=== PATIENT | female | born 1945 | race Caucasian/White ===

== ENCOUNTER 2016-10-02 17:06 | Emergency (ER) | payer MEDICARE, OTHER ==
[~2016-10-02] VITALS: Ht 154.9 cm; Wt 58.5 kg
[~2016-10-02 17:06] MED LIST: CLIN1CAP6 PO; CYCL1TAB29 PO; IBUP800T23 PO; MAGICADU2 SWISH-SPIT; PERI0.126 SWISH-SPIT; PRED-503 PO
[2016-10-02 17:16] VITALS: BP 114/54; PULSE 85; RESP 16; TEMP 97.5; O2SAT 100
[2016-10-02] MEDS ORDERED: PRED20 PO (19:06)
[2016-10-02] MEDS ORDERED: CIPR-9 PO (19:06)
--- NOTE | 2016-10-02 19:24 | PD ---
HPI Chief Complaint: Lump, Cyst, Hernia Time Seen by Provider: 19:22 Travel History International Travel<30 days: No Contact w/Intl Traveler<30days: No Traveled to known affect area: No History of Present Illness HPI This 70-year-old female was sent from her emergency room clerk here for evaluation of a mass on the right posterior scalp. She says the mass has developed over the last few days. She was told she should come here to have it drained and had a scan to make sure it does not extend into the brain. She has not had fever or chills. There is no history of trauma. She emergency room clerk is treating her for a rash in her scalp. PFSH Past Medical History Diminished Hearing: No Musculoskeletal: Yes (sciatica) ?: Not Menopausal: Yes Past Surgical History Appendectomy: Yes Cholecystectomy: Yes Hysterectomy: Yes Tonsillectomy: Yes Social History Alcohol Use: No Tobacco Use: Yes (08/25 PPD) Substance Use: No Allergies-Medications (Allergen,Severity, Reaction): Coded Allergies: Codeine (Verified Allergy, Severe, Anaphylaxis-PT UNSURE OF ALLERGY, ) Penicillin (Verified Allergy, Intermediate, Anaphylaxis, 10/02/16) Reported Meds & Prescriptions Reported Meds & Active Scripts Active Reported Prednisone 20 Mg Tab 20 Mg PO DIRECTED Take 60 MG daily x 4 days, then 40 MG x 4 days, then 20 MG daily x 4 days. Cipro (Ciprofloxacin HCl) 500 Mg Tab 500 Mg PO BID Review of Systems General / Constitutional: No: Fever, Chills Eyes: No: Diploplia HENT: No: Headaches Cardiovascular: No: Chest Pain or Discomfort, Palpitations Respiratory: No: Cough Skin: Positive Rash Physical Exam Narrative GENERAL: [-] Well-developed female SKIN: Warm and dry. There is severe since every dermatitis of the scalp HEAD: Atraumatic. Normocephalic. There is a golf ball sized mass in the right occipital scalp scalp. It is soft EYES: Pupils equal and round. No scleral icterus. No injection or drainage. ENT: No nasal bleeding or discharge. Mucous membranes pink and moist. NECK: Trachea midline. No JVD. CARDIOVASCULAR: Regular rate and rhythm. No murmur appreciated. RESPIRATORY: No accessory muscle use. Clear to auscultation. Breath sounds equal bilaterally. GASTROINTESTINAL: Abdomen soft, non-tender, nondistended. Hepatic and splenic margins not palpable. MUSCULOSKELETAL: No obvious deformities. No clubbing. No cyanosis. No edema. NEUROLOGICAL: Awake and alert. No obvious cranial nerve deficits. Motor grossly within normal limits. Normal speech. PSYCHIATRIC: Appropriate mood and affect; insight and judgment normal. Data Data Last Documented VS Vital Signs Date Time Temp Pulse Resp B/P Pulse Ox O2 Delivery O2 Flow Rate FiO2 10/02/16 20:18 75 16 137/64 100 Room Air 10/02/16 17:[address] Brain W/O Iv Contrast(Rout) (10/02/16 19:22) Wound Culture And Gram Stain (10/02/16 20:28) Lidocaine 1% Inj (50 Ml) (Xylocaine 1% I (10/02/16 20:30) MDM Medical Decision Making Medical Screen Exam Complete: Yes Emergency Medical Condition: Yes Medical Record Reviewed: Yes Differential Diagnosis Differential includes abscess, sebaceous cyst Narrative Course CT is negative. I&D has been performed. Patient is stable for discharge Diagnosis Primary Impression: Abscess of scalp Disposition: DISCHARGE HOME Condition: Stable Agustin Colon MD Oct 02, 2016 19:24
[2016-10-02 20:18] VITALS: BP 137/64; PULSE 75; RESP 16; O2SAT 100
[2016-10-02] MEDS ORDERED: LIDOCAINE HCL 1% 50 ML VIAL INFIL ONE (20:30)
--- NOTE | 2016-10-02 20:46 | PD ---
Physical Exam Date Seen by Provider: Oct 02, 2016 Time Seen by Provider: 20:43 Narrative Patient is a 70-year-old female with a mass on the right posterior scalp around the occiput/superior neck for one month. It has gotten progressively larger. It is painful. It did drain spontaneously once several weeks ago. She is unsure of the type drainage. He is seeing a home school coordinator daily for severe seborrheic dermatitis of the scalp and today they recommended she come to the ED , had a CT scan and have this drained. She is being seen and managed by Dr. Colon who performed a CT scan and asked me to perform incision and drainage. Please refer to his note for full history, physical and disposition. HEAD: 6 cm area of erythema in the right occiput/superior neck that is highly fluctuant. There is a small eschar in the center and some pointing, does appear to be an abscess. It is tender to palpation. There is no surrounding lymphadenopathy or facial or cervical lymphadenopathy bilaterally. No surrounding edema or erythema. It is nonpulsatile. Patient has severe seborrheic dermatitis of the scalp. Data Data Last Documented VS Vital Signs Date Time Temp Pulse Resp B/P Pulse Ox O2 Delivery O2 Flow Rate FiO2 10/02/16 20:18 75 16 137/64 100 Room Air 10/02/16 17:[address] Brain W/O Iv Contrast(Rout) (10/02/16 19:22) Wound Culture And Gram Stain (10/02/16 20:28) Lidocaine 1% Inj (50 Ml) (Xylocaine 1% I (10/02/16 20:30) MDM Medical Record Reviewed: Yes Supervised Visit with GINO: Yes Narrative Course Patient is a 62-year-old female with an apparent abscess on the right occiput being larger for one month. She was sent her by her home school coordinator for drainage. Dr. Colon ordered a CT scan which showed a 5 cm fatty and fluid- filled soft tissue mass. Reexamined with the physician who agrees this is likely a abscess and not a lipoma. Used ultrasound and indeed there is fluid with mixed debris. Doppler shows no flow or pulsations. Performed incision and drainage per attached procedure narrative. Please refer to physician's note for full history, physical and disposition including medications for pain and antibiotics. Procedures Procedure Narrative I&D LOCATION: Right occiput SIZE: 6 cm ANESTHESIA: 1% lidocaine PROCEDURE: The abscess was prepped with Betadine and sterilely draped. The abscess was infiltrated with 4 cc of above anesthetic. Incision was made with a #11 blade with length of 2 cm and depth of 8 mm. Expressed purulent and bloody material, approximately 20 mL. The wound was copiously irrigated and loculations were broken up. The wound was left open and covered with a sterile dressing. Packing was performed with half-inch iodoform. A nonstick dressing and had compression wrap was applied. The patient was advised to keep the dressing clean and dry. Patient tolerated the procedure well. Diagnosis Primary Impression: Abscess of scalp Patient Instructions: Abscess Incision and Drainage (ED), General Instructions Additional Instruction: Keep area clean, dry, and covered with dressing/bandage Apply warm compresses daily to help with drainage Wound will continue to drain which is normal Take Tylenol or ibuprofen for pain Take medications as directed Follow-up with PCP in 2 days for packing removal, call laboratory for wound culture results Return to the ED for any acute worsening of symptoms including worsening swelling, spreading redness, fever, chills, nausea and vomiting Condition: Stable Nithin Ramirez III Oct 02, 2016 20:46
--- NOTE | 2016-10-02 20:50 | RADHPO ---
EXAM DATE/TIME: 10/02/2016 19:52 [facility] COMPARISON: No previous studies available for comparison. INDICATIONS : Right posterior cranial mass. RADIATION DOSE: 56.93 CTDIvol (mGy) MEDICAL HISTORY : Hypertension. SURGICAL HISTORY : Tonsillectomy. ENCOUNTER: Initial ACUITY: 3 days PAIN SCALE: 5/10 LOCATION: Right occipital TECHNIQUE: Multiple contiguous axial images were obtained of the head. Using automated exposure control and adj ustment of the mA and/or kV according to patient size, radiation dose was kept as low as reasonably a chievable to obtain optimal diagnostic quality images. FINDINGS: CEREBRUM: The ventricles are normal for age. No evidence of midline shift, mass lesion, hemorrhage or acute in farction. No extra-axial fluid collections are seen. POSTERIOR FOSSA: The cerebellum and brainstem are intact. The 4th ventricle is midline. The cerebellopontine angle i s unremarkable. EXTRACRANIAL: The visualized portion of the orbits is intact. There is a 5 cm soft tissue in the right occipital re gion. There some interspersed fat the findings are nonspecific. SKULL: The calvaria is intact. No evidence of skull fracture. CONCLUSION: 1. No acute intracranial abnormalities. A 5 cm soft tissue mass with interspersed fat is present in t he subcutaneous tissues of the right occipital region. Jeramy Garcia MD on October 02, 2016 at 20:47 Board Certified Radiologist. This report was verified electronically.
[2016-10-02 22:10] VITALS: BP 115/60; PULSE 85; RESP 18; O2SAT 100
== END 2016-10-02 22:13 | disposition home or self-care (01) ==
LOC: PHED 17:06
DX: R22.0 Localized swelling, mass and lump, head (principal); L02.811 Cutaneous abscess of head [any part, except face]; F17.210 Nicotine dependence, cigarettes, uncomplicated; L21.9 Seborrheic dermatitis, unspecified
CPT/HCPCS: 10061; 70450

== ENCOUNTER 2016-10-05 15:45 | Emergency (ER) | payer MEDICARE, OTHER ==
[~2016-10-05] VITALS: Ht 154.9 cm; Wt 60.0 kg
[~2016-10-05 15:45] MED LIST changes: +CIPR-9 PO; -CLIN1CAP6 PO; -CYCL1TAB29 PO; -IBUP800T23 PO; -MAGICADU2 SWISH-SPIT; -PERI0.126 SWISH-SPIT; -PRED-503 PO; +PRED20 PO
[2016-10-05 16:25] VITALS: BP 139/81; PULSE 86; RESP 16; TEMP 97.3; O2SAT 98
== END 2016-10-05 18:13 | disposition left against medical advice (07) ==
LOC: PHED 15:45 → PHEFT 18:13
DX: L02.811 Cutaneous abscess of head [any part, except face] (principal); Z53.21 Procedure and treatment not carried out due to patient leaving prior to being seen by health care provider
CPT/HCPCS: 99281

== ENCOUNTER 2016-11-23 22:13 | Inpatient (IN) | payer MEDICARE, OTHER ==
[~2016-11-23] VITALS: Ht 157.5 cm; Wt 53.0 kg
[2016-11-23 22:32] VITALS: BP 77/53; PULSE 78; RESP 18; TEMP 97.9; O2SAT 99
[2016-11-23 22:50] VITALS: BP 76/41; PULSE 64; RESP 18; O2SAT 98
[2016-11-23] MEDS ORDERED: SODIUM CHLOR 0.9% 1000 ML INJ 1,000 ML IV ONE ×2 (23:00)
[2016-11-23] MEDS ORDERED: SODIUM CHLORIDE 0.9% FLUSH 10 ML FLUSH IVF PRN (23:00)
--- NOTE | 2016-11-23 23:13 | PD ---
HPI . Fall Chief Complaint: Fall Time Seen by Provider: 23:00 Travel History International Travel<30 days: No Contact w/Intl Traveler<30days: No Traveled to known affect area: No History of Present Illness HPI Presents status post a fall. The history is obtained mainly from her son, with whom she lives. Patient has been dizzy for a while now. Tonight, she became dizzy and fell and struck her head on a piece of furniture. Following this, she was so dizzy that she could not walk. The son was able to convince her to come in to be checked out. The son reports that she has not seen a physician in 20 years. He was finally able to get her to see a primary care doctor 11/19. She was found to have a swollen right lower extremity at that time and was instructed to come to the emergency department to be evaluated for possible DVT. She refused to come. Family reports that they have noticed that she is short winded for the last several days. Patient admits depression since her 5 years ago. She has lost a significant amount of weight. She has lost the will to live. Family reports that she doesn't eat or drink very well. She does not take care of personal ADLs such as washing her hair. The patient has no known medical problems but has not seen a doctor in 20 years. The son states that they were not told anything about her blood pressure being low and she was seen primary care provider this past week. [facility] Past Medical History Diminished Hearing: No Musculoskeletal: Yes (sciatica) Menopausal: Yes Past Surgical History Appendectomy: Yes Cholecystectomy: Yes Hysterectomy: Yes Tonsillectomy: Yes Social History Alcohol Use: No Tobacco Use: Yes (08/25 PPD) Substance Use: No Allergies-Medications (Allergen,Severity, Reaction): Coded Allergies: Codeine (Verified Allergy, Severe, Anaphylaxis-PT UNSURE OF ALLERGY, ) Penicillin (Verified Allergy, Intermediate, Anaphylaxis, 11/23/16) Reported Meds & Prescriptions Reported Meds & Active Scripts Active Reported Prednisone 20 Mg Tab 20 Mg PO DIRECTED Take 60 MG daily x 4 days, then 40 MG x 4 days, then 20 MG daily x 4 days. Cipro (Ciprofloxacin HCl) 500 Mg Tab 500 Mg PO BID Review of Systems Except as stated in HPI: all other systems reviewed are Neg General / Constitutional: No: Fever, Chills Eyes: No: Blurred Vision HENT: Positive: Lightheadedness, No: Headaches Cardiovascular: No: Chest Pain or Discomfort Respiratory: Positive: Shortness of Breath Gastrointestinal: Positive: Loss of Appetite, No: Nausea, Vomiting, Diarrhea, Abdominal Pain Genitourinary: No: Urgency, Frequency, Dysuria Neurologic: Positive: Dizziness, Syncope, No: Change in Mentation, Slurred Speech, Incontinence Psychiatric: Positive: Depression, Other (she states that she does not want to live but she is not contemplating suicide) Physical Exam Narrative GENERAL: Thin, elderly woman who is lying on the stretcher with a washcloth in her mouth. SKIN: Warm and dry. HEAD:. Normocephalic. Contusion to the occiput of her scalp. EYES: Pupils equal and round. Extraocular movements are intact. ENT: No nasal bleeding or discharge. Mucous membranes pink and moist. NECK: Trachea midline. Neck is nontender with full range of motion. CARDIOVASCULAR: Regular rate and rhythm. Heart sounds are normal. RESPIRATORY: No accessory muscle use. Lungs sounded clear with full air movement throughout. GASTROINTESTINAL: Abdomen soft, non-tender, nondistended. No palpable pulsatile abdominal mass. MUSCULOSKELETAL: No obvious deformities. Right lower extremity is swollen. NEUROLOGICAL: Awake and alert. No obvious cranial nerve deficits. Motor grossly within normal limits. Normal speech. PSYCHIATRIC: Depressed, insight and judgment normal. She states "I am not stupid." (referring to suicidal ideation/intent) Data Data Last Documented VS Vital Signs Date Time Temp Pulse Resp B/P Pulse Ox O2 Delivery O2 Flow Rate FiO2 11/23/16 23:32 69 18 92/48 100 Room Air 11/23/16 22:32 97.9 Orders Electrocardiogram (11/23/16 23:00) Complete Blood Count With Diff (11/23/16 23:00) Comprehensive Metabolic Panel (11/23/16 23:00) Magnesium (Mg) (11/23/16 23:00) Ckmb (Isoenzyme) Profile (11/23/16 23:00) Troponin I (11/23/16 23:00) Urinalysis - C+S If Indicated (11/23/16 23:00) Ct Brain W/O Iv Contrast(Rout) (11/23/16 23:00) Ecg Monitoring (11/23/16 23:00) Iv Access Insert/Monitor (11/23/16 23:00) Oximetry (11/23/16 23:00) Sodium Chloride 0.9% Flush (Ns Flush) (11/23/16 23:00) Sodium Chlor 0.9% 1000 Ml Inj (Ns 1000 M (11/23/16 23:00) Ct Pulmonary Angiogram (11/23/16 23:00) Us Leg Venous Doppler (11/23/16 23:00) Sodium Chlor 0.9% 1000 Ml Inj (Ns 1000 M (11/23/16 23:00) Labs Laboratory Tests Test 11/23/16 23:15 White Blood Count 10.6 TH/MM3 Red Blood Count 4.03 MIL/MM3 Hemoglobin 11.1 GM/DL Hematocrit 34.4 % Mean Corpuscular Volume 85.3 FL Mean Corpuscular Hemoglobin 27.4 PG Mean Corpuscular Hemoglobin 32.1 % Concent Red Cell Distribution Width 14.9 % Platelet Count 439 TH/MM3 Mean Platelet Volume 6.6 FL Neutrophils (%) (Auto) 82.2 % Lymphocytes (%) (Auto) 10.5 % Monocytes (%) (Auto) 4.0 % Eosinophils (%) (Auto) 2.7 % Basophils (%) (Auto) 0.6 % Neutrophils # (Auto) 8.8 TH/MM3 Lymphocytes # (Auto) 1.1 TH/MM3 Monocytes # (Auto) 0.4 TH/MM3 Eosinophils # (Auto) 0.3 TH/MM3 Basophils # (Auto) 0.1 TH/MM3 CBC Comment DIFF FINAL Differential Comment Sodium Level 136 MEQ/L Potassium Level 3.2 MEQ/L Chloride Level 101 MEQ/L Carbon Dioxide Level 23.3 MEQ/L Anion Gap 12 MEQ/L Blood Urea Nitrogen 14 MG/DL Creatinine 1.10 MG/DL Estimat Glomerular Filtration 49 ML/MIN Rate Random Glucose 122 MG/DL Calcium Level 8.3 MG/DL Magnesium Level 2.3 MG/DL Total Bilirubin 0.4 MG/DL Aspartate Amino Transf 14 U/L (AST/SGOT) Alanine Aminotransferase 17 U/L (ALT/SGPT) Total Protein 6.3 GM/DL Albumin 2.5 GM/DL MDM Medical Decision Making Medical Screen Exam Complete: Yes Emergency Medical Condition: Yes Medical Record Reviewed: Yes (I have reviewed her records and she has actually been seen here on several previous occasions in the recent past. She is usually normotensive. Her medical problems listed in the medical record include tobacco abuse, sciatica and asthma. I have also reviewed her previous weights. She weight 79 kg in 2015 and weight 77 kg tonight.) Interpretation(s) EKG shows a sinus rhythm. Left axis deviation. No ST segment elevation or depression. No old EKGs for comparison. Differential Diagnosis Differential diagnosis of dizziness includes but is not limited to vertigo, dehydration, acute blood loss, sepsis, ACS Narrative Course Patient presents for the evaluation of dizziness which caused syncope and a fall tonight. The patient is hypotensive. She will be fluid resuscitated. I will ultrasound her leg to rule out DVT. I will CT her chest to look for PE. I will CT her head to r/o intracerebral hemorrhage. She will probably need to be admitted for further evaluation of failure to thrive. CBC & BMP Diagram 11/23/16 23:15 Patient's care is being signed out to Dr. Clarke pending her radiographic studies. The patient's blood pressure is improving with IV fluids. Diagnosis Primary Impression: Hypotension Qualified Code: I95.9 - Hypotension, unspecified hypotension type Additional Impression: Syncope Qualified Code: R55 - Syncope, unspecified syncope type Condition: Esme Moreno MD Nov 23, 2016 23:13
[2016-11-23 23:29] LABS: AUTOMATED NEUTROPHIL # 8.8 TH/MM3 (1.8-7.7); BASOPHIL # 0.1 TH/MM3 (0-0.2); BASOPHIL % 0.6 % (0.0-2.0); EOSINOPHIL # 0.3 TH/MM3 (0-0.4); EOSINOPHIL % 2.7 % (0.0-4.0); HEMATOCRIT 34.4 % (35.0-46.0); LYMPH % 10.5 % (9.0-44.0); LYMPHOCYTE # 1.1 TH/MM3 (1.0-4.8); MEAN CELL VOLUME 85.3 FL (80.0-100.0); MEAN CORPUSCULAR HEMOGLOBIN 27.4 PG (27.0-34.0); MEAN CORPUSCULAR HGB CONC 32.1 % (32.0-36.0); NEUT % 82.2 % (16.0-70.0); PLATELET COUNT 439 TH/MM3 (150-450); RED BLOOD COUNT 4.03 MIL/MM3 (4.00-5.30); RED CELL DISTRIBUTION WIDTH 14.9 % (11.6-17.2); WHITE BLOOD COUNT 10.6 TH/MM3 (4.0-11.0)
[2016-11-23 23:32] VITALS: BP 92/48; PULSE 69; RESP 18; O2SAT 100
[2016-11-23 23:35] LABS: HEMO FLAGS DIFF FINAL
[2016-11-23 23:42] LABS: CHLORIDE 101 MEQ/L (98-107); POTASSIUM 3.2 MEQ/L (3.5-5.1); SODIUM (NA) 136 MEQ/L (136-145)
[2016-11-23 23:47] LABS: ANION GAP 12 MEQ/L (5-15); BICARBONATE 23.3 MEQ/L (21.0-32.0); BLOOD UREA NITROGEN 14 MG/DL (7-18); MAGNESIUM 2.3 MG/DL (1.5-2.5)
[2016-11-23 23:50] LABS: ALT (GPT) 17 U/L (10-53); AST (GOT) 14 U/L (15-37); GLOMERULAR FILTRATION RATE 49 ML/MIN (>89)
[2016-11-23 23:52] LABS: TOTAL BILIRUBIN ADULT 0.4 MG/DL (0.2-1.0)
[2016-11-23 23:53] LABS: ALKALINE PHOSPHATASE 107 U/L (45-117)
[2016-11-24] VITALS (8 sets, daily range): BP systolic 100–127; BP diastolic 46–69; PULSE 64–78; RESP 16–19; TEMP 97.5–98.2; O2SAT 95–100
[2016-11-24 00:02] LABS: CREATINE KINASE 36 U/L (26-192)
--- NOTE | 2016-11-24 00:11 | RADHPO ---
EXAM DATE/TIME: 11/24/2016 04:39 [facility] COMPARISON: No previous studies available for comparison. INDICATIONS : Right leg pain. MEDICAL HISTORY : Right leg pain. Weight loss. Dizziness. Shortness of breath. SURGICAL HISTORY : Hysterectomy. Arthroscopy. Cholecystectomy. ENCOUNTER: Initial ACUITY: 1 week PAIN SCORE: 6/10 LOCATION: Right leg. TECHNIQUE: Venous ultrasound of the leg was performed from the inguinal ligament to the proximal calf. Real-geraldo e, color Doppler and spectral tracing, compression and augmentation techniques were used. FINDINGS: Echogenic noncompressible material is seen throughout the deep venous structures of the right lower e xtremity. This is occlusive involving the external iliac vein, common femoral vein, and superficial f emoral vein. This is nonocclusive involving the popliteal vein and trifurcation veins. CONCLUSION: Extensive DVT. Ck Cardoza Jr., MD on November 24, 2016 at 0:07 Board Certified Radiologist. This report was verified electronically.
[2016-11-24] MEDS ORDERED: EXCETAB2 PO (00:17)
[2016-11-24] MEDS ORDERED: IOHEXOL 350 MG/ML 10 ML VIAL (for RAD DIAG) IV ONE (00:59)
--- NOTE | 2016-11-24 01:05 | RADHPO ---
EXAM DATE/TIME: 11/24/2016 00:31 [facility] COMPARISON: No previous studies available for comparison. INDICATIONS : Syncope. Difficulty breathing. IV CONTRAST: 75 cc Omnipaque 350 (iohexol) IV RADIATION DOSE: 7.57 CTDIvol (mGy) MEDICAL HISTORY : None SURGICAL HISTORY : Cholecystectomy. Appendectomy.Hysterectomy. ENCOUNTER: Initial ACUITY: 3 days PAIN SCALE: 2/10 LOCATION: Bilateral chest TECHNIQUE: Volumetric scanning of the chest was performed using a pulmonary embolism protocol MIP images were re constructed. Using automated exposure control and adjustment of the mA and/or kV according to patien t size, radiation dose was kept as low as reasonably achievable to obtain optimal diagnostic quality images. FINDINGS: PULMONARY ARTERIES: No filling defects are seen in the pulmonary arteries through the segmental level. LUNGS: There is no consolidation or pneumothorax . No concerning pulmonary nodule is visualized. PLEURAE: There is no pleural thickening or pleural effusion. MEDIASTINUM: There is good visualization of the great vessels of the middle mediastinum. No evidence of mediastin al or hilar adenopathy/mass. MUSCULOSKELETAL: Within normal limits for patient age. MISCELLANEOUS: The visualized upper abdominal organs demonstrate no acute abnormality. CONCLUSION: Normal examination. Ck Cardoza Jr., MD on November 24, 2016 at 1:00 Board Certified Radiologist. This report was verified electronically.
--- NOTE | 2016-11-24 01:06 | RADHPO ---
EXAM DATE/TIME: 11/24/2016 00:26 [facility] COMPARISON: CT BRAIN W/O CONTRAST, October 02, 2016, 19:52. INDICATIONS : Dizzines. Fall. Syncope. RADIATION DOSE: 57.80 CTDIvol (mGy) MEDICAL HISTORY : None SURGICAL HISTORY : Hysterectomy. Appendectomy.Cholecystectomy. ENCOUNTER: Initial ACUITY: 3 days PAIN SCALE: 2/10 LOCATION: cranial TECHNIQUE: Multiple contiguous axial images were obtained of the head. Using automated exposure control and adj ustment of the mA and/or kV according to patient size, radiation dose was kept as low as reasonably a chievable to obtain optimal diagnostic quality images. FINDINGS: CEREBRUM: The ventricles are normal for age. No evidence of midline shift, mass lesion, hemorrhage or acute in farction. No extra-axial fluid collections are seen. POSTERIOR FOSSA: The cerebellum and brainstem are intact. The 4th ventricle is midline. The cerebellopontine angle i s unremarkable. EXTRACRANIAL: The visualized portion of the orbits is intact. SKULL: The calvaria is intact. No evidence of skull fracture. CONCLUSION: Normal examination. Ck Cardoza Jr., MD on November 24, 2016 at 1:04 Board Certified Radiologist. This report was verified electronically.
[2016-11-24] MEDS ORDERED: ENOXAPARIN SODIUM 80 MG/0.8 ML SYRINGE SQ ONE (01:15)
--- NOTE | 2016-11-24 01:32 | PD ---
Physical Exam Narrative Patient is a 70-year-old female signed out to me by Dr. Alvarado to follow-up imaging and disposition. Please see her note for complete details. Briefly, patient comes in after several days of dizziness and a syncopal episode today. She was found to be hypotensive in triage. Patient has large swelling of her right leg on exam. Data Data Last Documented VS Vital Signs Date Time Temp Pulse Resp B/P Pulse Ox O2 Delivery O2 Flow Rate FiO2 11/23/16 23:32 69 18 92/48 100 Room Air 11/23/16 22:32 97.9 Orders Electrocardiogram (11/23/16 23:00) Complete Blood Count With Diff (11/23/16 23:00) Comprehensive Metabolic Panel (11/23/16 23:00) Magnesium (Mg) (11/23/16 23:00) Ckmb (Isoenzyme) Profile (11/23/16 23:00) Troponin I (11/23/16 23:00) Urinalysis - C+S If Indicated (11/23/16 23:00) Ecg Monitoring (11/23/16 23:00) Iv Access Insert/Monitor (11/23/16 23:00) Oximetry (11/23/16 23:00) Sodium Chloride 0.9% Flush (Ns Flush) (11/23/16 23:00) Sodium Chlor 0.9% 1000 Ml Inj (Ns 1000 M (11/23/16 23:00) Us Leg Venous Doppler (11/23/16 23:00) Sodium Chlor 0.9% 1000 Ml Inj (Ns 1000 M (11/23/16 23:00) Ct Pulmonary Angiogram (11/24/16 00:15) Ct Brain W/O Iv Contrast(Rout) (11/24/16 00:15) Iohexol 350 Inj (Omnipaque 350 Inj) (11/24/16 00:59) Enoxaparin Inj (Lovenox Inj) (11/24/16 01:15) Admit Order (Ed Use Only) (11/24/16 ) Labs Laboratory Tests Test 11/23/16 23:15 White Blood Count 10.6 TH/MM3 Red Blood Count 4.03 MIL/MM3 Hemoglobin 11.1 GM/DL Hematocrit 34.4 % Mean Corpuscular Volume 85.3 FL Mean Corpuscular Hemoglobin 27.4 PG Mean Corpuscular Hemoglobin 32.1 % Concent Red Cell Distribution Width 14.9 % Platelet Count 439 TH/MM3 Mean Platelet Volume 6.6 FL Neutrophils (%) (Auto) 82.2 % Lymphocytes (%) (Auto) 10.5 % Monocytes (%) (Auto) 4.0 % Eosinophils (%) (Auto) 2.7 % Basophils (%) (Auto) 0.6 % Neutrophils # (Auto) 8.8 TH/MM3 Lymphocytes # (Auto) 1.1 TH/MM3 Monocytes # (Auto) 0.4 TH/MM3 Eosinophils # (Auto) 0.3 TH/MM3 Basophils # (Auto) 0.1 TH/MM3 CBC Comment DIFF FINAL Differential Comment Sodium Level 136 MEQ/L Potassium Level 3.2 MEQ/L Chloride Level 101 MEQ/L Carbon Dioxide Level 23.3 MEQ/L Anion Gap 12 MEQ/L Blood Urea Nitrogen 14 MG/DL Creatinine 1.10 MG/DL Estimat Glomerular Filtration 49 ML/MIN Rate Random Glucose 122 MG/DL Calcium Level 8.3 MG/DL Magnesium Level 2.3 MG/DL Total Bilirubin 0.4 MG/DL Aspartate Amino Transf 14 U/L (AST/SGOT) Alanine Aminotransferase 17 U/L (ALT/SGPT) Alkaline Phosphatase 107 U/L Total Creatine Kinase 36 U/L Troponin I LESS THAN 0.02 NG/ML Total Protein 6.3 GM/DL Albumin 2.5 GM/DL [facility] Supervised Visit with GINO: No Narrative Course Doppler ultrasound of the right leg is positive for extensive DVTs. CTA of the chest is negative for PE. CT of the head is negative for any acute findings. Labs are within normal limits. Patient given a dose of Lovenox. Her blood pressure has improved after 2 L of fluids. She will be admitted for further management. Diagnosis Primary Impression: DVT (deep venous thrombosis) Qualified Code: I82.491 - Acute deep vein thrombosis (DVT) of other specified vein of right lower extremity Additional Impressions: Syncope Qualified Code: R55 - Syncope, unspecified syncope type Hypotension Qualified Code: I95.9 - Hypotension, unspecified hypotension type Admitting Information Admitting Physician Requests: Admit Condition: Belia Moreno MD Nov 24, 2016 01:32
[2016-11-24 01:46] LABS: BLOOD, URINE NEG (NEG); GLUCOSE,URINE NEG (NEG); KETONE, URINE NEG (NEG); NITRITE,URINE NEG (NEG)
[2016-11-24 01:57] LABS: METHOD OF COLLECTION VOIDED; URINE COLOR YELLOW (YELLW/STRAW)
[2016-11-24 01:58] LABS: MUCUS URINE MOD /lpf (OCC)
[2016-11-24 02:01] LABS: BACTERIA, URINE OCC /hpf; COMMENT (UR) CULT NOT INDICATED; CULTURE IF INDICATED CULT NOT INDICATED; WBC, URINE 0-2 /hpf (0-5)
[2016-11-24] MEDS ORDERED: SODIUM CHLORIDE 0.9% FLUSH 10 ML FLUSH IV FLUSH PRN (02:30)
[2016-11-24] MEDS ORDERED: ONDANSETRON HCL 4 MG/2 ML VIAL IVP PRN (02:30)
[2016-11-24] MEDS ORDERED: SENNOSIDES 8.6 MG TAB PO PRN (02:30)
[2016-11-24] MEDS ORDERED: ACETAMINOPHEN 325 MG TAB PO PRN ×2 (02:30)
[2016-11-24] MEDS ORDERED: SODIUM CHLOR 0.9% 1000 ML INJ 1,000 ML IV SCH (02:30)
[2016-11-24] MEDS: ENOXAPARIN SODIUM 80 MG/0.8 ML SYRINGE SQ SCH ×2 (02:30→12:51)
[2016-11-24] MEDS ORDERED: MAGNESIUM HYDROXIDE SUSP 30 ML CUP PO PRN (02:30)
[2016-11-24] MEDS ORDERED: BISACODYL 10 MG SUPP RECTAL PRN (02:30)
[2016-11-24] MEDS: SODIUM CHLORIDE 0.9% FLUSH 10 ML FLUSH IV FLUSH SCH ×2 (09:00→21:00)
--- NOTE | 2016-11-24 10:40 | MH ---
cc: REN ENAMORADO MD DATE OF ADMISSION 11/24/2016 CHIEF COMPLAINT Status post fall. HISTORY OF PRESENT ILLNESS This is a 70-year-old female with a past medical-surgical history significant for sciatica, appendectomy, cholecystectomy, hysterectomy, tonsillectomy, smoker. She has been dizzy for a while and last night she became dizzy and she fell and struck her head on the piece of furniture. Following this, she was so dizzy that she could not walk. Her son was able to convince her to come to the ER. The patient's son reported in the ER that she has not seen a physician for 20-year and he was finally able to get her to see a primary care doctor on 11/19/2016 and she was found to have a swollen right lower extremity at that time and was instructed to come to the emergency department to evaluate for possible DVT. She refused to come. The family reports that they have noticed that she is short-winded for the last several days. The patient admitted to depression when her five years ago. She has lost a significant amount of weight. She has lost the will to live. She does not eat or drink well. She does not take care of her activities of daily living such as washing her hair. The patient has no known medical problem, but has not seen a doctor in 20 years. Other than that, she denies any complaints other than on examination. PAST MEDICAL AND SURGICAL HISTORY As dictated above. SOCIAL HISTORY She smokes one-third of a pack a day since the age of 13 and she lives with her kids at home. She is retired from [employer]. FAMILY HISTORY Nothing significant. ALLERGIES CODEINE AND PENICILLIN MEDICATIONS Include: 1. Prednisone 20 mg p.o. as directed 2. Cipro 500 grams twice a day REVIEW OF SYSTEMS All review of systems are negative except for generalized weakness. PHYSICAL EXAMINATION This is a 70-year-old female laying on the bed not in acute distress. VITAL SIGNS: Temperature is 97.7, heart rate 65, respirations 17, blood pressure 100/52, O2 saturation and 100% on room air. HEENT: Normocephalic status post mild head trauma. EOMI, PERRL. Oral mucosa moist. NECK: Neck is supple. No visible thyromegaly or neck mass. Trachea central. CARDIOVASCULAR: Regular rate and rhythm. RESPIRATORY: Respirations are clear to auscultation bilaterally. ABDOMEN: Soft, nontender. Bowel sounds audible. EXTREMITIES: No cyanosis or clubbing. Full range of motion of all extremities. NEUROLOGIC: Awake, alert, and oriented x4. No focal deficits. SKIN: Warm and dry. PSYCH: The patient is cooperative. Mood and affect is normal. LABORATORY DATA Include CBC is totally unremarkable except for hemoglobin 11.1, hematocrit 34.4, MPV 6.6 low, neutrophil is 82.2 high. BMP totally unremarkable except for a potassium 3.2 low, creatinine 1.1 high, GFR 49, glucose 122 high, calcium 8.3 low, troponin-I less than 0.02, total protein 6.3, albumin 2.5. Urine examination done shows history of squamous epithelial cells. Urine bacteria , urine mucus moderate. Ultrasound of the lower extremities done shows extensive DVT. CT of the brain was done shows normal examination. CT angio chest was done shows normal examination. ASSESSMENT/PLAN This is a 70-year female who came to the ER diagnosed with dizziness leading to status post fall and mild head injury. CT brain does not show anything acute. We will monitor the patient neurologically. Extensive DVT in the right lower extremity involving the external iliac vein, common femoral vein and superficial femoral vein and a nonocclusive involved the popliteal vein and trifurcation vein. The patient is on Lovenox 75 mg subcutaneous twice a day. Hematology consulted. Further recommendation per hematology. Depression. I will start the patient on Lexapro 10 mg p.o. daily. Smoking, advised to quit. DVT prophylaxis. The patient on Lovenox. GI prophylaxis, Protonix 40 mg p.o. daily. We are going to manage the patient on a daily basis, make recommendations on a daily basis. Ren Enamorado MD EA/MARY /10:09 AM /10:23 AM
--- NOTE | 2016-11-24 10:46 | EKG ---
Date Performed: 11/23/2016 Time Performed: 22:37:30 PTAGE: 70 years EKG: Sinus rhythm Leftward axis Borderline ECG Compared to prior tracing no significant change PREVIOUS TRACING : 06/25/1998 19.13 DOCTOR: Lorrie Hugo Interpretating Date/Time 11/24/2016 10:40:33
[2016-11-24] MEDS ORDERED: POTASSIUM CHLORIDE 20 MEQ CONTROLLED RELEASE TAB PO ONE (11:00)
[2016-11-25] VITALS: BP 138/66; PULSE 66; RESP 20; TEMP 97.8; O2SAT 100
[2016-11-25] MEDS: ENOXAPARIN SODIUM 80 MG/0.8 ML SYRINGE SQ SCH ×2 (02:46→17:33)
[2016-11-25 06:51] LABS: AUTOMATED NEUTROPHIL # 4.9 TH/MM3 (1.8-7.7); BASOPHIL % 0.3 % (0.0-2.0); EOSINOPHIL # 0.3 TH/MM3 (0-0.4); HEMATOCRIT 30.7 % (35.0-46.0); HEMO FLAGS DIFF FINAL; LYMPH % 17.8 % (9.0-44.0); LYMPHOCYTE # 1.2 TH/MM3 (1.0-4.8); MEAN CELL VOLUME 86.8 FL (80.0-100.0); MEAN CORPUSCULAR HEMOGLOBIN 27.8 PG (27.0-34.0); NEUT % 71.9 % (16.0-70.0); PLATELET COUNT 416 TH/MM3 (150-450); RED BLOOD COUNT 3.54 MIL/MM3 (4.00-5.30); RED CELL DISTRIBUTION WIDTH 15.3 % (11.6-17.2); WHITE BLOOD COUNT 6.8 TH/MM3 (4.0-11.0)
[2016-11-25 07:10] LABS: BICARBONATE 21.4 MEQ/L (21.0-32.0); POTASSIUM 3.5 MEQ/L (3.5-5.1)
[2016-11-25 08:00] VITALS: BP 128/73; PULSE 78; RESP 16; TEMP 98.2; O2SAT 98
[2016-11-25] MEDS: SODIUM CHLORIDE 0.9% FLUSH 10 ML FLUSH IV FLUSH SCH ×2 (08:13→21:00)
--- NOTE | 2016-11-25 08:13 | HHI.PR ---
Subjective History of Present Illness Patient deny any complaints, Hematology consulted Review of Systems Constitutional Constitutional: Fatigue, Weakness Vitals/Results Intake & Output 11/24/16 11/24/16 11/25/16 15:00 23:00 07:00 Intake Total 240 ml 480 ml 640 ml Balance 240 ml 480 ml 640 ml Intake Oral 240 ml 480 ml 640 ml # Voids 2 3 # Bowel Movements 0 0 Vital Signs Vital Signs Date Time Temp Pulse Resp B/P Pulse Ox O2 Delivery O2 Flow Rate FiO2 11/25/16 00:00 97.8 66 20 138/66 100 11/24/16 20:00 98.2 78 18 121/69 100 11/24/16 16:00 97.7 74 18 110/63 96 11/24/16 12:00 97.6 66 19 100/66 96 11/24/16 09:00 97.7 65 17 100/52 95 CBC/BMP: 11/25/16 0515 11/25/16 0515 Lab Results Laboratory Tests Test 11/25/16 05:15 White Blood Count 6.8 TH/MM3 Red Blood Count 3.54 MIL/MM3 Hemoglobin 9.8 GM/DL Hematocrit 30.7 % Mean Corpuscular Volume 86.8 FL Mean Corpuscular Hemoglobin 27.8 PG Mean Corpuscular Hemoglobin 32.0 % Concent Red Cell Distribution Width 15.3 % Platelet Count 416 TH/MM3 Mean Platelet Volume 6.4 FL Neutrophils (%) (Auto) 71.9 % Lymphocytes (%) (Auto) 17.8 % Monocytes (%) (Auto) 6.0 % Eosinophils (%) (Auto) 4.0 % Basophils (%) (Auto) 0.3 % Neutrophils # (Auto) 4.9 TH/MM3 Lymphocytes # (Auto) 1.2 TH/MM3 Monocytes # (Auto) 0.4 TH/MM3 Eosinophils # (Auto) 0.3 TH/MM3 Basophils # (Auto) 0.0 TH/MM3 CBC Comment DIFF FINAL Differential Comment Sodium Level 141 MEQ/L Potassium Level 3.5 MEQ/L Chloride Level 110 MEQ/L Carbon Dioxide Level 21.4 MEQ/L Anion Gap 10 MEQ/L Blood Urea Nitrogen 7 MG/DL Creatinine 0.68 MG/DL Estimat Glomerular Filtration 86 ML/MIN Rate Random Glucose 78 MG/DL Calcium Level 7.6 MG/DL Physical Exam General General Appearance: No Acute Distress, Comfortable Eyes Eye Exam: Pupils Equal, Pupils Reactive Throat Throat Exam: Oral Mucosa [place] & Moist, Oral Pharynx Normal Neck Neck Exam: Neck Supple, Trachea Midline Pulmonary Resp Exam: Clear Bilaterally, Breath Sounds Equal, No Distress Cardiology CV Exam: Regular, Normal Sinus Rhythm Musculoskeletal MS Exam: Normal Tone Integumentary Skin Exam: Clear, Warm, Dry, Intact Extremeties Extremities Exam: No Edema Neurologic Neuro Exam: Alert, Awake, Oriented, Moving All Extremities VTE Prophylaxis VTE Prophylaxis Meds: Lovenox PUD Prophylasis PUD Prophylaxis: Protonix Assessment/Plan Assessment/Plan ASSESSMENT/PLAN This is a 70-year female who came to the ER diagnosed with dizziness leading to status post fall and mild head injury. CT brain does not show anything acute. We will monitor the patient neurologically. Extensive DVT in the right lower extremity involving the external iliac vein, common femoral vein and superficial femoral vein and a nonocclusive involved the popliteal vein and trifurcation vein. The patient is on Lovenox 77 mg subcutaneous twice a day. Hematology consulted. Further recommendation per hematology. Depression. the patient on Lexapro 10 mg p.o. daily. Smoking, advised to quit. DVT prophylaxis. The patient on Lovenox. GI prophylaxis, Protonix 40 mg p.o. daily. We are going to manage the patient on a daily basis, make recommendations on a daily basis. Discussed Condition with: Patient Ren Gonzalez MD Nov 25, 2016 08:13
[2016-11-25] MEDS: ESCITALOPRAM OXALATE 10 MG TAB PO SCH (09:08)
[2016-11-25 12:00] VITALS: BP 114/75; PULSE 97; RESP 18; TEMP 97.4; O2SAT 99
[2016-11-25 16:00] VITALS: BP 116/64; PULSE 85; RESP 18; TEMP 97.6; O2SAT 98
[2016-11-25 20:00] VITALS: BP 113/60; PULSE 84; RESP 20; TEMP 98.1; O2SAT 98
[2016-11-26] VITALS: BP 128/61; PULSE 75; RESP 20; TEMP 98.6; O2SAT 98
[2016-11-26] MEDS: ENOXAPARIN SODIUM 80 MG/0.8 ML SYRINGE SQ SCH ×2 (03:33→18:07)
[2016-11-26 08:00] VITALS: BP 112/70; PULSE 70; RESP 19; TEMP 97.6; O2SAT 99
--- NOTE | 2016-11-26 08:14 | HHI.PR ---
Subjective History of Present Illness Patient deny any complaints, Hematology consulted no acute issue. Review of Systems Constitutional Constitutional: Fatigue, Weakness Vitals/Results Intake & Output 11/25/16 11/25/16 11/26/16 15:00 23:00 07:00 Intake Total 675 ml 240 ml 720 ml Balance 675 ml 240 ml 720 ml Intake Oral 675 ml 240 ml 720 ml # Voids 4 2 2 # Bowel Movements 0 0 Vital Signs Vital Signs Date Time Temp Pulse Resp B/P Pulse Ox O2 Delivery O2 Flow Rate FiO2 11/26/16 08:00 97.6 70 19 112/70 99 11/26/16 00:00 98.6 75 20 128/61 98 11/25/16 20:00 98.1 84 20 113/60 98 11/25/16 16:00 97.6 85 18 116/64 98 11/25/16 12:00 97.4 97 18 114/75 99 CBC/BMP: 11/25/16 0515 11/25/16 0515 Physical Exam General General Appearance: No Acute Distress, Comfortable Eyes Eye Exam: Pupils Equal, Pupils Reactive Throat Throat Exam: Oral Mucosa [place] & Moist, Oral Pharynx Normal Neck Neck Exam: Neck Supple, Trachea Midline Pulmonary Resp Exam: Clear Bilaterally, Breath Sounds Equal, No Distress Cardiology CV Exam: Regular, Normal Sinus Rhythm Musculoskeletal MS Exam: Normal Tone Integumentary Skin Exam: Clear, Warm, Dry, Intact Extremeties Extremities Exam: No Edema Neurologic Neuro Exam: Alert, Awake, Oriented, Moving All Extremities VTE Prophylaxis VTE Prophylaxis Meds: Lovenox PUD Prophylasis PUD Prophylaxis: Protonix Assessment/Plan Assessment/Plan ASSESSMENT/PLAN This is a 70-year female who came to the ER diagnosed with dizziness leading to status post fall and mild head injury. CT brain does not show anything acute. We will monitor the patient neurologically. Extensive DVT in the right lower extremity involving the external iliac vein, common femoral vein and superficial femoral vein and a nonocclusive involved the popliteal vein and trifurcation vein. The patient is on Lovenox 77 mg subcutaneous twice a day. Hematology consulted. Further recommendation per hematology. Depression. the patient on Lexapro 10 mg p.o. daily. Smoking, advised to quit. DVT prophylaxis. The patient on Lovenox. GI prophylaxis, Protonix 40 mg p.o. daily. We are going to manage the patient on a daily basis, make recommendations on a daily basis. Discussed Condition with: Patient Ren Gonzalez MD Nov 26, 2016 08:14
[2016-11-26] MEDS: ESCITALOPRAM OXALATE 10 MG TAB PO SCH (09:18)
[2016-11-26] MEDS: SODIUM CHLORIDE 0.9% FLUSH 10 ML FLUSH IV FLUSH SCH ×2 (09:18→21:00)
[2016-11-26 12:00] VITALS: BP 115/75; PULSE 72; RESP 18; TEMP 97.4; O2SAT 98
[2016-11-26 16:00] VITALS: BP 133/81; PULSE 88; RESP 19; TEMP 97.8; O2SAT 98
[2016-11-26] MEDS ORDERED: DIATRIZOATE MEGLUM/DIATRIZOATE SOD 9 ML CUP PO ONE (17:45)
[2016-11-26 20:00] VITALS: BP 125/64; PULSE 78; RESP 18; TEMP 97.8; O2SAT 99
[2016-11-26] MEDS ORDERED: IOHEXOL 350 MG/ML 10 ML VIAL (for RAD DIAG) IV ONE (20:04)
[2016-11-26 20:11] LABS: FERRITIN 310 NG/ML (8-252); LDH SERUM 272 U/L (84-246); TRANSFERRIN IRON PROFILE 137 MG/DL (200-360)
--- NOTE | 2016-11-26 20:58 | RADHPO ---
EXAM DATE/TIME: 11/26/2016 19:46 [facility] COMPARISON: No previous studies available for comparison. INDICATIONS : Weight loss. IV CONTRAST: 75 cc Omnipaque 350 (iohexol) IV ORAL CONTRAST: Prescribed oral contrast ingested. RADIATION DOSE: 5.06 CTDIvol (mGy) MEDICAL HISTORY : Deep venous thrombosis. Hypotension. SURGICAL HISTORY : Appendectomy. Cholecystectomy.Hysterectomy. ENCOUNTER: Initial ACUITY: 2 days PAIN SCALE: 0/10 LOCATION: Bilateral Abdomen and pelvis. TECHNIQUE: Volumetric scanning of the abdomen and pelvis was performed. Using automated exposure control and adjustment of the mA and/or kV according to patient size, radiation dose was kept as low as reasonably achievable to obtain optimal diagnostic quality images. FINDINGS: CT Abdomen: The liver, spleen, pancreas, right adrenal are unremarkable. There is slight prominence o f the left adrenal limbs without a clear dominant mass. There are tiny cysts in both kidneys. There i s no evidence for any appreciable pathological adenopathy, free fluid, or bowel obstruction. Chronic vascular calcifications are present involving the aorta, iliac arteries without any significant sten osis or aneurysmal dilatations for technique. CT pelvis: There is no evidence for mass, abscess formation, or any significant adenopathy within the pelvis. There is extensive DVT which extends from the common femoral vein all the way up into the IV C to the level of the intrahepatic portion. CONCLUSION: Extensive DVT on the right which extends all the way up to the IVC. Marjorie Hyman MD on November 26, 2016 at 20:53 Board Certified Radiologist. This report was verified electronically.
[2016-11-27] VITALS: BP 143/62; PULSE 73; RESP 16; TEMP 97.4; O2SAT 98
[2016-11-27] MEDS: ENOXAPARIN SODIUM 80 MG/0.8 ML SYRINGE SQ SCH ×2 (05:31→17:13)
[2016-11-27 08:00] VITALS: BP 118/68; PULSE 73; RESP 18; TEMP 96.9; O2SAT 98
--- NOTE | 2016-11-27 08:05 | HHI.PR ---
Subjective History of Present Illness Patient deny any complaints, Hematology input noted wants Paradexa to start. Review of Systems Constitutional Constitutional: Fatigue, Weakness Vitals/Results Intake & Output 11/26/16 11/26/16 11/27/16 15:00 23:00 07:00 Intake Total 600 ml 0 ml Balance 600 ml 0 ml Intake Oral 600 ml 0 ml # Voids 5 2 # Bowel Movements 0 0 Vital Signs Vital Signs Date Time Temp Pulse Resp B/P Pulse Ox O2 Delivery O2 Flow Rate FiO2 11/27/16 00:00 97.4 73 16 143/62 98 11/26/16 20:00 97.8 78 18 125/64 99 11/26/16 16:00 97.8 88 19 133/81 98 11/26/16 12:00 97.4 72 18 115/75 98 CBC/BMP: 11/25/16 0515 11/25/16 0515 Lab Results Laboratory Tests Test 11/26/16 18:10 Iron Level 28 MCG/DL Total Iron Binding Capacity 192 MCG/DL Percent Iron Saturation 14.6 % Ferritin 310 NG/ML Lactate Dehydrogenase 272 U/L Vitamin B12 Level 278 PG/ML Folate 2.9 NG/ML Physical Exam General General Appearance: No Acute Distress, Comfortable Eyes Eye Exam: Pupils Equal, Pupils Reactive Throat Throat Exam: Oral Mucosa [place] & Moist, Oral Pharynx Normal Neck Neck Exam: Neck Supple, Trachea Midline Pulmonary Resp Exam: Clear Bilaterally, Breath Sounds Equal, No Distress Cardiology CV Exam: Regular, Normal Sinus Rhythm Musculoskeletal MS Exam: Normal Tone Integumentary Skin Exam: Clear, Warm, Dry, Intact Extremeties Extremities Exam: No Edema Neurologic Neuro Exam: Alert, Awake, Oriented, Moving All Extremities VTE Prophylaxis VTE Prophylaxis Meds: Lovenox PUD Prophylasis PUD Prophylaxis: Protonix Assessment/Plan Assessment/Plan ASSESSMENT/PLAN This is a 70-year female who came to the ER diagnosed with dizziness leading to status post fall and mild head injury. CT brain does not show anything acute. We will monitor the patient neurologically. Extensive DVT in the right lower extremity involving the external iliac vein, common femoral vein and superficial femoral vein and a nonocclusive involved the popliteal vein and trifurcation vein. The patient is on Lovenox 77 mg subcutaneous twice a day. Hematology input noted. Further recommendation per hematology. Depression. the patient on Lexapro 10 mg p.o. daily. Smoking, advised to quit. DVT prophylaxis. The patient on Lovenox. GI prophylaxis, Protonix 40 mg p.o. daily. We are going to manage the patient on a daily basis, make recommendations on a daily basis. Discussed Condition with: Patient Ren Gonzalez MD Nov 27, 2016 08:05
--- NOTE | 2016-11-27 09:13 | MB ---
cc: MING SPRAGUE M.D. DATE OF CONSULTATION 11/26/[address] Ren Gonzalez REASON FOR CONSULTATION Hematology consulted to render opinion regarding patient admitted with right lower extremity deep venous thrombosis. HISTORY OF PRESENT ILLNESS The patient is a 70-year-old female who presented to the hospital with a complaint of increased weakness and difficulty walking. She is a poor historian. She has not seen a primary physician for many years. Reportedly since her five years ago, she has increased depression and has not been eating well. She has significant weight loss, but according to the patient, she lost a lot of weight over the last two months. She also has been laying around in her chair and not very active. She finally went to see her doctor about two weeks ago. At that time, she was noted to have right lower extremity edema. She was told to go to the emergency room, but she refused. Her edema progressively worsened and family brought her to the emergency room. She was found to have a right lower extremity deep venous thrombosis. The patient denies any fever, chills, or night sweats. She had pain in the right lower extremity, but now has resolved. She denies any chest pain. She denies any shortness of breath or cough. She has no nausea, vomiting, diarrhea or abdominal pain. She denies change in bowel habit. She denies any dysuria or hematuria. Denies any bone pain. PAST MEDICAL HISTORY 1. Sciatic 2. Anorexia 3. Depression PAST SURGICAL HISTORY 1. Appendectomy 2. Cholecystectomy 3. Hysterectomy 3. Tonsillectomy FAMILY HISTORY No thromboembolic event. SOCIAL HISTORY Smoked a quarter pack a day for about 58 years. Denies any alcohol use. ALLERGIES CODEINE AND PENICILLIN CURRENT MEDICATIONS 1. Lexapro 2. Lovenox REVIEW OF SYSTEMS CONSTITUTIONAL: She lost more than 50 pounds. EYES: Denies any blurry vision or double vision. ENT: No mouth sores or voice changes. CARDIOVASCULAR: Denies chest pressure or palpitation. RESPIRATORY: Denied shortness of breath or cough. GI: As above. : No dysuria or hematuria. MUSCULOSKELETAL: Has sciatica. HEMATOLOGY: As above. ENDOCRINE: Negative. DERMATOLOGY: Negative. PSYCHIATRIC: Depression. NEUROLOGIC: Negative. PHYSICAL EXAMINATION VITAL SIGNS: Temperature 97.8, blood pressure is 133/81, O2 saturation 98% on room air. GENERAL: She is alert and x3 in no acute distress. HEENT: Atraumatic, normocephalic. Pupils equal, round and light. Extraocular muscles intact. No sclerae icterus. Oropharynx dry mucosa. No lesion or thrush. NECK: No thyromegaly. No palpable masses. LYMPHATICS: No palpable cervical, clavicular, axillary or inguinal lymph nodes. CARDIOVASCULAR: Regular S1, S2. No murmurs. LUNGS: Clear to auscultation without wheezing or rhonchi. ABDOMEN: Soft, nontender. Could not palpate the liver or spleen. EXTREMITIES: No cyanosis, no clubbing, has edema of the right lower extremities. No significant calf tenderness. SKIN: No rash or petechia. NEUROLOGIC: Nonfocal. BREASTS: Exam done with payroll and benefits assistant present showed bilateral breasts very nodular. I could not palpate any discrete mass. No palpable axillary adenopathy. LABORATORY DATA Reviewed ASSESSMENT 1. Right lower extremity deep venous thrombosis. It is difficult to get a clear history from the patient, but it sounded like she has not been feeling well lately and has not been very active. She has been laying around in her chair. I think the right lower extremity deep venous thrombosis may be provoked by immobility, however I am also concerned about her significant weight loss and anemia. She denies any GI bleed, but she has not had a colonoscopy. We will need to rule out occult malignancy. Her CT angiogram of the chest did not show any mass or adenopathy. I am going to get a CT of the abdomen and pelvis for further evaluation. I also told her she needs to follow up with her primary physician to get a mammogram and screening colonoscopy as an outpatient. She was started on Lovenox and has had a good response. Her right lower extremity pain has resolved. She has no pulmonary symptoms. She can be switched over to Pradaxa and follow up with her primary physician. If her insurance does not cover Pradaxa, then the other option is to bridge her to Coumadin. 2. Anemia. She presented with a hemoglobin of 11.1 and had trended down to 9.8. Her hemoglobin was normal a year ago. Proceed with anemia workup. 3. Anorexia and more than 50-pound weight loss. She was depressed after her five years ago. She has not been eating well and has lost some weight but she stated that she has lost more weight over the last two months. She denies any change in bowel habits, however given her symptom, I told her to follow up with gastroenterology for screening colonoscopy. 4. Depression. She was started on Lexapro. RECOMMENDATIONS 1. Get a CT of the abdomen and pelvis. 2. Anemia workup 3. Recommend switching her over to Pradaxa 150 mg twice a day. If her insurance does not cover Pradaxa, then she will need to be bridged to Coumadin and follow up with her primary Physician. 4. I also told to her to follow up with gastroenterology for screening colonoscopy. 5. She also will need a screening mammogram. Thank you Dr. Gonzalez for asking me to see this patient. MD KYLEE Lozano/MARY /5:31 PM /8:53 AM [facility]
[2016-11-27] MEDS: ESCITALOPRAM OXALATE 10 MG TAB PO SCH (10:31)
[2016-11-27] MEDS: SODIUM CHLORIDE 0.9% FLUSH 10 ML FLUSH IV FLUSH SCH ×2 (10:31→21:00)
[2016-11-27 12:00] VITALS: BP 119/63; PULSE 71; RESP 18; TEMP 97.3; O2SAT 98
[2016-11-27 16:00] VITALS: BP 122/67; PULSE 72; RESP 20; TEMP 97.2; O2SAT 99
--- NOTE | 2016-11-27 18:27 | PD.ONC.PN ---
Subjective Subjective Remarks Proud to be [employer] in [place]. She lives in trailer with son. Reports swelling in R leg for months prior to coming in. Denies any bleeding, improve with Lovenox. Discussed finding on CT, denies prior DVT or significant FH. Does not remember name of PCP but was giving me directions how to get to his office. Objective Data Date Time Temp Pulse Resp B/P Pulse Ox O2 Delivery O2 Flow Rate FiO2 11/27/16 16:00 97.2 72 20 122/67 99 11/27/16 12:00 97.3 71 18 119/63 98 11/27/16 08:00 96.9 73 18 118/68 98 11/27/16 00:00 97.4 73 16 143/62 98 11/26/16 20:00 97.8 78 18 125/64 99 11/27/16 11/27/16 11/27/16 07:00 15:00 23:00 Intake Total 0 ml 725 ml Balance 0 ml 725 ml Result Diagram: 11/25/16 0515 11/25/16 0515 Administered Medications Medications (Trade) Dose Ordered Sig/Cal Route PRN Reason Start Time Stop Time Status Last Admin Dose Admin Sodium Chloride (NS Flush) 2 ml BID IV FLUSH 11/24/16 09:00 11/27/16 10:31 Enoxaparin Sodium (Lovenox Inj) 77 mg Q12H SQ 11/24/16 02:30 11/27/16 17:13 Escitalopram Oxalate (Lexapro) 10 mg DAILY PO 11/25/16 09:00 11/27/16 10:31 Objective Remarks GENERAL: Elderly woman, looks older than stated age, thin, well-developed patient. SKIN: Warm and dry. Dry skin, senile purpura, bruise at injection site. HEAD: Normocephalic. EYES: No scleral icterus. No injection or drainage. NECK: Supple, trachea midline. No JVD or lymphadenopathy. LYMPHATIC: No adenopathy. CARDIOVASCULAR: Regular rate and rhythm without murmurs. RESPIRATORY: Breath sounds equal bilaterally. No accessory muscle use. GASTROINTESTINAL: Abdomen soft, non-tender, nondistended. EXTREMITIES: R leg swelling R leg extensive compare to L. L leg thin. MUSCULOSKELETAL: Adequate muscle tone. NEUROLOGICAL: No obvious focal deficit. Awake, alert. PSYCHIATRIC: Appropriate mood and affect; insight and judgment normal. Assessment/Plan Problem List: (1) DVT (deep venous thrombosis) Status: Acute Plan: Extensive R LE DVT, not clear how chronic. Concern for FVL in light of extensive clot without PE. No evidence of cancer on imaging study. Agree to need screening evaluation. Continue Lovenox for now 1mg/kg round to nearest vial size. Plan to convert to Pradaxa as recommended by Dr. Fierro, since renal function GFR> 30%, use standard dose. Consult case management for prior authorization, pt believe she has good insurance coverage. (2) B12 nutritional deficiency Status: Acute Plan: Low normal B12 with low folic acid. Concern for nutritional deficiency which may contribute to anemia. Unable to exclude iron deficiency. Plan to follow up with Dr. Fierro when DC. Assessment 70 y/o woman with newly diagnosed RLE extensive DVT of unknown chronicity. No evidence of PE. Continue anticoagulant therapy with Lovenox, switch to NOAC, Pradaxa when DC. Plan Cont Lovenox 60mg Q12H Monitor for bleeding. Monitor renal function. Case management to help with NOAC approval. DC planning, SHAKIRA w/ Dr. Fierro. Empirically replace B12 and folate. Check antiparietal cell and anti-intrinsic factor antibody. Problem Qualifiers (1) DVT (deep venous thrombosis): Qualified Code: I82.491 - Acute deep vein thrombosis (DVT) of other specified vein of right lower extremity Triny Cifuentes MD Nov 27, 2016 18:27
[2016-11-27 20:00] VITALS: BP 138/76; PULSE 73; RESP 16; TEMP 98.6; O2SAT 97
[2016-11-27] MEDS ORDERED: CYANOCOBALAMIN 1000 MCG/ML VIAL SQ ONE (20:00)
[2016-11-27] MEDS: FOLIC ACID 1 MG TAB PO SCH (21:51)
[2016-11-28] VITALS: BP 130/71; PULSE 79; RESP 18; TEMP 98.9; O2SAT 98
[2016-11-28] MEDS: ENOXAPARIN SODIUM 80 MG/0.8 ML SYRINGE SQ SCH ×2 (03:25→14:36)
[2016-11-28 08:00] VITALS: BP 127/78; PULSE 78; RESP 18; TEMP 96.7; O2SAT 98
[2016-11-28] MEDS: SODIUM CHLORIDE 0.9% FLUSH 10 ML FLUSH IV FLUSH SCH (09:51)
[2016-11-28] MEDS: FOLIC ACID 1 MG TAB PO SCH (09:52)
[2016-11-28] MEDS: ESCITALOPRAM OXALATE 10 MG TAB PO SCH (09:52)
--- NOTE | 2016-11-28 11:40 | HHI.PR ---
Subjective History of Present Illness Patient deny any complaints, Hematology input noted wants Paradexa to start. ok to dc home today. Review of Systems Constitutional Constitutional: Fatigue, Weakness Vitals/Results Intake & Output 11/27/16 11/27/16 11/28/16 15:00 23:00 07:00 Intake Total 725 ml Balance 725 ml Intake Oral 725 ml # Voids 3 2 2 # Bowel Movements 0 Vital Signs Vital Signs Date Time Temp Pulse Resp B/P Pulse Ox O2 Delivery O2 Flow Rate FiO2 11/28/16 08:00 96.7 78 18 127/78 98 11/28/16 04:00 11/28/16 00:00 98.9 79 18 130/71 98 11/27/16 20:00 98.6 73 16 138/76 97 11/27/16 16:00 97.2 72 20 122/67 99 11/27/16 12:00 97.3 71 18 119/63 98 CBC/BMP: 11/25/16 0515 11/25/16 0515 Physical Exam General General Appearance: No Acute Distress, Comfortable Eyes Eye Exam: Pupils Equal, Pupils Reactive Throat Throat Exam: Oral Mucosa [place] & Moist, Oral Pharynx Normal Neck Neck Exam: Neck Supple, Trachea Midline Pulmonary Resp Exam: Clear Bilaterally, Breath Sounds Equal, No Distress Cardiology CV Exam: Regular, Normal Sinus Rhythm Musculoskeletal MS Exam: Normal Tone Integumentary Skin Exam: Clear, Warm, Dry, Intact Extremeties Extremities Exam: No Edema Neurologic Neuro Exam: Alert, Awake, Oriented, Moving All Extremities VTE Prophylaxis VTE Prophylaxis Meds: Lovenox PUD Prophylasis PUD Prophylaxis: Protonix Assessment/Plan Assessment/Plan ASSESSMENT/PLAN This is a 70-year female who came to the ER diagnosed with dizziness leading to status post fall and mild head injury. CT brain does not show anything acute. We will monitor the patient neurologically. Extensive DVT in the right lower extremity involving the external iliac vein, common femoral vein and superficial femoral vein and a nonocclusive involved the popliteal vein and trifurcation vein. The patient is on Lovenox 77 mg subcutaneous twice a day. Hematology input noted. Further recommendation per hematology. Depression. the patient on Lexapro 10 mg p.o. daily. Smoking, advised to quit. DVT prophylaxis. The patient on Lovenox. GI prophylaxis, Protonix 40 mg p.o. daily. ok to dc home today. f/u with pcp/ hematology 1 week. Discussed Condition with: Patient Ren Gonzalez MD Nov 28, 2016 11:40
[2016-11-28] MEDS ORDERED: PRAD150C PO (11:42)
[2016-11-28 12:00] VITALS: BP 98/58; PULSE 69; RESP 18; TEMP 95.6; O2SAT 99
[2016-11-28] MEDS ORDERED: FOLI1TAB4 PO (13:37)
[2016-11-28] MEDS ORDERED: ESCI10TA PO (13:37)
--- NOTE | 2016-12-01 08:28 | PQ ---
Physician Query Response Document PATIENT: WENDI FLANAGAN : 1945 ADMIT DATE: 11/26/2016 8:33 AM DISCH DATE: 11/28/2016 5:21 PM RESPONDING PROVIDER #: EAhmed QUERY TEXT: Symptom Underlying Cause Please document the underlying diagnosis causing the patient?s documented symptom(s) or whether those are insignificant or unable to be further specified. dizziness w fall c/o Fatigue, Weakness ? Cardiac arrhythmia? Structural/valvular heart disease ? Cardiovascular medication? Cerebrovascular occlusion (partial or complete) ? Anemia / GI bleeding? Seizure Disorder ? AV Block ? Autonomic neuropathy ? Dehydration ? Vaso-vagal/vaso-depressor ? Hypoglycemia? Other specific cause ? Other Specify The patient's Clinical Indicators include: indicators hypotension on arrival 77/53 76/41 98/48 anorexia more 50lb weight loss t protein 6.3 alb 2.5 EKG Sinus rhythm Anemia 11.1 and tended down 9.8 IRON 28, TIBC 192 % SATURATION 14.6 Query created by: Sophie Rivera on 11/27/2016 9:55 AM RESPONSE TEXT: Dizziness secondary to stroke Electronically signed by: Ren Gonzalez MD 12/01/2016 8:24 AM
--- NOTE | 2016-12-02 08:38 | MD ---
cc: REN ENAMORADO MD ADMISSION DATE: 11/26/2016 DISCHARGE DATE: 11/28/2016 DISPOSITION Okay to discharge the patient home. CONDITION AT TIME OF DISCHARGE Satisfactory. ACTIVITY As tolerated. DIET Cardiac diet. ALLERGIES PENICILLIN. CODEINE. DISCHARGE MEDICATIONS Pradaxa 150 mg p.o. b.i.d. FOLLOWUP Patient advised to follow up with PCP and Oncology in one week. ADMITTING DIAGNOSIS 1. Dizziness leading to fall with mild head injury. CT brain did not show anything acute. 2. DVT in the right lower extremity. HOSPITAL COURSE The patient was given Lovenox during the hospital stay and at discharge the patient was started on Pradaxa 150 mg twice per day. The patient remained stable. No acute event happened. The patient was discharged in satisfactory condition. FOLLOWUP Patient advised to follow up PCP and Oncology. Further recommendation per Oncology. Ren Enamorado MD EA/CASSANDRA /1:37 PM /8:33 AM
[2016-12-03 23:55] LABS: INTRINSIC FACTOR BLOCKING AUTO POSITIVE (())
--- NOTE | 2016-12-10 08:22 | PQ ---
Physician Query Response Document PATIENT: WENDI FLANAGAN : 1945 ADMIT DATE: 11/26/2016 8:33 AM DISCH DATE: 11/28/2016 5:21 PM RESPONDING PROVIDER #: EAhmed QUERY TEXT: Clarification of Clinical Diagnostic Findings Please clarify documentation or clinical relevance for the clinical / diagnostic findings or whether those are insignificant or unable to be further specified. . IN YOUR CLINICAL OPINION, WERE YOU TREATING: CVA ? YES ? NO ? UNABLE TO DETERMINE The patient's Clinical Indicators include: Response to clarification of cause of dizziness your response was secondary to stroke Discharge assessment states dizziness leading to fall with mild head injury. CT brain does not show anything acute H Query created by: Sophie Rivera on 12/08/2016 9:20 AM RESPONSE TEXT: No CVA. Electronically signed by: Ren Gonzalez MD 12/10/2016 8:18 AM
== END 2016-11-28 17:21 | disposition home or self-care (01) | DRG 149 ==
LOC: PHED 22:13 → INTOOBSV 11-24 01:29 → PHEDA 11-24 01:29 → PHEDH 11-24 05:29 → PH3A 11-24 08:40 → OBSVTOIN 11-26 08:33
PROVIDERS: ADMIT Family Medicine; ATTEND Family Medicine
DX: R42 Dizziness and giddiness (principal); I82.411 Acute embolism and thrombosis of right femoral vein; E53.8 Deficiency of other specified B group vitamins; R63.0 Anorexia; F32.9 Major depressive disorder, single episode, unspecified; D64.9 Anemia, unspecified; S00.03XA Contusion of scalp, initial encounter; F17.210 Nicotine dependence, cigarettes, uncomplicated; I82.421 Acute embolism and thrombosis of right iliac vein; W19.XXXA Unspecified fall, initial encounter; R63.4 Abnormal weight loss; Z68.20 Body mass index [BMI] 20.0-20.9, adult; Z79.52 Long term (current) use of systemic steroids
CPT/HCPCS: 70450; 71275; 74177; 80048; 80053; 81001; 82550; 82607; 82728; 82746; 83516; 83540; 83550; 83615; 83735; 84484; 85025; 86340; 93005; 93971; 96360; 96372; G0378; G8987-GP; G8988-GP; J1650; J3420; J7030; Q9963; Q9967

== ENCOUNTER 2016-12-07 18:32 | Inpatient (IN) | payer MEDICARE, OTHER ==
[~2016-12-07] VITALS: Ht 154.9 cm; Wt 56.3 kg
[~2016-12-07 18:32] MED LIST changes: -CIPR-9 PO; +ESCI10TA PO; +EXCETAB2 PO; +FOLI1TAB4 PO; +PRAD150C PO; -PRED20 PO
[2016-12-07] MEDS ORDERED: SODIUM CHLORIDE 0.9% FLUSH 10 ML FLUSH IVF PRN (18:45)
[2016-12-07] MEDS ORDERED: ASPIRIN 81 MG CHEW TAB PO ONE (18:45)
[2016-12-07 18:47] VITALS: BP 127/54; PULSE 120; RESP 18; TEMP 97.7; O2SAT 98
--- NOTE | 2016-12-07 18:47 | PD ---
HPI Chief Complaint: left-sided chest pain Time Seen by Provider: 18:35 Travel History International Travel<30 days: No Contact w/Intl Traveler<30days: No History of Present Illness HPI This 70-year-old female with recently diagnosed DVT of the right lower extremity presents with left-sided chest pain and positional reproducible with some mild shortness of breath and tachycardia. Patient was evaluated by her primary care physician and had instructions to come right to the emergency department however the patient stated she wanted to come in the evening time. She went home when her son discovered this information brought her to the emergency department. Patient is very reluctant to give history otherwise heavily on her son to give history. Patient states she's been taking her Xarelto. She denies any extremity pain extremity swelling, pain nausea vomiting or diarrhea. She denies any falls denies any injury to chest wall. PFSH Past Medical History Cancer: No Cardiovascular Problems: No Diminished Hearing: Yes Endocrine: No Genitourinary: No Immune Disorder: No Musculoskeletal: Yes (sciatica) Neurologic: No Psychiatric: No Reproductive: Yes (HYSTERECTOMY) Respiratory: No Menopausal: Yes Past Surgical History Appendectomy: Yes Cholecystectomy: Yes Ear Surgery: No Endocrine Surgery: No Eye Surgery: No Gynecologic Surgery: Yes (HYSTERECTOMY) Hysterectomy: Yes Oral Surgery: No Tonsillectomy: Yes Social History Alcohol Use: No Tobacco Use: Yes (quit smoking yesterday) Substance Use: No Allergies-Medications (Allergen,Severity, Reaction): Coded Allergies: Codeine (Verified Allergy, Severe, Anaphylaxis-PT UNSURE OF ALLERGY, ) Penicillin (Verified Allergy, Intermediate, Anaphylaxis, 11/23/16) Reported Meds & Prescriptions Reported Meds & Active Scripts Active Folate (Folic Acid) 1 Mg Tab 1 Mg PO DAILY Escitalopram (Escitalopram Oxalate) 10 Mg Tab 10 Mg PO DAILY Reported Xarelto (Rivaroxaban) 15 Mg Tab 15 Mg PO Q12HR Megace Liq (Megestrol Acetate) 40 Mg/Ml Susp 400 Mg PO DAILY Excedrin Extra Strength (Yilhbzz-Limjtqkadsggi-Wvsbhelv) 250-250-65 Mg Tab Unknown Dose PO DAILY PRN Review of Systems Except as stated in HPI: all other systems reviewed are Neg Physical Exam Narrative GENERAL: Well-developed, thin but in no apparent distress. SKIN: Focused skin assessment warm/dry. HEAD: Atraumatic. Normocephalic. EYES: Pupils equal and round. No scleral icterus. No injection or drainage. ENT: No nasal bleeding or discharge. Mucous membranes pink and moist. NECK: Trachea midline. No JVD. CARDIOVASCULAR: Regular rhythm with tachycardia. No murmur appreciated. No chest wall tenderness. 2+ bilateral equal pulses in all 4 extremity's. RESPIRATORY: No accessory muscle use. Clear to auscultation. Breath sounds equal bilaterally. GASTROINTESTINAL: Abdomen soft, non-tender, nondistended. Hepatic and splenic margins not palpable. MUSCULOSKELETAL: No obvious deformities. No clubbing. No cyanosis. No edema. NEUROLOGICAL: Awake and alert. No obvious cranial nerve deficits. Motor grossly within normal limits. Normal speech. PSYCHIATRIC: Appropriate mood and affect; insight and judgment normal. Data Data Last Documented VS Vital Signs Date Time Temp Pulse Resp B/P Pulse Ox O2 Delivery O2 Flow Rate FiO2 12/07/16 19:17 99 Room Air 12/07/16 19:17 103 18 127/54 12/07/16 18:47 97.7 Orders Electrocardiogram (12/07/16 18:44) Ckmb (Isoenzyme) Profile (12/07/16 18:44) Complete Blood Count With Diff (12/07/16 18:44) Comprehensive Metabolic Panel (12/07/16 18:44) Magnesium (Mg) (12/07/16 18:44) Prothrombin Time / Inr (Pt) (12/07/16 18:44) Act Partial Throm Time (Ptt) (12/07/16 18:44) Troponin I (12/07/16 18:44) Chest, Single Ap (12/07/16 18:44) Ecg Monitoring (12/07/16 18:44) Iv Access Insert/Monitor (12/07/16 18:44) Oximetry (12/07/16 18:44) Oxygen Administration (12/07/16 18:44) Aspirin Chew (Aspirin Chew) (12/07/16 18:45) Sodium Chloride 0.9% Flush (Ns Flush) (12/07/16 18:45) Ct Pulmonary Angiogram (12/07/16 18:44) Acetaminophen (Tylenol) (12/07/16 19:00) Sodium Chlorid 0.9% 500 Ml Inj (Ns 500 M (12/07/16 20:00) Iohexol 350 Inj (Omnipaque 350 Inj) (12/07/16 20:01) Admit Order (Ed Use Only) (12/07/16 ) Labs Laboratory Tests Test 12/07/16 18:45 White Blood Count 17.6 TH/MM3 Red Blood Count 4.64 MIL/MM3 Hemoglobin 12.7 GM/DL Hematocrit 38.8 % Mean Corpuscular Volume 83.6 FL Mean Corpuscular Hemoglobin 27.5 PG Mean Corpuscular Hemoglobin 32.8 % Concent Red Cell Distribution Width 16.8 % Platelet Count 728 TH/MM3 Mean Platelet Volume 6.4 FL Neutrophils (%) (Auto) 92.0 % Lymphocytes (%) (Auto) 3.7 % Monocytes (%) (Auto) 1.3 % Eosinophils (%) (Auto) 0.1 % Basophils (%) (Auto) 2.9 % Neutrophils # (Auto) 16.2 TH/MM3 Lymphocytes # (Auto) 0.7 TH/MM3 Monocytes # (Auto) 0.2 TH/MM3 Eosinophils # (Auto) 0.0 TH/MM3 Basophils # (Auto) 0.5 TH/MM3 CBC Comment AUTO DIFF Differential Comment AUTO DIFF CONFIRMED Platelet Estimate HIGH Platelet Morphology Comment CLUMPED Red Cell Morphology Comment NORMAL Prothrombin Time 29.0 SEC Prothromb Time International 2.5 RATIO Ratio Activated Partial 54.8 SEC Thromboplast Time Sodium Level 136 MEQ/L Potassium Level 3.1 MEQ/L Chloride Level 101 MEQ/L Carbon Dioxide Level 20.9 MEQ/L Anion Gap 14 MEQ/L Blood Urea Nitrogen 22 MG/DL Creatinine 0.89 MG/DL Estimat Glomerular Filtration 63 ML/MIN Rate Random Glucose 143 MG/DL Calcium Level 8.3 MG/DL Magnesium Level 2.5 MG/DL Total Bilirubin 0.8 MG/DL Aspartate Amino Transf 35 U/L (AST/SGOT) Alanine Aminotransferase 34 U/L (ALT/SGPT) Alkaline Phosphatase 154 U/L Total Creatine Kinase 10 U/L Troponin I LESS THAN 0.02 NG/ML Total Protein 7.1 GM/DL Albumin 2.2 GM/DL [facility] Medical Decision Making Medical Screen Exam Complete: Yes Emergency Medical Condition: Yes Interpretation(s) EKG sinus tachycardia rate of 101, intervals otherwise within normal limits, borderline left axis deviation, T-wave flattening nearly global. This nonspecific change. Comparison to 11/23/2016, global T-wave flattening is new. Differential Diagnosis PE, failure to thrive, malnourishment, CHF, AMI, Narrative Course Patient was roomed in the emergency department, she appears well but is tachycardic. I agree that she does need exclusion of PE given her recent diagnosis of DVT. Last 24 hours Impressions Chest X-Ray [id number]/07/[id number] Signed Impressions: Service Date/Time: Wednesday, December 07, 2016 18:56 - CONCLUSION: No evidence of acute cardiopulmonary disease. iNthin Hurley MD CT Angiography [id number] Signed Impressions: Service Date/Time: Wednesday, December 07, 2016 19:40 - CONCLUSION: 1. No pulmonary embolus. 2. Limited evaluation otherwise but a fracture has clearly developed near the costochondral junction of the left fifth rib and surrounded by a large collection of fluid in the chest and upper abdominal wall, all new. A traumatic fracture with hematoma/seroma is felt most likely. I don't see a discrete mass or other clear etiology for any pathologic fracture. I also don't clearly see evidence of active bleeding. 3. Small, dependently layering and fairly low attenuation left pleural effusion now demonstrated. Nithin Hurley MD CT results were discussed with Dr. Hurley who states that the fluid that in the pleural cavity is most likely did not blood as it attenuates differently. Patient's labs do show an elevated white blood cell count 17.6 with left shift and 92. Chemistry shows some mild hypokalemia mild metabolic acidosis with a normal anion gap. INR of 2.5, PTT of 54.8. Had an extensive conversation with the patient's son who states the patient has been passively suicidal ever since her in 2010. States that she has not been eating well and this is cause for concern. They arrived with a prescription from Dr. Gonzalez states the patient should be worked up for PE and states that she has failure to thrive. The patient states that she feels fine and is not even having any chest pain however her tachycardia would suggest that she is. Her son and I have had a discussion informed the patient that they are very concerned with her at home because she is not eating anything that ultimately she may need to see a psychiatrist as well. They have been attempting to find outpatient support for a Haynes act on her period her suicidality is quite passive at this time and she does not meet Haynes act criteria. After we have discussed at length the patient does agree to be admitted for observation of her chest wall hematoma. The patient was discussed with Nithin Dale and will be admitted to Dr. Ren Gonzalez. Diagnosis Primary Impression: Chest wall hematoma Qualified Code: S20.212A - Chest wall hematoma, left, initial encounter Additional Impressions: Rib fracture Failure to thrive in adult Depression Admitting Information Admitting Physician Requests: Observation Condition: Stable Maverick Galindo MD Dec 07, 2016 18:47
[2016-12-07] MEDS ORDERED: ACETAMINOPHEN 325 MG TAB PO ONE (19:00)
[2016-12-07 19:01] LABS: AUTOMATED NEUTROPHIL # 16.2 TH/MM3 (1.8-7.7); BASOPHIL # 0.5 TH/MM3 (0-0.2); BASOPHIL % 2.9 % (0.0-2.0); EOSINOPHIL % 0.1 % (0.0-4.0); HEMATOCRIT 38.8 % (35.0-46.0); LYMPH % 3.7 % (9.0-44.0); LYMPHOCYTE # 0.7 TH/MM3 (1.0-4.8); MEAN CELL VOLUME 83.6 FL (80.0-100.0); MEAN CORPUSCULAR HEMOGLOBIN 27.5 PG (27.0-34.0); MEAN CORPUSCULAR HGB CONC 32.8 % (32.0-36.0); MONO % 1.3 % (0.0-8.0); PLATELET COUNT 728 TH/MM3 (150-450); RED BLOOD COUNT 4.64 MIL/MM3 (4.00-5.30); RED CELL DISTRIBUTION WIDTH 16.8 % (11.6-17.2); WHITE BLOOD COUNT 17.6 TH/MM3 (4.0-11.0)
[2016-12-07] MEDS ORDERED: MEGE40S PO (19:01)
[2016-12-07] MEDS ORDERED: XARE15TA PO (19:01)
[2016-12-07 19:05] LABS: HEMO FLAGS AUTO DIFF
[2016-12-07 19:14] LABS: CHLORIDE 101 MEQ/L (98-107); POTASSIUM 3.1 MEQ/L (3.5-5.1); SODIUM (NA) 136 MEQ/L (136-145)
[2016-12-07 19:17] VITALS: BP 127/54; PULSE 103; RESP 18; O2SAT 99
[2016-12-07 19:18] LABS: ANION GAP 14 MEQ/L (5-15); BICARBONATE 20.9 MEQ/L (21.0-32.0); BLOOD UREA NITROGEN 22 MG/DL (7-18); MAGNESIUM 2.5 MG/DL (1.5-2.5)
[2016-12-07 19:20] LABS: APTT (PATIENT) 54.8 SEC (24.3-30.1); INTERNATIONAL NORMALIZED RATIO 2.5 RATIO
[2016-12-07 19:21] LABS: ALT (GPT) 34 U/L (10-53); AST (GOT) 35 U/L (15-37); GLOMERULAR FILTRATION RATE 63 ML/MIN (>89)
[2016-12-07 19:22] LABS: TOTAL BILIRUBIN ADULT 0.8 MG/DL (0.2-1.0)
--- NOTE | 2016-12-07 19:22 | RADHPO ---
EXAM DATE/TIME: 12/07/2016 18:56 [facility] COMPARISON: No previous studies available for comparison. INDICATIONS : Shortness of breath. MEDICAL HISTORY : None. SURGICAL HISTORY : None. ENCOUNTER: Initial ACUITY: 1 day PAIN SCORE: 0/10 LOCATION: Bilateral chest FINDINGS: A single view of the chest demonstrates the lungs to be symmetrically aerated without evidence of mas s, infiltrate or effusion. The cardiomediastinal contours are unremarkable. Osseous structures are intact. CONCLUSION: No evidence of acute cardiopulmonary disease. Nithin Hurley MD on December 07, 2016 at 19:21 Board Certified Radiologist. This report was verified electronically.
[2016-12-07 19:24] LABS: ALKALINE PHOSPHATASE 154 U/L (45-117)
[2016-12-07 19:35] LABS: PLATELET ESTIMATE SMEAR HIGH (NORMAL); PLATELET MORPHOLOGY CLUMPED (NORMAL); SCAN/DIFF AUTO DIFF CONFIRMED
[2016-12-07 19:53] LABS: CREATINE KINASE 10 U/L (26-192)
[2016-12-07] MEDS ORDERED: SODIUM CHLORID 0.9% 500 ML INJ 500 ML IV ONE (20:00)
[2016-12-07] MEDS ORDERED: IOHEXOL 350 MG/ML 10 ML VIAL (for RAD DIAG) IV ONE (20:01)
--- NOTE | 2016-12-07 20:23 | RADHPO ---
EXAM DATE/TIME: 12/07/2016 19:40 [facility] COMPARISON: CT PULMONARY ANGIOGRAM, November 24, 2016, 0:31. INDICATIONS : Left chest pain. Shortness of breath. History of left lower extremity deep vein thrombosis. IV CONTRAST: 75 cc Omnipaque 350 (iohexol) IV RADIATION DOSE: 6.55 CTDIvol (mGy) MEDICAL HISTORY : Deep venous thrombosis. SURGICAL HISTORY : Appendectomy. Cholecystectomy.Hysterectomy. ENCOUNTER: Initial ACUITY: 1 day PAIN SCALE: 2/10 LOCATION: Left chest TECHNIQUE: Volumetric scanning of the chest was performed using a pulmonary embolism protocol MIP images were re constructed. Using automated exposure control and adjustment of the mA and/or kV according to patien t size, radiation dose was kept as low as reasonably achievable to obtain optimal diagnostic quality images. FINDINGS: There remains no evidence of pulmonary embolus. A small left dependently layering pleural effusion flores s developed. A fracture is now seen near the costochondral junction anteriorly of the left fifth rib. There is an irregular, large fluid collection around the fracture and extending into the left anterior chest and upper abdominal wall, roughly 4.1 x 12.4 by at least 10 cm in size. All of this is new. No infiltrate. Heart size normal. Coronary artery calcification noted, most conspicuous at the left a nterior descending. CONCLUSION: 1. No pulmonary embolus. 2. Limited evaluation otherwise but a fracture has clearly developed near the costochondral junction of the left fifth rib and surrounded by a large collection of fluid in the chest and upper abdominal wall, all new. A traumatic fracture with hematoma/seroma is felt most likely. I don't see a discrete mass or other clear etiology for any pathologic fracture. I also don't clearly see evidence of active bleeding. 3. Small, dependently layering and fairly low attenuation left pleural effusion now demonstrated. Nithin Hurley MD on December 07, 2016 at 20:11 Board Certified Radiologist. This report was verified electronically.
[2016-12-07 22:00] VITALS: BP 114/57
[2016-12-07] MEDS ORDERED: ONDANSETRON HCL 4 MG/2 ML VIAL IVP PRN (23:15)
[2016-12-07] MEDS ORDERED: SODIUM CHLORIDE 0.9% FLUSH 10 ML FLUSH IV FLUSH PRN (23:15)
[2016-12-07] MEDS ORDERED: NALOXONE HCL 0.4 MG/ML AMP IV PRN (23:15)
[2016-12-07] MEDS ORDERED: SENNOSIDES 8.6 MG TAB PO PRN (23:15)
[2016-12-07] MEDS ORDERED: BISACODYL 10 MG SUPP RECTAL PRN (23:15)
[2016-12-08] VITALS: BP 142/73; PULSE 69; PULSE 75; RESP 18; TEMP 97.4; O2SAT 99
[2016-12-08 04:00] VITALS: BP 146/73; PULSE 73; PULSE 79; RESP 18; TEMP 98.1; O2SAT 98
[2016-12-08 06:00] VITALS: PULSE 78
--- NOTE | 2016-12-08 06:56 | EKG ---
Date Performed: 12/07/2016 Time Performed: 19:02:24 PTAGE: 70 years EKG: Sinus tachycardia with sinus arrhythmia Possible left atrial abnormality Anterior T wave ch anges are nonspecific Borderline ECG COMPARED TO PRIOR ELECTROCARDIOGRAM, Rate has increased and T wa ve changes are slightly more prominent. PREVIOUS TRACING : 11/23/2016 22.37 DOCTOR: Miguel Castillo Interpretating Date/Time 12/08/2016 06:55:24
[2016-12-08 06:58] LABS: AUTOMATED NEUTROPHIL # 11.6 TH/MM3 (1.8-7.7); BASOPHIL % 0.1 % (0.0-2.0); EOSINOPHIL # 0.1 TH/MM3 (0-0.4); EOSINOPHIL % 0.6 % (0.0-4.0); HEMATOCRIT 33.8 % (35.0-46.0); LYMPH % 7.9 % (9.0-44.0); LYMPHOCYTE # 1.1 TH/MM3 (1.0-4.8); MEAN CELL VOLUME 83.3 FL (80.0-100.0); MEAN CORPUSCULAR HEMOGLOBIN 27.3 PG (27.0-34.0); MEAN CORPUSCULAR HGB CONC 32.7 % (32.0-36.0); NEUT % 86.4 % (16.0-70.0); PLATELET COUNT 657 TH/MM3 (150-450); RED BLOOD COUNT 4.06 MIL/MM3 (4.00-5.30); RED CELL DISTRIBUTION WIDTH 16.9 % (11.6-17.2); WHITE BLOOD COUNT 13.5 TH/MM3 (4.0-11.0)
[2016-12-08 07:03] LABS: HEMO FLAGS DIFF FINAL
[2016-12-08 07:04] LABS: PROTHROMBIN TIME - PATIENT 23.2 SEC (9.8-11.6)
[2016-12-08 07:36] LABS: ALKALINE PHOSPHATASE 124 U/L (45-117); ALT (GPT) 27 U/L (10-53); ANION GAP 13 MEQ/L (5-15); AST (GOT) 26 U/L (15-37); BICARBONATE 23.4 MEQ/L (21.0-32.0); BLOOD UREA NITROGEN 21 MG/DL (7-18); CHLORIDE 103 MEQ/L (98-107); GLOMERULAR FILTRATION RATE 85 ML/MIN (>89); SODIUM (NA) 139 MEQ/L (136-145); TOTAL BILIRUBIN ADULT 0.6 MG/DL (0.2-1.0)
[2016-12-08 07:41] LABS: POTASSIUM 2.8 MEQ/L (3.5-5.1)
[2016-12-08 08:00] VITALS: BP 142/79; PULSE 98; RESP 20; TEMP 96.5; O2SAT 99
[2016-12-08 08:31] LABS: MAGNESIUM 2.4 MG/DL (1.5-2.5)
[2016-12-08] MEDS: POTASSIUM CHLOR 20 MEQ PREMIX 100 ML IV SCH ×3 (08:42→19:20)
[2016-12-08] MEDS: SODIUM CHLORIDE 0.9% FLUSH 10 ML FLUSH IV FLUSH SCH ×2 (08:42→21:00)
--- NOTE | 2016-12-08 10:41 | MH ---
cc: REN ENAMORADO MD DATE OF ADMISSION 12/07/2016 CHIEF COMPLAINT Confusion, left-sided chest pain, failure to thrive. HISTORY OF PRESENT ILLNESS This is a 70-year female with past medical-surgical history significant for recently diagnosed DVT of the right lower extremity, history of diminished hearing, history of possible dementia, history of hysterectomy, sciatica, history of appendectomy and cholecystectomy, a chronic smoker. She came to my office yesterday with her son and had an episode of chest pain. She was recently diagnosed with DVT which extends to the inferior vena cava and also complaining of left-sided chest or breast area pain. She also was diagnosed with a breast nodule and we ordered the ultrasound of the breast as well as mammogram of the breast. She is not eating. She was started on Megace and she has still not been eating. She has some palpitation and some shortness of breath yesterday when she was treated in the office and I advised her to go to the ER. The patient refused to go to the ER, but the family member, her son, took the patient to the ER and she was admitted over there. The patient is a poor historian. When I went to examine the patient, I asked her who I was, but she did not recognize me and I asked her where she was and she said she was at home and she is confused too. She was recently started on Xarelto 15 mg twice a day. There is no head injury, fall or any other trauma. Other than that, nothing significant. PAST MEDICAL AND SURGICAL HISTORY As dictated above. SOCIAL HISTORY Denies is a smoker. Denies alcohol abuse. Denies any drug abuse. Lives at home with son. FAMILY HISTORY Heart problems, Alzheimer's disease, cancer. ALLERGIES CODEINE AND PENICILLIN MEDICATIONS 1. Megace 40 mg/10 mL twice a day 2. Xarelto 15 mg twice a day 3. Folate 1 mg p.o. daily REVIEW OF SYSTEMS Unable to obtain because the patient is confused and history is also limited because the patient is confused. PHYSICAL EXAMINATION This is a 70-year female laying on the bed not in acute distress. VITAL SIGNS: Temperature 96.5, heart rate 98, respiration 20, blood pressure 142/79, O2 saturation 99% room air. HEENT: Normocephalic, atraumatic. EOMI. PERRLA. Oral mucosa moist. NECK: Supple. No visible thyromegaly or neck mass. Trachea is central. CARDIOVASCULAR: Regular rate and rhythm. RESPIRATORY: Clear to auscultation bilaterally. ABDOMEN: Soft, nontender. Bowel sounds audible. EXTREMITIES: No cyanosis or clubbing. Full range of motion of all extremities. NEUROLOGIC: Awake and alert, but the patient is confused. Moving all extremities. Speech is normal. SKIN: Warm and dry. PSYCH: The patient is cooperative. LABORATORY DATA Include CBC showed WBC count was 17.6 now it is 13.5, hemoglobin is 11.1 low, hematocrit 33.8 low, platelet count 657 high. BMP shows sodium 139, potassium is 2.8 low, BUN 21 high, GFR is 85 low, calcium 8.2 low, alkaline phosphatase 124 high, creatinine kinase 10 low, troponin-I 0.02, total protein 6.21 low, albumen 2.0 low. PT 23.2, INR 2.0. IMAGING A chest x-ray was done shows no evidence of acute cardiopulmonary disease. CT angiogram done shows no pulmonary embolism. Limited evaluation otherwise, but a fracture has clearly developed near the costochondral junction of the left fifth rib and surrounded by a large collection of fluid in the chest and upper abdominal wall all new. A traumatic fracture with hematoma/seroma is most likely. I do not see any discrete mass or other clear etiology for any pathological fracture. I do not see any clear evidence of active bleeding per radiology small dependently layering and fairly low attenuation of the left pleural effusion now demonstrated. ASSESSMENT/PLAN 1. This is a 70-year female who came to the ER diagnosed with altered mental status, unknown etiology. I will check a CT scan of the brain without contrast and metabolic workup consulted neurology. 2. Possible dementia. Further recommendation per neurology. 3. Failure to thrive. The patient is on Megace. We will Monitor. 4. History of right lower extremity DVT. The patient is on Xarelto 50 mg twice a day. We will continue. 5. Hypokalemia. We will replace potassium and check magnesium level too. 6. Chest pain, left-sided. Troponin less than 0.02 with Low creatinine kinase, atypical chest pain. 7. Left fifth rib costochondral fracture with a large collection of fluid in the chest and upper abdominal wall. We will monitor which is the most likely cause of the left-sided chest pain. I will consult in general surgery. 8. The patient is on a blood thinner, Xarelto. Very sticky situation with DVT and a possible bleed. We will observe closely. 9. Thrombocytosis, we will monitor. 10. Leukocytosis. We will monitor. 11. Hearing problem. 12. History of smoking. Advised to quit. 13. Depression. Continue with Lexapro 10 mg p.o. daily. 14. DVT prophylaxis. The patient is on Xarelto. 15. GI prophylaxis, Protonix 40 mg p.o. daily. We are going to manage the patient on a daily basis and make recommendations on a daily basis. Ren Enamorado MD EA/MARY /9:21 AM /10:10 AM
[2016-12-08 11:10] LABS: GLUCOSE,URINE NEG (NEG); KETONE, URINE TRACE mg/dL (NEG); NITRITE,URINE NEG (NEG); PH, URINE 6.5 (5.0-8.5)
[2016-12-08 11:23] LABS: BLOOD, URINE MOD (NEG)
[2016-12-08 11:24] LABS: METHOD OF COLLECTION CLEAN CATCH; URINE COLOR DARK-YELLOW (YELLW/STRAW)
[2016-12-08 11:25] LABS: COMMENT (UR) CULT NOT INDICATED; CULTURE IF INDICATED CULT NOT INDICATED; RBC, URINE 0-3 /hpf (0-3); SQUAMOUS EPITHELIAL CELL URINE 0-5 /hpf (0-5); WBC, URINE 0-2 /hpf (0-5)
[2016-12-08] MEDS: MEGESTROL ACETATE SUSP 400 MG/10 ML CUP PO SCH (12:25)
[2016-12-08] MEDS: MEMANTINE HCL 5 MG TAB PO SCH (12:26)
[2016-12-08] MEDS: PANTOPRAZOLE SOD 40 MG DELAYED RELEASE TAB PO SCH (12:26)
[2016-12-08] MEDS: FOLIC ACID 1 MG TAB PO SCH (12:26)
[2016-12-08] MEDS: ESCITALOPRAM OXALATE 10 MG TAB PO SCH (12:26)
[2016-12-08] MEDS: RIVAROXABAN 15 MG TAB PO SCH ×2 (12:26→22:13)
--- NOTE | 2016-12-08 13:09 | MB ---
cc: KRISTINE CARIG M.D. DATE OF CONSULTATION 12/08/2016 DATE OF 1945 REASON FOR CONSULTATION Change in mental status. HISTORY This is a 70-year-old woman with a history of recent DVT right lower extremity on Xarelto now. A history of decreased memory for at least six months, sciatic, decreased hearing, surgical history of appendectomy and cholecystectomy who came in with her son yesterday apparently to her primary care's office with some chest pain. Diagnosed with DVT and DVT was extending to the inferior vena cava, some left-sided. She was admitted to the hospital for further evaluation. She has been placed on Megace for failure to thrive. She is not eating. Her son states that she has been more forgetful over the last six months. She used to have a route with the [employer] and actually called them saying she did not know where to go. She gave up that route, started to have more issues with memory and not wanting to eat and not participate in any of her usual activities. She lives with her family for over a year now. Prior to that, she was very active. Her six years ago and she has been saying that she wants to go see her . PAST MEDICAL HISTORY As stated. SOCIAL HISTORY Does not smoke. Does not drink. No drugs. Lives with her son. FAMILY HISTORY Heart disease, Alzheimer's and cancer. ALLERGIES CODEINE AND PENICILLIN. MEDICATIONS 1. Megace 2. Xarelto 3. Folate 4. She is also on antidepressant her son states, but does not know what type. PHYSICAL EXAM On exam vitals temperature is 96.5, pulse 98, respiratory rate 20, blood pressure 142/79, sating at 99%. NECK: Supple. I do not hear any bruits. HEART: Regular. NEUROLOGIC: She is awake and alert. She knows she is at [facility]. She knows her [id number]. She knows her date of , but not her age. She is not able to tell me the month or the year. She knows she lives in [place]. She knows this is [facility]. Her speech otherwise is fluent. Pupils reactive. Face symmetrical. Tongue midline. Motor, she seems to move everything equally. No drift or leg lag. Toes are downgoing. Reflexes are 1+. Cerebellar is normal. Gait is withheld at this time. LABS Reviewed. Yesterday's white count was 17.6, today is 13.5, her platelets are 657,000, elevated. Coag panel PT 23.2, INR is 2, PTT 54.8. Chemistries, potassium yesterday 3.1, today 2.8, GFR 85, alk phos 124, protein and albumin 2.0. Urine, moderate blood, trace ketones, 30 protein, culture is not indicated. IMAGING STUDIES Her last head CT showed a normal exam on November 24. CT angiography showed no PE limited evaluation but a fracture developed at the costochondral junction of the left fifth rib surrounded by a large collection of fluid in the chest and upper abdominal wall which was new possible. Possible hematoma, seroma felt most likely. IMPRESSION A 70-year-old woman with: 1. Mostly likely dementia. 2. Depression 3. Failure thrive 4. History DVT right lower extremity RECOMMENDATIONS From neurologic perspective, get a follow-up CT. If there is any change certainly an MRI would be indicated at that point in time. I will start her on some Namenda. For her dementia, get a B12, TSH, ammonia level as you are doing. We will get an EEG that I already have ordered. As far as her depression, I will defer to psychiatry, but consider Remeron may help her depression, also may increase her appetite. Seems like the Megace is not working. We will continue current recommendations. Further will be made as needed. Please call with any questions. MD MAY Stearns/MARY /11:40 AM /1:00 PM
--- NOTE | 2016-12-08 13:44 | RADHPO ---
EXAM DATE/TIME: 12/08/2016 11:34 [place] COMPARISON: CT BRAIN W/O CONTRAST, November 24, 2016, 0:26. INDICATIONS : Altered mental status. RADIATION DOSE: 48.75 CTDIvol (mGy) MEDICAL HISTORY : Deep venous thrombosis. Anticoagulant therapy. SURGICAL HISTORY : Tonsillectomy. Hysterectomy.Appendectomy.Cholecystectomy. ENCOUNTER: Initial ACUITY: 1 day PAIN SCALE: 0/10 LOCATION: cranial TECHNIQUE: Multiple contiguous axial images were obtained of the head. Using automated exposure control and adj ustment of the mA and/or kV according to patient size, radiation dose was kept as low as reasonably a chievable to obtain optimal diagnostic quality images. FINDINGS: CEREBRUM: The ventricles are normal for age. No evidence of midline shift, mass lesion, hemorrhage or acute in farction. No extra-axial fluid collections are seen. POSTERIOR FOSSA: The cerebellum and brainstem are intact. The 4th ventricle is midline. The cerebellopontine angle i s unremarkable. EXTRACRANIAL: The visualized portion of the orbits is intact. SKULL: There is focal thickening of the scalp high convexity midline frontal region, best seen on axial imag e #25. No radiopaque foreign bodies. The calvaria is intact. No evidence of skull fracture. CONCLUSION: 1. No acute findings in the brain. 2. Focal scalp thickening high midline frontal region. No skull fracture seen. Ck Power MD on December 08, 2016 at 13:40 Board Certified Radiologist. This report was verified electronically.
[2016-12-08 16:00] VITALS: BP 142/77; PULSE 89; RESP 16; TEMP 96.2; O2SAT 100
[2016-12-08 16:40] LABS: POTASSIUM 3.2 MEQ/L (3.5-5.1)
[2016-12-08 16:42] LABS: MAGNESIUM 2.5 MG/DL (1.5-2.5)
[2016-12-08 20:00] VITALS: BP 116/78; PULSE 68; RESP 18; TEMP 97.1; O2SAT 100
[2016-12-08 20:22] LABS: FREE T4 1.03 NG/DL (0.76-1.46)
--- NOTE | 2016-12-08 22:31 | MG ---
cc: KIRSTIE RHODES M.D. Sex: F REFERRING PHYSICIAN: Dr. Sanchez DATE OF STUDY: 12/08/2016 DESCRIPTION: An EEG was obtained on this 70 year-old patient being evaluate for neurologic change. MEDICATIONS Includes: Xarelto. Namenda. The patient is described as awake during the study. Hyperventilation was not performed. There is fairly prominent theta and delta rhythms bilaterally and the lack of alpha activity. There are beta rhythms diffusely. There are no paroxysmal discharge. Photic stimulation disclosed no significant change. INTERPRETATION Abnormal EEG because of bihemisphere slowing, compatible with either bilateral structural abnormalities or moderately severe diffuse disturbance of cerebral function. No epileptiform features present. Kirstie Rhodes MD [facility] /9:33 PM /10:28 PM
[2016-12-09 00:51] VITALS: BP 138/85; PULSE 87; RESP 18; TEMP 97.6; O2SAT 100
[2016-12-09 06:41] LABS: AUTOMATED NEUTROPHIL # 20.2 TH/MM3 (1.8-7.7); BASOPHIL % 0.2 % (0.0-2.0); EOSINOPHIL % 0.1 % (0.0-4.0); LYMPH % 2.9 % (9.0-44.0); LYMPHOCYTE # 0.6 TH/MM3 (1.0-4.8); MEAN CELL VOLUME 82.7 FL (80.0-100.0); MEAN CORPUSCULAR HEMOGLOBIN 27.8 PG (27.0-34.0); MEAN CORPUSCULAR HGB CONC 33.6 % (32.0-36.0); MONO % 3.5 % (0.0-8.0); NEUT % 93.3 % (16.0-70.0); PLATELET COUNT 613 TH/MM3 (150-450); RED BLOOD COUNT 4.47 MIL/MM3 (4.00-5.30); RED CELL DISTRIBUTION WIDTH 17.2 % (11.6-17.2); WHITE BLOOD COUNT 21.6 TH/MM3 (4.0-11.0)
[2016-12-09 06:48] LABS: HEMO FLAGS DIFF FINAL
[2016-12-09 07:02] LABS: ALKALINE PHOSPHATASE 137 U/L (45-117); ALT (GPT) 22 U/L (10-53); ANION GAP 14 MEQ/L (5-15); AST (GOT) 15 U/L (15-37); BICARBONATE 19.5 MEQ/L (21.0-32.0); BLOOD UREA NITROGEN 23 MG/DL (7-18); CHLORIDE 107 MEQ/L (98-107); GLOMERULAR FILTRATION RATE 82 ML/MIN (>89); POTASSIUM 4.1 MEQ/L (3.5-5.1); SODIUM (NA) 140 MEQ/L (136-145); TOTAL BILIRUBIN ADULT 0.8 MG/DL (0.2-1.0)
[2016-12-09 08:00] VITALS: BP 138/85; PULSE 102; RESP 18; TEMP 97.8; O2SAT 100
--- NOTE | 2016-12-09 08:22 | HHI.PR ---
Subjective History of Present Illness Patient confused no acute issue Neurology and Psych input noted have dementia. high WBC count no fever no pneumonia on CT chest and Urine did not have UTI...will monitor and check trend and consult infectious disease if getting worse. Review of Systems Constitutional Constitutional Remarks unreliable ROS. Vitals/Results Intake & Output 12/08/16 12/08/16 12/09/16 15:00 23:00 07:00 Intake Total 812 ml 240 ml Output Total 200 ml Balance 612 ml 240 ml Intake Oral 330 ml 240 ml IV Total 482 ml Output Urine Total 200 ml # Voids 1 1 # Bowel Movements 0 Vital Signs Vital Signs Date Time Temp Pulse Resp B/P Pulse Ox O2 Delivery O2 Flow Rate FiO2 12/09/16 00:51 97.6 87 18 138/85 100 12/08/16 20:00 97.1 68 18 116/78 100 12/08/16 16:00 96.2 89 16 142/77 100 CBC/BMP: 12/09/16 0607 12/09/16 0607 Lab Results Laboratory Tests Test 12/08/16 12/08/16 12/08/16 12/09/16 11:00 12:45 16:17 06:07 Urine Collection Type CLEAN CATCH Urine Color DARK-YELLOW Urine Turbidity CLEAR Urine pH 6.5 Urine Specific [place] GREATER THAN 1.035 Urine Protein 30 mg/dL Urine Glucose (UA) NEG mg/dL Urine Ketones TRACE mg/dL Urine Occult Blood MOD Urine Nitrite NEG Urine Bilirubin NEG Urine Leukocyte Esterase NEG Urine RBC 0-3 /hpf Urine WBC 0-2 /hpf Urine Squamous Epithelial 0-5 /hpf Cells Urine Amorphous Sediment FEW Microscopic Urinalysis Comment CULT NOT INDICATED Ammonia 19 MCMOL/L Potassium Level 3.2 MEQ/L 4.1 MEQ/L Phosphorus Level 2.5 MG/DL Magnesium Level 2.5 MG/DL Vitamin B12 Level 562 PG/ML Folate 18.1 NG/ML Free Thyroxine 1.03 NG/DL Thyroid Stimulating Hormone 3.210 uIU/ML 3rd Gen White Blood Count 21.6 TH/MM3 Red Blood Count 4.47 MIL/MM3 Hemoglobin 12.4 GM/DL Hematocrit 37.0 % Mean Corpuscular Volume 82.7 FL Mean Corpuscular Hemoglobin 27.8 PG Mean Corpuscular Hemoglobin 33.6 % Concent Red Cell Distribution Width 17.2 % Platelet Count 613 TH/MM3 Mean Platelet Volume 6.5 FL Neutrophils (%) (Auto) 93.3 % Lymphocytes (%) (Auto) 2.9 % Monocytes (%) (Auto) 3.5 % Eosinophils (%) (Auto) 0.1 % Basophils (%) (Auto) 0.2 % Neutrophils # (Auto) 20.2 TH/MM3 Lymphocytes # (Auto) 0.6 TH/MM3 Monocytes # (Auto) 0.8 TH/MM3 Eosinophils # (Auto) 0.0 TH/MM3 Basophils # (Auto) 0.0 TH/MM3 CBC Comment DIFF FINAL Differential Comment Sodium Level 140 MEQ/L Chloride Level 107 MEQ/L Carbon Dioxide Level 19.5 MEQ/L Anion Gap 14 MEQ/L Blood Urea Nitrogen 23 MG/DL Creatinine 0.71 MG/DL Estimat Glomerular Filtration 82 ML/MIN Rate Random Glucose 129 MG/DL Calcium Level 8.3 MG/DL Total Bilirubin 0.8 MG/DL Aspartate Amino Transf 15 U/L (AST/SGOT) Alanine Aminotransferase 22 U/L (ALT/SGPT) Alkaline Phosphatase 137 U/L Total Protein 6.7 GM/DL Albumin 2.1 GM/DL Physical Exam General General Appearance: No Acute Distress, Comfortable Eyes Eye Exam: Pupils Equal, Pupils Reactive, Sclera White, Extraocular Movement Intact Throat Throat Exam: Oral Mucosa [place] & Moist, Oral Pharynx Normal Neck Neck Exam: Neck Supple, Trachea Midline Pulmonary Resp Exam: Clear Bilaterally, Breath Sounds Equal, No Distress Cardiology CV Exam: Normal Sinus Rhythm Gastrointestinal/Abdomen GI Exam: Soft, Non-Tender, Bowel Sounds Present Integumentary Skin Exam: Warm, Dry Extremeties Extremities Exam: No Edema Neurologic Neuro Exam: Alert, Awake, Moving All Extremities Neuro Remarks Dementia. VTE Prophylaxis VTE Remarks Xarelto PUD Prophylasis PUD Prophylaxis: Protonix Assessment/Plan Assessment/Plan ASSESSMENT/PLAN 1. This is a 70-year female who came to the ER diagnosed with altered mental status, unknown etiology. checked a CT scan of the brain without contrast shows nothing acute and metabolic workup..noted neurology input noted have dementia. 2. Possible dementia. Further recommendation per neurology...on Nemenda. 3. Failure to thrive. The patient is on Megace. We will Monitor. 4. History of right lower extremity DVT. The patient is on Xarelto 15 mg twice a day. We will continue. 5. Hypokalemia. resolved. 6. Chest pain, left-sided. Troponin less than 0.02 with Low creatinine kinase, atypical chest pain. 7. Left fifth rib costochondral fracture with a large collection of fluid in the chest and upper abdominal wall. We will monitor which is the most likely cause of the left-sided chest pain. 8. The patient is on a blood thinner, Xarelto. Very sticky situation with DVT and a possible bleed. We will observe closely. 9. Thrombocytosis, we will monitor. 10. Leukocytosis. We will monitor. 11. Hearing problem. 12. History of smoking. Advised to quit. 13. Depression. Continue with Lexapro 10 mg p.o. daily. 14. DVT prophylaxis. The patient is on Xarelto. 15. GI prophylaxis, Protonix 40 mg p.o. daily. We are going to manage the patient on a daily basis and make recommendations on a daily basis. Discussed Condition with: Patient Ren Gonzalez MD Dec 09, 2016 08:22
--- NOTE | 2016-12-09 08:48 | PD.CONS ---
Provisional Diagnosis Admission Date Dec 07, 2016 at 21:02 [place] I. Major depressive disorder, recurrent, without psychosis, Major neurocognitive disorder Conifer II. Deferred History of Present Illness Service Psychiatry Consult Requested By Primary Care Physician Ren Gonzalez MD HPI The patient is a 70-year-old woman, single, domiciled with her son in [facility], psychiatric history of depression, dementia, no psychiatric hospitalizations, she is on Lexapro 10 mg started by PCP, Namenda recently started by neurologist, medical history of DVT of the right lower extremity presents with left-sided chest pain and positional reproducible with some mild shortness of breath and tachycardia. Hospitalized due to poor oral intake, chest pain, she has a left side chest nodule on CT left fifth rib fracture with hematoma collection. Consulted to psychiatry due to symptoms of depression. On psychiatric evaluation patient is poorly cooperative, very irritable, poor historian. Patient states that she prefers not to talk, she doesn't know the reason for hospitalization. She doesn't know which is, she thinks that she is at home. She is not aware of her situation and place and time. When asked about specific date she says we are in 1986. She refused to cooperate with Mini -Mental state. However, she denies depressive symptoms, she denies suicidal and homicidal ideation, she denies visual and auditory hallucinations. At the moment of this evaluation patient does not appear to be psychotic, internally preoccupied, paranoid, delusional. No agitation or aggressive behavior have been reported or observed by staff. Collateral information from her daughter Kiki Rogel, who was present during most part of the evaluation, was obtained. She clarifies that the patient has been demented for the last 2 years, but a progressive deterioration of memory in the last 6 months. Patient is completely dependent on family members. Usually doesn't remember familiar faces , most of the time has to be fed and helped in basic functions. There is not complaining of aggressive behavior or agitation at home. She says the patient is usually easy to handle. She reported the patient never had any previous psychiatric history, she never used any drugs of alcohol. She clarifies that her mother and sister developed Alzheimer's dementia at the same age of the patient and in a very similar fashion. Review of Systems Constitutional: DENIES: Diaphoretic episodes, Fatigue, Fever, Weight gain, Weight loss, Chills, Dizziness, Change in appetite, Night Sweats Endocrine: DENIES: Abnorml menstrual pattern, Heat/cold intolerance, Polydipsia , Polyuria, Polyphagia Eyes: DENIES: Blurred vision, Diplopia, Eye inflammation, Eye pain, Vision loss , Photosensitivity, Double Vision Ears, nose, mouth, throat: DENIES: Tinnitus, Hearing loss, Vertigo, Nasal discharge, Oral lesions, Throat pain, Hoarseness, Ear Pain, Running Nose, Epistaxis, Sinus Pain, Toothache, Odynophagia Respiratory: DENIES: Apneas, Cough, Snoring, Wheezing, Hemoptysis, Sputum production, Shortness of breath Cardiovascular: DENIES: Chest pain, Palpitations, Syncope, Dyspnea on Exertion , PND, Lower Extremity Edema, Orthopnea, Claudication Genitourinary: DENIES: Abnormal vaginal bleeding, Dysmenorrhea, Dyspareunia, Sexual dysfunction, Urinary frequency, Urinary incontinence, Urgency, Hematuria , Dysuria, Nocturia, Vaginal discharge Musculoskeletal: DENIES: Joint pain, Muscle aches, Stiffness, Joint Swelling, Back pain, Neck pain Integumentary: DENIES: Abnormal pigmentation, Pruritus, Rash, Nail changes, Breast masses, Breast skin changes, Nipple discharge Hematologic/lymphatic: DENIES: Bruising, Lymphadenopathy Immunologic/allergic: DENIES: Eczema, Urticaria Neurologic: DENIES: Abnormal gait, Headache, Localized weakness, Paresthesias, Seizures, Speech Problems, Tremor, Poor Balance Psychiatric: DENIES: Anxiety, Confusion, Mood changes, Depression, Hallucinations, Agitation, Suicidal Ideation, Homicidal Ideation, Delusions Past Family Social History Coded Allergies: Codeine (Verified Allergy, Severe, Anaphylaxis-PT UNSURE OF ALLERGY, ) Penicillin (Verified Allergy, Intermediate, Anaphylaxis, 11/23/16) Active Scripts Folic Acid (Folate)1 Mg Tab1 Mg PO DAILY #30 TAB Prov:Ren Gonzalez MD 11/28/16 Escitalopram 10 Mg Tab10 Mg PO DAILY #30 TAB Prov:Ren Gonzalez MD 11/28/16 Reported Medications Rivaroxaban (Xarelto)15 Mg Tab15 Mg PO Q12HR Ref 0 12/07/16 Megestrol Liq (Megace Liq)40 Mg/Ml [id number] Mg PO DAILY Ref 0 12/07/16 Oeeuwcq-Xubixtkwjjxnu-Vlrfiwet (Excedrin Extra Strength)250-250-65 Mg TabUnknown Dose PO DAILY PRN (HEADACHE) Ref 0 11/24/16 Discontinued Scripts Dabigatran (Pradaxa)150 Mg [id number] Mg PO BID #60 CAP Ref 0 Prov:Ren Gonzalez MD 11/28/16 Current Medications Medications (Trade) Dose Ordered Sig/Cal Route Start Time Stop Time Status Last Admin (NS Flush) 2 ml UNSCH PRN IV FLUSH 12/07/16 23:15 (NS Flush) 2 ml BID IV FLUSH 12/08/16 09:00 12/08/16 21:00 (Tylenol) 650 mg Q4H PRN PO 12/07/16 23:15 (Zofran Inj) 4 mg Q6H PRN IVP 12/07/16 23:15 (Dulcolax Supp) 10 mg DAILY PRN RECTAL 12/07/16 23:15 (Senokot) 17.2 mg Q12H PRN PO 12/07/16 23:15 (Narcan Inj) 0.4 mg UNSCH PRN IV 12/07/16 23:15 (Protonix) 40 mg DAILY PO 12/08/16 10:00 12/08/16 12:26 (Lexapro) 10 mg DAILY PO 12/08/16 11:00 12/08/16 12:26 (Folate) 1 mg DAILY PO 12/08/16 11:00 12/08/16 12:26 (Megace Liq) 400 mg DAILY PO 12/08/16 11:00 12/08/16 12:25 (Xarelto) 15 mg Q12HR PO 12/08/16 11:00 12/08/16 22:13 (Namenda) 5 mg DAILY PO 12/08/16 12:00 12/08/16 12:26 Family History Psychiatric history of dementia in her sister and mother Social History She was born and raised in [place], she lives with her son in [facility], she is single, she has 3 kids, her highest level of education was 10th grade Patient's Strengths (min. 2) Family support Physical Exam Vital Signs Vital Signs Date Time Temp Pulse Resp B/P Pulse Ox O2 Delivery O2 Flow Rate FiO2 12/09/16 00:51 97.6 87 18 138/85 100 12/07/16 19:17 Room Air I/O 12/08/16 12/08/16 12/09/16 08:00 16:00 00:00 Intake Total 240 ml 812 ml 240 ml Output Total 200 ml Balance 240 ml 612 ml 240 ml Mental Status Examination Appearance She appears older than his stated age, good hygiene, hospital [facility], she is very irritable and grumpy, poorly cooperative Speech: Hesitant, Slow Orientation: Person Memory: Impaired (describe) Thought Process: Flight of Ideas, Loose Association Thought Content: Other (concrete) Hallucination Type: None Suicidal Ideation: No Previous Suicide Attempts: No Homicidal Ideation: No Previous Homicide Attempts: No Judgment: Poor Affect: Irritable Mood: Angry Motor Activity: Normal gait Assessment & Plan Problem List: (1) Dementia without behavioral disturbance Assessment & Plan: On psychiatric evaluation patient is poorly cooperative, irritable, very grumpy, with visible moderate to severe cognitive impairment. She denies suicidal or homicidal ideation, she denies visual and auditory hallucinations. No agitation or aggressive behavior, delusions, paranoia observed. on Psychiatric assessment today there is no evidence of objective depression, and as per daughter patient had moment of sadness, but at baseline she is very grumpy and irritable. I do not have any objection in continuing escitalopram 10 mg. The patient has an strong history of dementia in her family, her cognition has been deteriorating slowly in the last 2 years, progressively in the last 6 months to the point the patient at times cannot recognize familiar faces, she is totally independent of others, most probably she also has developed Alzheimer 's dementia. Further neurocognitive testing is to be going order to make the diagnosed. Both agree with Namenda 5 mg. No signs of delirium observed, but labs abnormalities, WBC is now 21.6, yesterday was 13.5 which may suggest an underlying focus of infection, and there are also other factors that increased the risk for metabolic encephalopathy. Patient does not meet criteria for psychiatric hospitalization at this moment. Extensive support, motivation psycho education provided. Consul appreciated ICD Code: F03.90 Assessment & Plan Estimated LOS: Iron Lombardo MD Dec 09, 2016 08:48
[2016-12-09] MEDS: PANTOPRAZOLE SOD 40 MG DELAYED RELEASE TAB PO SCH (11:43)
[2016-12-09] MEDS: RIVAROXABAN 15 MG TAB PO SCH ×2 (11:43→20:09)
[2016-12-09] MEDS: FOLIC ACID 1 MG TAB PO SCH (11:43)
[2016-12-09] MEDS: MEGESTROL ACETATE SUSP 400 MG/10 ML CUP PO SCH (11:43)
[2016-12-09] MEDS: SODIUM CHLORIDE 0.9% FLUSH 10 ML FLUSH IV FLUSH SCH ×2 (11:43→20:09)
[2016-12-09] MEDS: MEMANTINE HCL 5 MG TAB PO SCH (11:43)
[2016-12-09] MEDS: ESCITALOPRAM OXALATE 10 MG TAB PO SCH (11:43)
[2016-12-09 12:00] VITALS: BP 152/82; PULSE 97; RESP 18; TEMP 97.2; O2SAT 100
[2016-12-09 14:11] LABS: RAPID PLASMA REAGIN SCREEN NON-REACTIVE (NON-REACTVE)
--- NOTE | 2016-12-09 15:57 | HHI.PR ---
Subjective Remarks not interested in talking to me states feels like "crap" headache but will not elaborate. Objective Vital Signs Date Time Temp Pulse Resp B/P Pulse Ox O2 Delivery O2 Flow Rate FiO2 12/09/16 12:00 97.2 97 18 152/82 100 12/09/16 08:00 97.8 102 18 138/85 100 12/09/16 00:51 97.6 87 18 138/85 100 12/08/16 20:00 97.1 68 18 116/78 100 12/08/16 16:00 96.2 89 16 142/77 100 I/O 12/08/16 12/08/16 12/08/16 12/09/16 12/09/16 12/09/16 07:00 15:00 23:00 07:00 15:00 23:00 Intake Total 240 ml 812 ml 240 ml Output Total 200 ml Balance 240 ml 612 ml 240 ml Intake Oral 240 ml 330 ml 240 ml IV Total 482 ml Output Urine Total 200 ml Bladder Scan Volume Amount 368 ml 368 ml # Voids 0 1 1 # Bowel Movements 0 0 awake alert nad no nuchal rigidity perrla motor intact b12 562 tft ok ammonia [address] brain neg acute process wbc 21.6 plts 613 Result Diagram: 12/09/16 0607 12/09/16 0607 Assessment and Plan Assessment and Plan dementia h/a leukocytosis failure to thrive -namenda 5mg qd increase by 5 mg weekly until at 10 mg bid. -if source of leukocytosis not found suggest LP under fluoroscopy but does not look like a meningeal picture. -oob with PT eval of gait -encourage eating megace etc. Teresa Sanchez MD Dec 09, 2016 15:57
[2016-12-09 16:00] VITALS: BP 141/79; PULSE 106; RESP 18; TEMP 97.4; O2SAT 99
[2016-12-09 20:00] VITALS: BP 126/79; PULSE 115; RESP 20; TEMP 97.4; O2SAT 100
[2016-12-10] VITALS: BP 133/79; PULSE 114; RESP 20; TEMP 97.2; O2SAT 100
[2016-12-10 07:23] LABS: AUTOMATED NEUTROPHIL # 25.1 TH/MM3 (1.8-7.7); BASOPHIL # 0.2 TH/MM3 (0-0.2); BASOPHIL % 0.6 % (0.0-2.0); EOSINOPHIL % 0.1 % (0.0-4.0); HEMATOCRIT 41.7 % (35.0-46.0); LYMPHOCYTE # 0.8 TH/MM3 (1.0-4.8); MEAN CELL VOLUME 83.6 FL (80.0-100.0); MEAN CORPUSCULAR HGB CONC 32.3 % (32.0-36.0); MONO % 2.2 % (0.0-8.0); NEUT % 94.1 % (16.0-70.0); PLATELET COUNT 554 TH/MM3 (150-450); RED BLOOD COUNT 4.99 MIL/MM3 (4.00-5.30); RED CELL DISTRIBUTION WIDTH 17.6 % (11.6-17.2); WHITE BLOOD COUNT 26.7 TH/MM3 (4.0-11.0)
[2016-12-10 07:24] LABS: HEMO FLAGS AUTO DIFF
[2016-12-10 07:28] LABS: CHLORIDE 108 MEQ/L (98-107); POTASSIUM 3.9 MEQ/L (3.5-5.1); SODIUM (NA) 141 MEQ/L (136-145)
[2016-12-10 07:32] LABS: ANION GAP 15 MEQ/L (5-15); BICARBONATE 17.9 MEQ/L (21.0-32.0)
[2016-12-10 07:57] LABS: SCAN/DIFF AUTO DIFF CONFIRMED
[2016-12-10 08:17] LABS: ALKALINE PHOSPHATASE 125 U/L (45-117); ALT (GPT) 19 U/L (10-53); AST (GOT) 16 U/L (15-37); BLOOD UREA NITROGEN 41 MG/DL (7-18); GLOMERULAR FILTRATION RATE 49 ML/MIN (>89); TOTAL BILIRUBIN ADULT 0.9 MG/DL (0.2-1.0)
[2016-12-10] MEDS: MEMANTINE HCL 5 MG TAB PO SCH (08:20)
[2016-12-10] MEDS: RIVAROXABAN 15 MG TAB PO SCH (08:20)
[2016-12-10] MEDS: ESCITALOPRAM OXALATE 10 MG TAB PO SCH (08:20)
[2016-12-10] MEDS: FOLIC ACID 1 MG TAB PO SCH (08:20)
[2016-12-10] MEDS: PANTOPRAZOLE SOD 40 MG DELAYED RELEASE TAB PO SCH (08:20)
[2016-12-10] MEDS: SODIUM CHLORIDE 0.9% FLUSH 10 ML FLUSH IV FLUSH SCH ×2 (08:20→21:00)
[2016-12-10] MEDS: MEGESTROL ACETATE SUSP 400 MG/10 ML CUP PO SCH (08:21)
[2016-12-10 08:57] VITALS: BP 145/60; PULSE 113; RESP 17; TEMP 96.2; O2SAT 100
[2016-12-10] MEDS ORDERED: LEVOFLOXACIN 500 MG PREMIX INJ 100 ML IV SCH (09:00)
--- NOTE | 2016-12-10 09:43 | HHI.PR ---
Subjective History of Present Illness Patient confused no acute issue Neurology and Psych input noted have dementia. high WBC count getting worse no fever no pneumonia on CT chest and Urine did not shows UTI.. consulted infectious disease check blood culture and lactic acid level started on Levaquin 500 mg IV Daily.consult hematology and general surgery for fluid collection left chest wall and upper abdomen. d/w salesperson jewelry of Systems Constitutional Constitutional Remarks unreliable ROS. Vitals/Results Intake & Output 12/09/16 12/09/16 12/10/16 15:00 23:00 07:00 Intake Total 75 ml 75 ml 0 ml Output Total 450 ml 150 ml Balance 75 ml -375 ml -150 ml Intake Oral 75 ml 75 ml 0 ml Output Urine Total 450 ml 150 ml Bladder Scan Volume Amount 368 ml 368 ml # Voids 0 0 0 # Bowel Movements 0 0 0 Vital Signs Vital Signs Date Time Temp Pulse Resp B/P Pulse Ox O2 Delivery O2 Flow Rate FiO2 12/10/16 08:57 96.2 113 17 145/60 100 12/10/16 00:00 97.2 114 20 133/79 100 12/09/16 20:00 97.4 115 20 126/79 100 12/09/16 16:00 97.4 106 18 141/79 99 12/09/16 12:00 97.2 97 18 152/82 100 CBC/BMP: 12/10/16 0655 12/10/16 0655 Lab Results Laboratory Tests Test 12/10/16 06:55 White Blood Count 26.7 TH/MM3 Red Blood Count 4.99 MIL/MM3 Hemoglobin 13.5 GM/DL Hematocrit 41.7 % Mean Corpuscular Volume 83.6 FL Mean Corpuscular Hemoglobin 27.0 PG Mean Corpuscular Hemoglobin 32.3 % Concent Red Cell Distribution Width 17.6 % Platelet Count 554 TH/MM3 Mean Platelet Volume 7.1 FL Neutrophils (%) (Auto) 94.1 % Lymphocytes (%) (Auto) 3.0 % Monocytes (%) (Auto) 2.2 % Eosinophils (%) (Auto) 0.1 % Basophils (%) (Auto) 0.6 % Neutrophils # (Auto) 25.1 TH/MM3 Lymphocytes # (Auto) 0.8 TH/MM3 Monocytes # (Auto) 0.6 TH/MM3 Eosinophils # (Auto) 0.0 TH/MM3 Basophils # (Auto) 0.2 TH/MM3 CBC Comment AUTO DIFF Differential Comment AUTO DIFF CONFIRMED Sodium Level 141 MEQ/L Potassium Level 3.9 MEQ/L Chloride Level 108 MEQ/L Carbon Dioxide Level 17.9 MEQ/L Anion Gap 15 MEQ/L Blood Urea Nitrogen 41 MG/DL Creatinine 1.10 MG/DL Estimat Glomerular Filtration 49 ML/MIN Rate Random Glucose 149 MG/DL Calcium Level 8.4 MG/DL Total Bilirubin 0.9 MG/DL Aspartate Amino Transf 16 U/L (AST/SGOT) Alanine Aminotransferase 19 U/L (ALT/SGPT) Alkaline Phosphatase 125 U/L Total Protein 6.7 GM/DL Albumin 2.1 GM/DL Physical Exam General General Appearance: No Acute Distress, Comfortable Eyes Eye Exam: Pupils Equal, Pupils Reactive, Sclera White, Extraocular Movement Intact Throat Throat Exam: Oral Mucosa Heron & Moist, Oral Pharynx Normal Neck Neck Exam: Neck Supple, Trachea Midline Pulmonary Resp Exam: Clear Bilaterally, Breath Sounds Equal, No Distress Cardiology CV Exam: Normal Sinus Rhythm Gastrointestinal/Abdomen GI Exam: Soft, Non-Tender, Bowel Sounds Present Integumentary Skin Exam: Warm, Dry Extremeties Extremities Exam: No Edema Neurologic Neuro Exam: Alert, Awake, Moving All Extremities Neuro Remarks Dementia. VTE Prophylaxis VTE Remarks Xarelto PUD Prophylasis PUD Prophylaxis: Protonix Assessment/Plan Assessment/Plan ASSESSMENT/PLAN 1. This is a 70-year female who came to the ER diagnosed with altered mental status, unknown etiology. checked a CT scan of the brain without contrast shows nothing acute and metabolic workup..noted neurology input noted have dementia. 2. Possible dementia. Further recommendation per neurology...on Nemenda. 3. Failure to thrive. The patient is on Megace. We will Monitor. 4. History of right lower extremity DVT. The patient is on Xarelto 15 mg twice a day. We will continue. 5. Hypokalemia. resolved. 6. Chest pain, left-sided. Troponin less than 0.02 with Low creatinine kinase, atypical chest pain. 7. Left fifth rib costochondral fracture with a large collection of fluid in the chest and upper abdominal wall. We will monitor which is the most likely cause of the left-sided chest pain. 8. The patient is on a blood thinner, Xarelto. Very sticky situation with DVT and a possible bleed. We will observe closely. consult hematology and general surgery, hold Xarelto. 9. Thrombocytosis, we will monitor. 10. Leukocytosis. We will monitor. 11. Hearing problem. 12. History of smoking. Advised to quit. 13. Depression. Continue with Lexapro 10 mg p.o. daily. 14. DVT prophylaxis. The patient was on Xarelto. 15. GI prophylaxis, Protonix 40 mg p.o. daily. 16. Leukocytosis getting worse no fever no pneumonia on CT chest and Urine did not shows UTI.. consulted infectious disease check blood culture and lactic acid level We are going to manage the patient on a daily basis and make recommendations on a daily basis. Discussed Condition with: Patient Ren Gonzalez MD Dec 10, 2016 09:43
[2016-12-10] MEDS: SODIUM CHLOR 0.9% 1000 ML INJ 1,000 ML IV SCH ×2 (09:45→22:46)
[2016-12-10 13:46] VITALS: BP 115/77; PULSE 114; RESP 16; TEMP 96.6; O2SAT 100
[2016-12-10] MEDS: ACETAMINOPHEN 325 MG TAB PO PRN (13:58)
--- NOTE | 2016-12-10 16:40 | PD.CONS ---
History of Present Illness Service ID CONSULT DR SIFUENTES RE: LEUKOCYTOSIS Consult Requested By DR GONZALEZ Reason for Consult ELEVATED WBC Primary Care Physician Ren Gonzalez MD Diagnoses: (1) Chest wall hematoma (2) Failure to thrive in adult (3) Rib fracture (4) Dementia without behavioral disturbance History of Present Illness 70 Y/O FEMALE ADM WITH SOB AND WEAKNESS. SHE WAS SEEN IN DR RODRIGUEZ OFFICE YESTERDAY FOR THE SAME AND WAS TREATED AND ADVISED ER VISIT HOWEVER SHE REFUSED. FAMILY BEING CONCERNED CONVINCED HER TO COME IN AND THUS SHE IS NOW ADM. SHE IS AFEBRILE HOWEVER APPEARS TO BE FAILURE TO THRIVE. SHE WAS FOUND TO HAVE ELEVATED WBC 17.6 IT IS 26 TODAY. SHE HAS A LARGE HEMATOMA ON EXAM AND ON CT CHEST. SHE IS VERY WEAK AND NOT A GOOD HISTORIAN. SHE IS SLEEPY BUT DIFFICULT TO MAINTAIN AROUSAL. SHE STATES SHE HAS FALLEN BUT CAN NOT ASCERTAIN WHEN. SHE SI CURRENTLY ON LEVAQUIN. ID IS CONSULTED. NO DIARRHEA. SHE WAS RECENTLY STARTED ON XARELTO FOR A LOWER LEG DVT. Review of Systems ROS Limitations: Uncooperative, Poor Historian Constitutional: COMPLAINS OF: Fatigue, DENIES: Fever, Chills Respiratory: COMPLAINS OF: Shortness of breath Cardiovascular: COMPLAINS OF: Chest pain, Palpitations Gastrointestinal: COMPLAINS OF: Abdominal pain Psychiatric: COMPLAINS OF: Confusion Past Family Social History Allergies: Coded Allergies: Codeine (Verified Allergy, Severe, Anaphylaxis-PT UNSURE OF ALLERGY, ) Penicillin (Verified Allergy, Intermediate, Anaphylaxis, 11/23/16) Past Medical History Past Medical History Cancer: No Cardiovascular Problems: No Diminished Hearing: Yes Endocrine: No Genitourinary: No Immune Disorder: No Musculoskeletal: Yes (sciatica) Neurologic: No Psychiatric: No Reproductive: Yes (HYSTERECTOMY) Respiratory: No Menopausal: Yes Past Surgical History Past Surgical History Appendectomy: Yes Cholecystectomy: Yes Ear Surgery: No Endocrine Surgery: No Eye Surgery: No Gynecologic Surgery: Yes (HYSTERECTOMY) Hysterectomy: Yes Oral Surgery: No Tonsillectomy: Yes Reported Medications Reported Meds & Prescriptions Reported Meds & Active Scripts Active Ordered Medications Active Folate (Folic Acid) 1 Mg Tab 1 Mg PO DAILY Escitalopram (Escitalopram Oxalate) 10 Mg Tab 10 Mg PO DAILY Reported Xarelto (Rivaroxaban) 15 Mg Tab 15 Mg PO Q12HR Megace Liq (Megestrol Acetate) 40 Mg/Ml Susp 400 Mg PO DAILY Excedrin Extra Strength (Zkbynix-Rrjuvnygbyzvu-Flfjgilu) 250-250-65 Mg Tab Unknown Dose PO DAILY PRN Social History Social History Alcohol Use: No Tobacco Use: Yes (quit smoking yesterday) Substance Use: No Allergies-Medications Allergies-Medications (Allergen,Severity, Reaction): Coded Allergies: Codeine (Verified Allergy, Severe, Anaphylaxis-PT UNSURE OF ALLERGY, ) Penicillin (Verified Allergy, Intermediate, Anaphylaxis, 11/23/16) Physical Exam Vital Signs Vital Signs Date Time Temp Pulse Resp B/P Pulse Ox O2 Delivery O2 Flow Rate FiO2 12/10/16 13:46 96.6 114 16 115/77 100 12/10/16 08:57 96.2 113 17 145/60 100 12/10/16 00:00 97.2 114 20 133/79 100 12/09/16 20:00 97.4 115 20 126/79 100 Physical Exam GENERAL: This is a women in no obvious distress but is cachetic and appears older than her stated age in poor health. She is failure to thrive. SKIN: No rashes, ecchymoses or lesions. Cool and dry.Her skin is very dry with tenting HEAD: Atraumatic. Normocephalic. No temporal or scalp tenderness. EYES: Pupils equal round and reactive. Extraocular motions intact. No scleral icterus. No injection or drainage. ENT: Nose without bleeding, purulent drainage or septal hematoma. Throat without erythema, tonsillar hypertrophy or exudate. Uvula midline. Airway patent. Her teeth are brown with coating. oral mucosa is dry NECK: Trachea midline. No JVD or lymphadenopathy. Supple, nontender, no meningeal signs. CARDIOVASCULAR: Regular rate and rhythm without murmurs, gallops, or rubs. RESPIRATORY: Clear to auscultation. Breath sounds equal bilaterally. No wheezes , rales, or rhonchi. GASTROINTESTINAL: Abdomen soft, non-tender, nondistended. No hepato-splenomegaly , she has a palpable mass at the left upper abd and lower chest with a skin tear. it is red and swollen and she is v tender. No guarding. MUSCULOSKELETAL: Extremities without clubbing, cyanosis, or edema. No joint tenderness, effusion, or edema noted. No calf tenderness. Negative Homans sign bilaterally. NEUROLOGICAL: sleepy lethargic hard to arouse. Three out of 5 muscle strength in all muscle groups. Normal speech. Laboratory Laboratory Tests Test 12/10/16 12/10/16 06:55 13:32 White Blood Count 26.7 Red Blood Count 4.99 Hemoglobin 13.5 Hematocrit 41.7 Mean Corpuscular Volume 83.6 Mean Corpuscular Hemoglobin 27.0 Mean Corpuscular Hemoglobin 32.3 Concent Red Cell Distribution Width 17.6 Platelet Count 554 Mean Platelet Volume 7.1 Neutrophils (%) (Auto) 94.1 Lymphocytes (%) (Auto) 3.0 Monocytes (%) (Auto) 2.2 Eosinophils (%) (Auto) 0.1 Basophils (%) (Auto) 0.6 Neutrophils # (Auto) 25.1 Lymphocytes # (Auto) 0.8 Monocytes # (Auto) 0.6 Eosinophils # (Auto) 0.0 Basophils # (Auto) 0.2 CBC Comment AUTO DIFF Differential Comment AUTO DIFF CONFIRMED Sodium Level 141 Potassium Level 3.9 Chloride Level 108 Carbon Dioxide Level 17.9 Anion Gap 15 Blood Urea Nitrogen 41 Creatinine 1.10 Estimat Glomerular Filtration 49 Rate Random Glucose 149 Calcium Level 8.4 Total Bilirubin 0.9 Aspartate Amino Transf 16 (AST/SGOT) Alanine Aminotransferase 19 (ALT/SGPT) Alkaline Phosphatase 125 Total Protein 6.7 Albumin 2.1 Lactic Acid Level 5.1 Date/Time Procedure Status Source Growth 12/10/16 09:35 Aerobic Blood Culture Received Blood Peripheral Pending 12/10/16 09:35 Anaerobic Blood Culture Received Blood Peripheral Pending Result Diagram: 12/10/16 0655 12/10/1655 Assessment and Plan Problem List: (1) Rib fracture Status: Acute (2) DVT (deep venous thrombosis) Status: Acute (3) Chest wall hematoma Status: Acute Plan: ? SOURCE OF ELEVATED WBC. SHE IS NOT ON STEROIDS FROM CHART REVIEW./ MAY NEED AN US WITH ASPIRATION AND CULTURE PLAN TO TREAT WITH VANCOMYCIN / AND CEFEPIME AND FOLLOW CULTURES CHECK ESR FURTHER ORDERS TO FOLLOW (4) Dementia without behavioral disturbance Status: Acute (5) Failure to thrive in adult Status: Acute Problem Qualifiers (1) Chest wall hematoma: Qualified Code: S20.212A - Chest wall hematoma, left, initial encounter (2) Rib fracture: (3) Dementia without behavioral disturbance: Thais Milner Dec 10, 2016 16:40
--- NOTE | 2016-12-10 18:03 | MB ---
cc: MING SPRAGUE M.D. DATE OF CONSULTATION: 12/10/2016. ADDENDUM I was able to talk to the patient's son, Maverick Mcginnis, over the phone. I gave him an update of the situation. I told him that the patient would need an IVC filter placement to protect her against pulmonary embolism given her recent right lower extremity extensive deep venous thrombosis and the fact that she cannot be anticoagulated at this point. He had some questions today, which I have answered. He agreed to have the procedure done. I am going to consult interventional radiology for the procedure. He stated that patient has an episode of violent cough one night and was screaming of left chest wall pain after the coughing. She likely had suffered a rib fracture due to the cough. I have also discussed the case with Dr. Gonzalez. MD YURY Lozano/Kaylee /5:29 PM /6:00 PM MTDNikolas
--- NOTE | 2016-12-10 18:03 | MB ---
cc: MING SPRAGUE M.D. DATE OF CONSULTATION: 12/10/2016. REASON FOR CONSULTATION: Hematology was consulted to render opinion regarding a patient with recent right lower extremity venous thrombosis admitted with chest wall pain and possible bleeding in the chest wall. ATTENDING PHYSICIAN: Dr. Ren Gonzalez. HISTORY OF PRESENT ILLNESS The patient is a 70-year-old female admitted earlier this month with right lower extremity pain and swelling. She was found to have deep venous thrombosis. She was discharged home with Eliquis. She has been taking it 15 milligrams twice a day. She was brought into the hospital again three days ago with complaint of left chest pain and under her left breast area. She is a very poor historian. She cannot provide any specific details. Today she knows she is in the hospital but she has no idea why. When I asked her if she has ever fallen, at first she stated "no" but when I told her she had a fractured rib, she said she felt it but could not provide a detailed history. She has shortness of breath but denies any cough. Denies any nausea or vomiting, diarrhea or abdominal pain. She denies any melena or hematochezia. She denies any dysuria or hematuria. She denies any headaches. She denies any focal numbness or weakness. PAST MEDICAL HISTORY: 1. Recent right lower extremity deep venous thrombosis. 2. Possible dementia. 3. Sciatica. 4. Depression. 5. Anorexia. PAST SURGICAL HISTORY: 1. Appendectomy. 2. Cholecystectomy. 3. Hysterectomy. 4. Tonsillectomy. SOCIAL HISTORY: Smokes a quarter pack a day for about 58 years. Denies any alcohol use. She now lives with her son. FAMILY HISTORY: No thromboembolic events. ALLERGIES: 1. CODEINE. 2. PENICILLIN. OUTPATIENT MEDICATIONS: 1. Xarelto. 2. Folate. 3. Megace. 4. Namenda. 5. Lexapro. 6. Protonix. 7. Levaquin was just added. REVIEW OF SYSTEMS: CONSTITUTIONAL: She recently had noticed significant weight loss. EYES: Denies any blurry vision or double vision. ENT: Denies any mouth sores or voice changes. CARDIOVASCULAR: Denies any chest pressure or palpitations. RESPIRATORY: Mild shortness of breath. Denies any cough. GI: Denies any nausea or vomiting, diarrhea or abdominal pain. Denies any melena or hematochezia. : Denies any dysuria or hematuria. MUSCULOSKELETAL: As above. HEMATOLOGIC: As above. ENDOCRINE: Negative. DERMATOLOGIC: As above. NEUROLOGIC: Negative. PHYSICAL EXAMINATION: VITAL SIGNS: Temperature 96.6, pulse 114, blood pressure 115/77, 02 saturation 100%. GENERAL: She is very weak and also lethargic but easily arousable. HEAD, EYES, EARS, NOSE, THROAT: Atraumatic, normocephalic. Pupils equal, round, reactive to light. Extraocular muscles intact. No scleral icterus. OROPHARYNX: Dry mucosa. No lesions. NECK: No thyromegaly. No palpable mass. LYMPHATIC: No palpable cervical, clavicular, axillary or inguinal lymph nodes. CARDIOVASCULAR: Regular S1-S2. No murmur. LUNGS: Clear to auscultation anteriorly. ABDOMEN: Abdomen soft and nontender. I could not palpate liver or spleen. EXTREMITIES: No cyanosis. No edema. No calf tenderness. BACK: Not examined. SKIN: On the chest wall, she has a large hematoma on the lower left chest wall that is quite tender. NEUROLOGIC EXAM: Nonfocal. LABORATORY DATA: Reviewed. ASSESSMENT: 1. Recent right lower extremity deep venous thrombosis. She presented earlier this month with right lower extremity edema and pain. She was found to have extensive deep venous thrombosis. She was discharged home with Xarelto. She has been taking Xarelto and her last dose was this morning. On exam, I do not see any lower extremity edema. I suspect she has bleeding into the left chest wall from a rib fracture causing the hematoma. Xarelto has been stopped. Due to the bleeding she is not a candidate for anticoagulation. I am going to repeat her lower extremity ultrasound. She is going to need an IVC filter placement because of her recent extensive RLE DVT. 2. Left chest wall fluid collection. She came in with left chest pain and pain under her left breast. CT angiogram of the chest did not show any pulmonary embolus, however, there is a large fluid collection in the left chest wall extending all the way down to the upper abdominal wall surrounding the left fifth rib. Radiologist felt that it is possibly a traumatic rib fracture causing a hematoma. She is quite tender on exam. Her hemoglobin however remains normal. She is awaiting evaluation by a surgeon. She also was noted to have elevated white blood cell count and it has trended up to 26.7. Will need to rule out infected hematoma. I think she is going to need aspiration/drainage. She is currently being evaluated by infectious disease. 3. Leukocytosis, which is new. The white blood cell count trended up to 26.7. She is afebrile. She was started on Levaquin. I think the source of infection may be in the left chest wall fluid that may need to be aspirated for further evaluation. 4. Anorexia. She lost more than 50 pounds. She was recently started on Megace. 5. Depression on Lexapro. RECOMMENDATIONS: 1. She is not a candidate for anticoagulation at this point due to possible bleeding in the chest wall. 2. Get ultrasound of the lower extremities. 3. Consult interventional radiology for placement of an IVC filter. 4. She is awaiting evaluation by surgery and infectious disease. I think she needs aspiration of the left chest wall fluid to see if she has an infected hematoma. 5. Continue to monitor the CBC. 6. DVT prophylaxis with SCDs. Thank you Dr. Gonzalez for asking me to see this patient. MD KYLEE Lozano/SUKHI /5:05 PM /5:43 PM MTDNikolas
[2016-12-10 18:12] VITALS: BP 117/63; PULSE 117; RESP 15; TEMP 96.6; O2SAT 100
[2016-12-10 20:00] VITALS: BP 118/73; PULSE 120; RESP 18; TEMP 97.1; O2SAT 99
[2016-12-10] MEDS ORDERED: SODIUM CHLOR 0.9% 1000 ML INJ 1,000 ML IV ONE (20:30)
[2016-12-10] MEDS ORDERED: VANCOMYCIN 1,000 MG/NS 250 ML IV ONE ×2 (21:30)
--- NOTE | 2016-12-10 22:12 | MB ---
cc: MO SMITH MD DATE OF CONSULTATION 12/10/16 REASON FOR CONSULTATION Chest wall hematoma. HISTORY OF PRESENT ILLNESS This is a 70-year-old female who is admitted to the hospital with failure to thrive and dementia and recently diagnosed large DVT of the right lower extremity and she came in with basically failure thrive. She was noted to have pain in the left chest wall area. A CT was done of her chest to rule out pulmonary embolism. She was noted to have a left fifth rib fracture with a large hematoma surrounding it. The patient was on Xarelto for the recently diagnosed lower extremity DVT. Since admission she has had persistent increase of her white blood count now up to 26,000. Today she had elevation of BUN and creatinine to 41 and 1.1 with lactic acid of 5. I was consulted to evaluate the hematoma. PAST MEDICAL HISTORY Past medical history includes recent extensive DVT of the right lower extremity, possible dementia, tobacco smoker. PAST SURGICAL HISTORY Hysterectomy, appendectomy, cholecystectomy. ALLERGIES CODEINE, PENICILLIN. MEDICATIONS 1. Megace. 2. Xarelto. 3. Folate prior to admission. SOCIAL HISTORY Looks like going into the chart she is a smoker. No alcohol abuse. She lives with her son. REVIEW OF SYSTEMS The review of systems is unable to be obtained as she is quite confused and basically the history is obtained from the chart. PHYSICAL EXAMINATION GENERAL: Frail, confused female appears older than her stated age. VITAL SIGNS: Temperature 96.6, heart rate 117, respirations 15, blood pressure 117/63. HEAD: Normocephalic, atraumatic. Eyes: Pupils equal, reactive to light bilaterally. LUNGS: Clear to auscultation bilaterally without wheezing. CHEST: She has significant tenderness to the left chest wall and on the anterior lower chest wall there is a very large fluctuant fluid collection with thinning of the overlying skin and an area of almost necrotic skin in the center, a little larger than a quarter. BREASTS: I examined the left breast in the presence of the nurse. I felt no obvious masses or nodules. ABDOMEN: Soft, nontender. EXTREMITIES: No edema. IMPRESSION AND PLAN A 70-year-old female admitted with failure of thrive with a recent right lower extremity extensive DVT on Xarelto who appears to have probably a traumatic versus possibly a pathologic fracture of the left fifth rib with surrounding hematoma. She was on Xarelto and the hematoma became quite large. She has thinning and early necrosis of the overlying skin and also there is a significant possibility for infection as she appears to be septic with a white blood count of 26,000, lactic acid of 5 and increasing BUN and creatinine. I recommend for drainage and debridement of the chest wall hematoma in the main OR. She is being transferred to the main hospital for IVC filter already. She seems to be quite dry and I will give her one liter bolus of normal saline and increase her fluids to 100 cc/hour. I discussed the case with Dr. Gonzalez. MD BUZZ Sethi/CASTRO /8:33 PM /9:38 PM
[2016-12-10 22:45] VITALS: BP 122/84; PULSE 110; RESP 20; TEMP 98; O2SAT 100
[2016-12-11] VITALS (9 sets, daily range): BP systolic 106–128; BP diastolic 53–72; PULSE 81–106; RESP 13–24; TEMP 95.6–97.7; O2SAT 97–100
[2016-12-11] MEDS ORDERED: SODIUM CHLORID 0.9% 500 ML IV PRN (00:15)
[2016-12-11] MEDS ORDERED: LACTATED RINGER'S 1000 ML IV PRN (00:15)
[2016-12-11] MEDS ORDERED: INSULIN HUMAN REGULAR 1,000 UNITS/10 ML VIAL SQ PRN (00:15)
[2016-12-11] MEDS ORDERED: CHLORHEXIDINE GLUCONATE 2 % 1 PACK (2 CLOTHS) TOPICAL PRN (00:15)
[2016-12-11] MEDS ORDERED: METOPROLOL TARTRATE 25 MG TAB PO PRN (00:15)
[2016-12-11] MEDS ORDERED: POVIDONE IODINE 5% (ANTISEPSIS KIT) 4 APPLICATIONS EACH NARE PRN (00:15)
--- NOTE | 2016-12-11 01:39 | RADRPT ---
EXAM DATE/TIME: 12/11/2016 01:18 [facility] COMPARISON: No previous studies available for comparison. INDICATIONS : Shortness of breath. MEDICAL HISTORY : None. SURGICAL HISTORY : None. ENCOUNTER: Subsequent ACUITY: 2 weeks PAIN SCORE: Non-responsive. LOCATION: chest FINDINGS: PA and lateral views of the chest demonstrate the lungs to be symmetrically aerated without evidence of mass, infiltrate or effusion. The cardiomediastinal contours are unremarkable. Osseous structure s are intact. CONCLUSION: No acute disease. Ck Cardoza Jr., MD on December 11, 2016 at 1:37 Board Certified Radiologist. This report was verified electronically.
[2016-12-11] MEDS: MEMANTINE HCL 5 MG TAB PO SCH (06:57)
[2016-12-11] MEDS: ESCITALOPRAM OXALATE 10 MG TAB PO SCH (06:57)
[2016-12-11] MEDS: FOLIC ACID 1 MG TAB PO SCH (06:57)
[2016-12-11] MEDS: PANTOPRAZOLE SOD 40 MG DELAYED RELEASE TAB PO SCH (06:57)
[2016-12-11] MEDS: MEGESTROL ACETATE SUSP 400 MG/10 ML CUP PO SCH (06:57)
[2016-12-11] MEDS: SODIUM CHLOR 0.9% 1000 ML INJ 1,000 ML IV SCH ×2 (07:13→16:49)
[2016-12-11] MEDS: SODIUM CHLORIDE 0.9% FLUSH 10 ML FLUSH IV FLUSH SCH ×2 (07:15→21:00)
[2016-12-11] MEDS: LEVOFLOXACIN/DEXTROSE 250 MG/50 ML IV SCH (07:15)
[2016-12-11] MEDS ORDERED: Vancomycin Consult Pharmacy 1 EA OTHER SCH (07:45)
[2016-12-11] MEDS ORDERED: BUPIVACAINE HCL PF 0.5% 30 ML VIAL ONE (08:36)
--- NOTE | 2016-12-11 08:44 | HHI.PR ---
Subjective History of Present Illness Patient confused no acute issue Neurology and Psych input noted have dementia. high WBC count blood culture grows MRSA Sepsis on admission on vancomycin and Levaquin. no fever infectious disease input noted hematology and general surgery input noted for fluid collection left chest wall and upper abdomen. going for fluid drainage d/w RN Shira Insert NG Tube in and start tube feeding d/w son and sisters at bed side told about critical condition of patient and poor prognosis they verbalize understanding. Review of Systems Constitutional Constitutional Remarks unreliable ROS. Vitals/Results Intake & Output 12/10/16 12/10/16 12/11/16 15:00 23:00 07:00 Intake Total 1125 ml 500 ml Output Total 200 ml 100 ml Balance 925 ml 400 ml Intake Oral 125 ml IV Total 1000 ml 500 ml Output Urine Total 200 ml 100 ml Vital Signs Vital Signs Date Time Temp Pulse Resp B/P Pulse Ox O2 Delivery O2 Flow Rate FiO2 12/11/16 07:46 95.6 106 19 109/65 97 12/11/16 03:55 97.7 106 16 116/72 100 12/10/16 22:45 98.0 110 20 122/84 100 12/10/16 20:00 97.1 120 18 118/73 99 12/10/16 18:12 96.6 117 15 117/63 100 12/10/16 13:46 96.6 114 16 115/77 100 12/10/16 08:57 96.2 113 17 145/60 100 CBC/BMP: 12/10/16 0655 12/10/16 0655 Lab Results Laboratory Tests Test 12/10/16 12/11/16 13:32 07:55 Lactic Acid Level 5.1 mmol/L 3.4 mmol/L Microbiology Microbiology 12/10/16 Aerobic Blood Culture, Received Pending 12/10/16 Anaerobic Blood Culture, Received Pending 12/10/16 Aerobic Blood Culture, Resulted Pending 12/10/16 Anaerobic Blood Culture - Final, Resulted QNS - SEE AEROBE REPORT Physical Exam General General Appearance: No Acute Distress, Comfortable Eyes Eye Exam: Pupils Equal, Pupils Reactive, Sclera White, Extraocular Movement Intact Throat Throat Exam: Oral Mucosa Burdett & Moist, Oral Pharynx Normal Neck Neck Exam: Neck Supple, Trachea Midline Pulmonary Resp Exam: Clear Bilaterally, Breath Sounds Equal, No Distress Cardiology CV Exam: Normal Sinus Rhythm Gastrointestinal/Abdomen GI Exam: Soft, Non-Tender, Bowel Sounds Present Integumentary Skin Exam: Warm, Dry Extremeties Extremities Exam: No Edema Neurologic Neuro Exam: Alert, Awake, Moving All Extremities Neuro Remarks Dementia. VTE Prophylaxis VTE Remarks Xarelto PUD Prophylasis PUD Prophylaxis: Protonix Assessment/Plan Assessment/Plan ASSESSMENT/PLAN 1. This is a 70-year female who came to the ER diagnosed with altered mental status, unknown etiology. checked a CT scan of the brain without contrast shows nothing acute and metabolic workup..noted neurology input noted have dementia. 2. Possible dementia. Further recommendation per neurology...on Nemenda. 3. Failure to thrive. The patient is on Megace. We will Monitor. Insert NG Tube in and start tube feeding. 4. History of right lower extremity DVT. The patient was on Xarelto 15 mg twice a day. We will continue. 5. Hypokalemia. resolved. 6. Chest pain, left-sided. Troponin less than 0.02 with Low creatinine kinase, atypical chest pain. 7. Left fifth rib costochondral fracture with a large collection of fluid in the chest and upper abdominal wall. We will monitor which is the most likely cause of the left-sided chest pain. 8. The patient was on a blood thinner, Xarelto. Very sticky situation with DVT and a possible bleed. We will observe closely. hold Xarelto. hematology and general surgery input noted for fluid collection left chest wall and upper abdomen. going for fluid drainage hematology agree with holding Xarelto. 9. Thrombocytosis, we will monitor. 10. Leukocytosis. We will monitor. 11. Hearing problem. 12. History of smoking. Advised to quit. 13. Depression. Continue with Lexapro 10 mg p.o. daily. 14. DVT prophylaxis. The patient was on Xarelto. 15. GI prophylaxis, Protonix 40 mg p.o. daily. 16. Leukocytosis / Sepsis on admission no fever no pneumonia on CT chest and Urine did not shows UTI..blood culture grows MRSA Sepsis on admission on vancomycin and Levaquin. infectious disease input noted d/w son and sisters at bed side told about critical condition of patient and poor prognosis they verbalize understanding. Check CBC with diff CMP in AM. We are going to manage the patient on a daily basis and make recommendations on a daily basis. Discussed Condition with: Son, Relative Ren Gonzalez MD Dec 11, 2016 08:44
[2016-12-11 09:19] LABS: AUTOMATED NEUTROPHIL # 24.1 TH/MM3 (1.8-7.7); BASOPHIL % 0.1 % (0.0-2.0); EOSINOPHIL % 0.2 % (0.0-4.0); HEMATOCRIT 32.7 % (35.0-46.0); HEMO FLAGS AUTO DIFF; LYMPH % 2.9 % (9.0-44.0); LYMPHOCYTE # 0.7 TH/MM3 (1.0-4.8); MEAN CELL VOLUME 83.5 FL (80.0-100.0); MEAN CORPUSCULAR HGB CONC 32.3 % (32.0-36.0); MONO % 1.5 % (0.0-8.0); NEUT % 95.3 % (16.0-70.0); PLATELET COUNT 324 TH/MM3 (150-450); RED BLOOD COUNT 3.92 MIL/MM3 (4.00-5.30); WHITE BLOOD COUNT 25.3 TH/MM3 (4.0-11.0)
[2016-12-11 09:27] LABS: APTT (PATIENT) 52.9 SEC (24.3-30.1); INTERNATIONAL NORMALIZED RATIO 4.7 RATIO; PROTHROMBIN TIME - PATIENT 56.1 SEC (9.8-11.6)
[2016-12-11 10:04] LABS: BANDS 13 % (0-6); CORRECTED NUCLEATED RBC 1 /100 WBC (0-0); PLATELET ESTIMATE SMEAR NORMAL (NORMAL); PLATELET MORPHOLOGY NORMAL (NORMAL); POLYS (SEG NEUTROPHILS) 82 % (16-70); SCAN/DIFF FINAL DIFF MANUAL; TOXIC VACUOLATION PRESENT (NONE SEEN); WBC DIFF SAMPLE 100
[2016-12-11 10:05] LABS: KERATOCYTES OCC (NORMAL)
[2016-12-11 10:10] LABS: ALKALINE PHOSPHATASE 93 U/L (45-117); ALT (GPT) 15 U/L (10-53); ANION GAP 12 MEQ/L (5-15); AST (GOT) 14 U/L (15-37); BICARBONATE 17.8 MEQ/L (21.0-32.0); BLOOD UREA NITROGEN 56 MG/DL (7-18); CHLORIDE 115 MEQ/L (98-107); GLOMERULAR FILTRATION RATE 34 ML/MIN (>89); POTASSIUM 3.8 MEQ/L (3.5-5.1); SODIUM (NA) 145 MEQ/L (136-145); TOTAL BILIRUBIN ADULT 0.7 MG/DL (0.2-1.0)
[2016-12-11] MEDS ORDERED: SODIUM CHLOR 0.9% 250 ML INJ 250 ML IV ONE (10:45)
[2016-12-11] MEDS ORDERED: diphenhydrAMINE HCL 25 MG CAP PO PRN ×2 (10:45→18:00)
[2016-12-11] MEDS ORDERED: ACETAMINOPHEN 325 MG TAB PO PRN ×2 (10:45→18:00)
[2016-12-11] MEDS ORDERED: PHYTONADIONE 10 MG/ML VIAL SQ ONE (10:45)
--- NOTE | 2016-12-11 10:50 | PD.OP ---
cc: Ren Gonzalez MD; Rajesh,Atul SALDANA Operative Report Date of Surgery: Dec 11, 2016 Preoperative Diagnosis: (1) Chest wall hematoma (2) Rib fracture Postoperative Diagnosis: (1) Chest wall abscess (2) Chest wall hematoma (3) Rib fracture Procedure: Drainage of chest wall abscess and debridement of overlying necrotic skin and subcutaneous tissue Anesthesia: MICHELA Surgeon: Atul Mena Senior Games Technician(s): Margarita Operation and Findings: EBL: 30 cc Indication: The patient is a 70-year-old female with failure to thrive his been treated with Guillermo for a right lower extremity extensive DVT. She was admitted to the hospital a few days ago and noted to have a rib fracture with overlying hematoma. She has become septic. Plans were made for drainage and debridement for probable infected hematoma. Prior to the operation the patient was found to have an INR of 4.7. Due to her severe sepsis and the somewhat limited nature of the procedure I opted to proceed with surgery. Operative findings: The patient had necrotic skin and subcutaneous tissue the anterior left lower chest wall. There was 300 cc of pus present. The area of rib fracture more superior and lateral was palpable. I packed the cavity tightly with cling gauze to help with hemostasis. There was really limited bleeding. Procedure in detail: The patient was taken to the operating room and placed in supine position. General endotracheal anesthesia was induced. The chest was prepped and draped in usual sterile fashion. A surgical timeout was performed to verify correct patient procedure and site. An incision was made overlying an area of necrotic skin in the anterior left lower chest wall where the underlying hematoma had come to a point. There is immediately expression of a large amount of pus. I excised a 4 x 4 centimeter area of necrotic skin and subcutaneous tissue sharply. 300 cc of pus was drained from the abscess cavity which extended inferiorly at least to the inframammary fold and superiorly up to maybe the fourth intercostal space. I could palpate the fractured rib which was a little soft and mobile. I did not want to perform an aggressive debridement or any sort of debridement of the rib due to the patient's elevated INR. Further necrotic subcutaneous tissue was debrided. The cavity was copiously irrigated with a [id number] solution of peroxide and normal saline. Dampened 6 inch Wilbur gauze was packed in the abscess cavity. There was good hemostasis. The patient tolerated the procedure well and was x-rayed and taken to PACU in stable condition. I did discuss the patient's elevated INR with Dr. Jaylen Fierro postoperatively for further follow-up and treatment. Atul Mena MD Dec 11, 2016 10:50
[2016-12-11] MEDS ORDERED: DO NOT ADM ANY ANTICOAGULANT DRUGS PRN (11:15)
[2016-12-11] MEDS ORDERED: NEOSTIGMINE 3 MG/3 ML SYR IV ONE (12:00)
[2016-12-11] MEDS ORDERED: PHENYLEPH/NS 1000 MCG/10 ML SYR IV ONE (12:00)
[2016-12-11] MEDS ORDERED: PROPOFOL 200 MG/20 ML AMP IV ONE (12:00)
[2016-12-11] MEDS ORDERED: ONDANSETRON HCL 4 MG/2 ML VIAL IV PUSH ONE (12:00)
--- NOTE | 2016-12-11 14:30 | PD.ONC.PN ---
Subjective Subjective Remarks Afebrile overnight. Patient receiving ultrasound of lower extremities. she is lethargic, just back from surgery where hematoma/abscess was drained. Objective Data Date Time Temp Pulse Resp B/P Pulse Ox O2 Delivery O2 Flow Rate FiO2 12/11/16 12:00 95.6 93 18 123/58 100 12/11/16 11:00 91 16 102/64 99 Nasal Cannula 4 12/11/16 10:45 91 16 119/67 99 Nasal Cannula 4 12/11/16 10:25 96.8 104 15 107/55 92 Nasal Cannula 4 12/11/16 07:46 95.6 106 19 109/65 97 12/11/16 03:55 97.7 106 16 116/72 100 12/10/16 22:45 98.0 110 20 122/84 100 12/10/16 20:00 97.1 120 18 118/73 99 12/10/16 18:12 96.6 117 15 117/63 100 12/11/16 12/11/16 12/11/16 07:00 15:00 23:00 Intake Total 500 ml 900 ml Output Total 100 ml 120 ml Balance 400 ml 780 ml Result Diagram: 12/11/16 0902 12/11/16 0902 Laboratory Results Laboratory Tests Test 12/11/16 12/11/16 12/11/16 07:55 09:02 11:15 Lactic Acid Level 3.4 mmol/L White Blood Count 25.3 TH/MM3 Red Blood Count 3.92 MIL/MM3 Hemoglobin 10.6 GM/DL Hematocrit 32.7 % Mean Corpuscular Volume 83.5 FL Mean Corpuscular Hemoglobin 27.0 PG Mean Corpuscular Hemoglobin 32.3 % Concent Red Cell Distribution Width 18.0 % Platelet Count 324 TH/MM3 Mean Platelet Volume 7.6 FL Neutrophils (%) (Auto) 95.3 % Lymphocytes (%) (Auto) 2.9 % Monocytes (%) (Auto) 1.5 % Eosinophils (%) (Auto) 0.2 % Basophils (%) (Auto) 0.1 % Neutrophils # (Auto) 24.1 TH/MM3 Lymphocytes # (Auto) 0.7 TH/MM3 Monocytes # (Auto) 0.4 TH/MM3 Eosinophils # (Auto) 0.0 TH/MM3 Basophils # (Auto) 0.0 TH/MM3 CBC Comment AUTO DIFF Differential Total Cells 100 Counted Neutrophils % (Manual) 82 % Band Neutrophils % 13 % Lymphocytes % 1 % Monocytes % 4 % Neutrophils # (Manual) 24.0 TH/MM3 Nucleated Red Blood Cells 1 /100 WBC Differential Comment FINAL DIFF MANUAL Toxic Vacuolation PRESENT Platelet Estimate NORMAL Platelet Morphology Comment NORMAL Keratocytes OCC Prothrombin Time 56.1 SEC Prothromb Time International 4.7 RATIO Ratio Activated Partial 52.9 SEC Thromboplast Time Fibrinogen 529 mg/dL Sodium Level 145 MEQ/L Potassium Level 3.8 MEQ/L Chloride Level 115 MEQ/L Carbon Dioxide Level 17.8 MEQ/L Anion Gap 12 MEQ/L Blood Urea Nitrogen 56 MG/DL Creatinine 1.51 MG/DL Estimat Glomerular Filtration 34 ML/MIN Rate Random Glucose 135 MG/DL Calcium Level 8.2 MG/DL Total Bilirubin 0.7 MG/DL Aspartate Amino Transf 14 U/L (AST/SGOT) Alanine Aminotransferase 15 U/L (ALT/SGPT) Alkaline Phosphatase 93 U/L Total Protein 5.6 GM/DL Albumin 1.8 GM/DL Blood Type A NEGATIVE A NEGATIVE Blood Bank Comment Culture Results Microbiology Date/Time Procedure Status Source Growth 12/10/16 09:25 Aerobic Blood Culture - Preliminary Resulted Blood Peripheral NO GROWTH IN 1 DAY 12/10/16 09:25 Anaerobic Blood Culture - Preliminary Resulted S. Aureus Mrsa 12/10/16 09:35 Aerobic Blood Culture - Preliminary Resulted Blood Peripheral NO GROWTH IN 1 DAY 12/10/16 09:35 Anaerobic Blood Culture - Final Resulted Blood Peripheral QNS - SEE AEROBE REPORT 12/11/16 10:15 Gram Stain Received Wound Chest Pending 12/11/16 10:15 Wound Culture Received Wound Chest Pending 12/11/16 10:15 Acid Fast Stain Received Wound Chest Pending 12/11/16 10:15 Mycobacterial Culture Received Wound Chest Pending 12/11/16 10:15 Fungal Smear Received Wound Chest Pending 12/11/16 10:15 Fungal Culture Received Wound Chest Pending Imaging Studies Last 24 hours Impressions Chest X-Ray 12/11/16 0000 Signed Impressions: Service Date/Time: Sunday, December 11, 2016 01:18 - CONCLUSION: No acute disease. Ck Cardoza Jr., MD Administered Medications Medications (Trade) Dose Ordered Sig/Cal Route PRN Reason Start Time Stop Time Status Last Admin Dose Admin Sodium Chloride (NS Flush) 2 ml BID IV FLUSH 12/08/16 09:00 12/11/16 07:15 Acetaminophen (Tylenol) 650 mg Q4H PRN PO TEMP > 100.4 12/07/16 23:15 12/10/16 13:58 Pantoprazole Sodium (Protonix) 40 mg DAILY PO 12/08/16 10:00 12/10/16 08:20 Escitalopram Oxalate (Lexapro) 10 mg DAILY PO 12/08/16 11:00 12/10/16 08:20 Folic Acid (Folate) 1 mg DAILY PO 12/08/16 11:00 12/10/16 08:20 Megestrol Acetate (Megace Liq) 400 mg DAILY PO 12/08/16 11:00 12/10/16 08:21 Memantine 5 mg 5 mg DAILY PO 12/08/16 12:00 12/10/16 08:20 Levofloxacin/ Dextrose 50 ml @ 50 mls/hr Q24H IV 12/11/16 09:00 12/11/16 07:15 Sodium Chloride (NS 1000 ml Inj) 1,000 ml @ 100 mls/hr Q10H IV 12/10/16 09:45 12/10/16 22:46 Objective Remarks GENERAL: Pleasant elderly female, lying in bed, lethargic, receiving lower extremity ultrasound SKIN: Warm and dry. HEAD: Normocephalic. EYES: No injection or drainage. NECK: Supple, trachea midline. CARDIOVASCULAR: Regular rate and rhythm RESPIRATORY: Breath sounds equal bilaterally. No accessory muscle use. GASTROINTESTINAL: Abdomen soft, non-tender, nondistended. bandage along left abdomen/chest wall. EXTREMITIES: No cyanosis Assessment/Plan Problem List: (1) DVT (deep venous thrombosis) Status: Acute Plan: --Right lower extremity deep venous thrombosis diagnosed earlier this month. patient started on xarelto which has now been discontinued d/t hematoma+ abscess formation --Due to the bleeding she is not a candidate for anticoagulation. -- is going to need an IVC filter placement because of her recent extensive RLE DVT (2) Chest wall hematoma Status: Acute Plan: --CT angiogram showed NO PE; +large fluid collection in the left chest wall extending all the way down to the upper abdominal wall surrounding the left fifth rib. Radiologist felt that it is possibly a traumatic rib fracture causing a hematoma. --underwent drainage which showed abscess formation on 12/11 (see MD operative note) (3) Coagulopathy Status: Acute Plan: --PT/PTT/INR prolonged. --on 12/11 3 units FFP ordered as well as Vitamin K 10mg SQ Assessment 70y/o female with right lower extremity venous thrombosis admitted with chest wall pain and possible bleeding in the chest wall. h/o Possible dementia. Sciatica. Depression. Anorexia. Plan 1. continue antibiotics 2. 3 units FFP + Vitamin K 10mg SQ x1. repeat coags after those infusions have been given 3. monitor CBC, coags 4. will not be able to have IVC filter placed today as patient has abscessed hematoma on chest wall. 5. ultrasound bilateral lower extremities Attending Statement The exam, history, and the medical decision-making described in the above note were completed with the assistance of the mid-level provider. I reviewed and agree with the findings presented. I attest that I had a [id number] encounter with the patient on the same day, and personally performed and documented my assessment and findings in the medical record.Pt has drainage and debridement of chest wall abscess, there was necrotic tissue noted, no excessive bleeding noted. Discussed with . Not able to place IVC filter because of infection/abscess which could seed the IVC filter. I will cancel the IVC filter placement for now. Discussed with . Pt has elevated INR/coagulopathy, no gross bleeding noted. This may be DIC and possible vit K deficiency due to malnutrition and recent Xarelto. Will give FFP and vitamin K. US still showed residual RLE DVT although clinically she has no edema. This is a difficult situation with competing needs. Since we can no place the IVC filter, can consider starting subQ heparin tomorrow if her coagulopathy improved and if she has no evidence of bleeding. If she tolerated subq heparin then can try heparin drip. Problem Qualifiers (1) Chest wall hematoma: Qualified Code: S20.212A - Chest wall hematoma, left, initial encounter Meli Martinez Dec 11, 2016 14:30 Jaylen Fierro MD Dec 11, 2016 16:49
--- NOTE | 2016-12-11 15:51 | RADRPT ---
EXAM DATE/TIME: 12/11/2016 15:13 [facility] COMPARISON: No previous studies available for comparison. INDICATIONS : Abdominal pain. MEDICAL HISTORY : None. SURGICAL HISTORY : None. ENCOUNTER: Initial ACUITY: 1 day PAIN SCORE: 1/10 LOCATION: Bilateral chest FINDINGS: The bowel gas is nonspecific. There are no signs of obstruction or free air for technique. No defini te calcified stones are identified for technique. Moderate stool is present throughout the colon. CONCLUSION: Unremarkable study except for stool. Marjorie Hyman MD on December 11, 2016 at 15:50 Board Certified Radiologist. This report was verified electronically.
[2016-12-11] MEDS: VANCOMYCIN 1,000 MG/NS 250 ML IV SCH ×2 (15:52)
--- NOTE | 2016-12-11 15:54 | RADRPT ---
EXAM DATE/TIME: 12/11/2016 13:49 [facility] COMPARISON: No previous studies available for comparison. INDICATIONS : Bilateral leg swelling. Recent deep vein thrombosis. MEDICAL HISTORY : Deep venous thrombosis. Dyspnea. Abdominal pain. Sciatic nerve. Anticoagulant therapy, Xarelto. SURGICAL HISTORY : Tonsillectomy.Cholecystectomy. Appendectomy.Hysterectomy. ENCOUNTER: Subsequent ACUITY: 1 day PAIN SCORE: 4/10 LOCATION: Bilateral leg. TECHNIQUE: Venous ultrasound of the left and right leg was performed from the inguinal ligament to the proximal calf. Real-time, color Doppler and spectral tracing, compression and augmentation techniques were us ed. FINDINGS: RIGHT LEG: Occlusive thrombus is seen in the posterior tibial vein into the right common femoral vein extending to the mid calf. LEFT LEG: There is no evidence for deep venous thrombosis on the left. Popliteal cyst measuring 2.7 cm x 2 cm is noted. CONCLUSION: Venous deep venous thrombosis on the right extending into the mid common femoral vein. This begins i n the posterior tibia and extends into the popliteal vein. Sean Shabazz MD FACR on December 11, 2016 at 15:50 Board Certified Radiologist. This report was verified electronically.
--- NOTE | 2016-12-11 17:38 | RADRPT ---
EXAM DATE/TIME: 12/11/2016 17:10 [facility] COMPARISON: ABDOMEN KUB ONLY, December 11, 2016, 15:13. INDICATIONS : Evaluate for NG tube placement. MEDICAL HISTORY : None. SURGICAL HISTORY : None. ENCOUNTER: Initial ACUITY: 1 day PAIN SCORE: Non-responsive. LOCATION: Bilateral abdomen. FINDINGS: The bowel gas is nonspecific. There are no signs of obstruction or free air for technique. No defini te calcified stones are identified for technique. NG tube is present with tip in the stomach. CONCLUSION: Nonspecific abdomen. Marjorie Hyman MD on December 11, 2016 at 17:36 Board Certified Radiologist. This report was verified electronically.
--- NOTE | 2016-12-11 22:42 | HHI.IDPN ---
Subjective Subjective Remarks Delayed entry - seen earlier today chart reviewed Pt was seen by Thais Milner earlier 70 yo F c dementia, had chest wall abcess She was transferred from [facility] for surgery bl clx + for MRSA Antibiotics vancomycin Allergies: Coded Allergies: Codeine (Verified Allergy, Severe, Anaphylaxis-PT UNSURE OF ALLERGY, ) Penicillin (Verified Allergy, Intermediate, Anaphylaxis, 11/23/16) Objective . Vital Signs Date Time Temp Pulse Resp B/P Pulse Ox O2 Delivery O2 Flow Rate FiO2 12/11/16 22:02 96.7 83 14 117/62 100 12/11/16 21:47 97.0 87 13 128/65 100 12/11/16 18:33 96.1 87 16 114/59 100 12/11/16 18:13 95.6 89 20 106/58 100 12/11/16 12:00 95.6 93 18 123/58 100 12/11/16 11:00 91 16 102/64 99 Nasal Cannula 4 12/11/16 10:45 91 16 119/67 99 Nasal Cannula 4 12/11/16 10:25 96.8 104 15 107/55 92 Nasal Cannula 4 12/11/16 07:46 95.6 106 19 109/65 97 12/11/16 03:55 97.7 106 16 116/72 100 12/10/16 22:45 98.0 110 20 122/84 100 12/10/16 12/10/16 12/11/16 15:00 23:00 07:00 Intake Total 1125 ml 500 ml Output Total 200 ml 100 ml Balance 925 ml 400 ml Intake Oral 125 ml IV Total 1000 ml 500 ml Output Urine Total 200 ml 100 ml . Laboratory Tests Test 12/10/16 12/11/16 06:55 09:02 White Blood Count 26.7 TH/MM3 25.3 TH/MM3 Red Blood Count 4.99 MIL/MM3 3.92 MIL/MM3 Hemoglobin 13.5 GM/DL 10.6 GM/DL Hematocrit 41.7 % 32.7 % Mean Corpuscular Volume 83.6 FL 83.5 FL Mean Corpuscular Hemoglobin 27.0 PG 27.0 PG Mean Corpuscular Hemoglobin 32.3 % 32.3 % Concent Red Cell Distribution Width 17.6 % 18.0 % Platelet Count 554 TH/MM3 324 TH/MM3 Mean Platelet Volume 7.1 FL 7.6 FL Neutrophils (%) (Auto) 94.1 % 95.3 % Lymphocytes (%) (Auto) 3.0 % 2.9 % Monocytes (%) (Auto) 2.2 % 1.5 % Eosinophils (%) (Auto) 0.1 % 0.2 % Basophils (%) (Auto) 0.6 % 0.1 % Neutrophils # (Auto) 25.1 TH/MM3 24.1 TH/MM3 Lymphocytes # (Auto) 0.8 TH/MM3 0.7 TH/MM3 Monocytes # (Auto) 0.6 TH/MM3 0.4 TH/MM3 Eosinophils # (Auto) 0.0 TH/MM3 0.0 TH/MM3 Basophils # (Auto) 0.2 TH/MM3 0.0 TH/MM3 CBC Comment AUTO DIFF AUTO DIFF Differential Comment AUTO DIFF FINAL DIFF CONFIRMED MANUAL Differential Total Cells 100 Counted Neutrophils % (Manual) 82 % Band Neutrophils % 13 % Lymphocytes % 1 % Monocytes % 4 % Neutrophils # (Manual) 24.0 TH/MM3 Nucleated Red Blood Cells 1 /100 WBC Toxic Vacuolation PRESENT Platelet Estimate NORMAL Platelet Morphology Comment NORMAL Keratocytes OCC Laboratory Tests Test 12/10/16 12/10/16 12/11/16 12/11/16 06:55 13:32 07:55 09:02 Sodium Level 141 MEQ/L 145 MEQ/L Potassium Level 3.9 MEQ/L 3.8 MEQ/L Chloride Level 108 MEQ/L 115 MEQ/L Carbon Dioxide Level 17.9 MEQ/L 17.8 MEQ/L Anion Gap 15 MEQ/L 12 MEQ/L Blood Urea Nitrogen 41 MG/DL 56 MG/DL Creatinine 1.10 MG/DL 1.51 MG/DL Estimat Glomerular Filtration 49 ML/MIN 34 ML/MIN Rate Random Glucose 149 MG/DL 135 MG/DL Calcium Level 8.4 MG/DL 8.2 MG/DL Total Bilirubin 0.9 MG/DL 0.7 MG/DL Aspartate Amino Transf 16 U/L 14 U/L (AST/SGOT) Alanine Aminotransferase 19 U/L 15 U/L (ALT/SGPT) Alkaline Phosphatase 125 U/L 93 U/L Total Protein 6.7 GM/DL 5.6 GM/DL Albumin 2.1 GM/DL 1.8 GM/DL Lactic Acid Level 5.1 mmol/L 3.4 mmol/L Microbiology Date/Time Procedure Status Source Growth 12/10/16 09:25 Aerobic Blood Culture - Preliminary Resulted Blood Peripheral Gram Positive Cocci 12/10/16 09:25 Anaerobic Blood Culture - Preliminary Resulted S. Aureus Mrsa 12/10/16 09:35 Aerobic Blood Culture - Preliminary Resulted Blood Peripheral NO GROWTH IN 1 DAY 12/10/16 09:35 Anaerobic Blood Culture - Final Resulted Blood Peripheral QNS - SEE AEROBE REPORT 12/11/16 10:15 Gram Stain - Final Resulted Wound Chest 12/11/16 10:15 Wound Culture Resulted Wound Chest Pending 12/11/16 10:15 Acid Fast Stain Received Wound Chest Pending 12/11/16 10:15 Mycobacterial Culture Received Wound Chest Pending 12/11/16 10:15 Fungal Smear - Final Resulted Wound Chest NO FUNGAL ELEMENTS SEEN. 12/11/16 10:15 Fungal Culture Resulted Wound Chest Pending Imaging Last Impressions Lower Extremity Ultrasound 12/11/16 0000 Signed Impressions: Service Date/Time: Sunday, December 11, 2016 13:49 - CONCLUSION: Venous deep venous thrombosis on the right extending into the mid common femoral vein. This begins in the posterior tibia and extends into the popliteal vein. Sean Shabazz MD FACR Chest X-Ray 12/11/16 0000 Signed Impressions: Service Date/Time: Sunday, December 11, 2016 01:18 - CONCLUSION: No acute disease. Ck Cardoza Jr., MD Abdomen X-Ray 12/11/16 0000 Signed Impressions: Service Date/Time: Sunday, December 11, 2016 17:10 - CONCLUSION: Nonspecific abdomen. K. Agustin Hyman MD Head CT 12/08/16 0000 Signed Impressions: Service Date/Time: Thursday, December 08, 2016 11:34 - CONCLUSION: 1. No acute findings in the brain. 2. Focal scalp thickening high midline frontal region. No skull fracture seen. Ck Power MD CT Angiography 12/07/16 1844 Signed Impressions: Service Date/Time: Wednesday, December 07, 2016 19:40 - CONCLUSION: 1. No pulmonary embolus. 2. Limited evaluation otherwise but a fracture has clearly developed near the costochondral junction of the left fifth rib and surrounded by a large collection of fluid in the chest and upper abdominal wall, all new. A traumatic fracture with hematoma/seroma is felt most likely. I don't see a discrete mass or other clear etiology for any pathologic fracture. I also don't clearly see evidence of active bleeding. 3. Small, dependently layering and fairly low attenuation left pleural effusion now demonstrated. Nithin Hurley MD Physical Exam CONSTITUTIONAL/GENERAL: This is an adequately nourished patient, in no apparent distress. TUBES/LINES/DRAINS: SKIN: + scalp lesion cw partially dreained small abscess. Skin temperature appropriate. Not diaphoretic. HEAD: Atraumatic. Normocephalic. EYES: Pupils equal and round and reactive. Extraocular motions intact. No scleral icterus. No injection or drainage. Fundi not examined. ENT: Nose without bleeding or purulent drainage. Oral mucosae without visible erythema, exudates, masses, or lesions. NECK: Trachea midline. Supple, nontender. CARDIOVASCULAR: Regular rate and rhythm without murmurs, gallops, or rubs. No JVD. Peripheral pulses symmetric. RESPIRATORY/CHEST: Symmetric, unlabored respirations. Clear to auscultation. Breath sounds equal bilaterally. No wheezes, rales, or rhonchi. Dressing in place over chest wall, intact GASTROINTESTINAL: Abdomen soft, non-tender, nondistended. No hepato-splenomegaly , or palpable masses. No guarding. Bowel sounds present. GENITOURINARY: Without palpable bladder distension. Keller catheter in place. MUSCULOSKELETAL: Extremities without clubbing, cyanosis, or edema. No joint tenderness or effusion noted. No calf tenderness. No mottling or clubbing. LYMPHATICS: No palpable cervical or supraclavicular adenopathy. NEUROLOGICAL: Awake and alert. Not follows commands. Aphasic PSYCHIATRIC: unable to assess Assessment & Plan Remarks MRSA sepsis Large chest wall abscess - sp I+D RLWE extensive DVT - cont vancomcin target trough 15-20 Helen Restrepo MD Dec 11, 2016 22:42
[2016-12-12] VITALS (8 sets, daily range): BP systolic 91–119; BP diastolic 52–69; PULSE 54–88; RESP 13–24; TEMP 96.1–98.1; O2SAT 94–100
[2016-12-12] MEDS: SODIUM CHLOR 0.9% 1000 ML INJ 1,000 ML IV SCH ×3 (03:28→23:43)
[2016-12-12 05:37] LABS: APTT (PATIENT) 45.6 SEC (24.3-30.1); INTERNATIONAL NORMALIZED RATIO 1.6 RATIO; PROTHROMBIN TIME - PATIENT 18.4 SEC (9.8-11.6)
[2016-12-12 06:00] LABS: ALKALINE PHOSPHATASE 82 U/L (45-117); ALT (GPT) 16 U/L (10-53); ANION GAP 8 MEQ/L (5-15); AST (GOT) 16 U/L (15-37); BICARBONATE 19.8 MEQ/L (21.0-32.0); BLOOD UREA NITROGEN 43 MG/DL (7-18); CHLORIDE 117 MEQ/L (98-107); GLOMERULAR FILTRATION RATE 46 ML/MIN (>89); POTASSIUM 3.8 MEQ/L (3.5-5.1); SODIUM (NA) 145 MEQ/L (136-145); TOTAL BILIRUBIN ADULT 0.4 MG/DL (0.2-1.0)
[2016-12-12 06:13] LABS: AUTOMATED NEUTROPHIL # 10.3 TH/MM3 (1.8-7.7); BASOPHIL % 0.2 % (0.0-2.0); HEMATOCRIT 24.9 % (35.0-46.0); HEMO FLAGS DIFF FINAL; LYMPHOCYTE # 0.5 TH/MM3 (1.0-4.8); MEAN CELL VOLUME 81.8 FL (80.0-100.0); MEAN CORPUSCULAR HEMOGLOBIN 27.3 PG (27.0-34.0); MEAN CORPUSCULAR HGB CONC 33.4 % (32.0-36.0); MONO % 1.9 % (0.0-8.0); NEUT % 92.9 % (16.0-70.0); PLATELET COUNT 193 TH/MM3 (150-450); RED BLOOD COUNT 3.05 MIL/MM3 (4.00-5.30); RED CELL DISTRIBUTION WIDTH 18.1 % (11.6-17.2); WHITE BLOOD COUNT 11.1 TH/MM3 (4.0-11.0)
--- NOTE | 2016-12-12 08:39 | PD.ONC.PN ---
Subjective Subjective Remarks Afebrile overnight. Per RN, no oozing from wound. Pt has no complaints. Objective Data Date Time Temp Pulse Resp B/P Pulse Ox O2 Delivery O2 Flow Rate FiO2 12/12/16 04:00 98.1 84 20 119/57 98 12/12/16 00:07 97.0 82 13 101/52 100 12/12/16 00:00 96.7 88 24 115/54 100 12/11/16 23:52 96.7 83 13 110/53 100 12/11/16 22:02 96.7 83 14 117/62 100 12/11/16 21:47 97.0 87 13 128/65 100 12/11/16 20:00 95.8 81 24 114/59 100 12/11/16 18:33 96.1 87 16 114/59 100 12/11/16 18:13 95.6 89 20 106/58 100 12/11/16 12:00 95.6 93 18 123/58 100 12/11/16 11:00 91 16 102/64 99 Nasal Cannula 4 12/11/16 10:45 91 16 119/67 99 Nasal Cannula 4 12/11/16 10:25 96.8 104 15 107/55 92 Nasal Cannula 4 Result Diagram: 12/12/16 0500 12/12/16 0500 Laboratory Results Laboratory Tests Test 12/11/16 12/11/16 12/12/16 09:02 11:15 05:00 White Blood Count 25.3 TH/MM3 11.1 TH/MM3 Red Blood Count 3.92 MIL/MM3 3.05 MIL/MM3 Hemoglobin 10.6 GM/DL 8.3 GM/DL Hematocrit 32.7 % 24.9 % Mean Corpuscular Volume 83.5 FL 81.8 FL Mean Corpuscular Hemoglobin 27.0 PG 27.3 PG Mean Corpuscular Hemoglobin 32.3 % 33.4 % Concent Red Cell Distribution Width 18.0 % 18.1 % Platelet Count 324 TH/MM3 193 TH/MM3 Mean Platelet Volume 7.6 FL 7.9 FL Neutrophils (%) (Auto) 95.3 % 92.9 % Lymphocytes (%) (Auto) 2.9 % 5.0 % Monocytes (%) (Auto) 1.5 % 1.9 % Eosinophils (%) (Auto) 0.2 % 0.0 % Basophils (%) (Auto) 0.1 % 0.2 % Neutrophils # (Auto) 24.1 TH/MM3 10.3 TH/MM3 Lymphocytes # (Auto) 0.7 TH/MM3 0.5 TH/MM3 Monocytes # (Auto) 0.4 TH/MM3 0.2 TH/MM3 Eosinophils # (Auto) 0.0 TH/MM3 0.0 TH/MM3 Basophils # (Auto) 0.0 TH/MM3 0.0 TH/MM3 CBC Comment AUTO DIFF DIFF FINAL Differential Total Cells 100 Counted Neutrophils % (Manual) 82 % Band Neutrophils % 13 % Lymphocytes % 1 % Monocytes % 4 % Neutrophils # (Manual) 24.0 TH/MM3 Nucleated Red Blood Cells 1 /100 WBC Differential Comment FINAL DIFF MANUAL Toxic Vacuolation PRESENT Platelet Estimate NORMAL Platelet Morphology Comment NORMAL Keratocytes OCC Prothrombin Time 56.1 SEC 18.4 SEC Prothromb Time International 4.7 RATIO 1.6 RATIO Ratio Activated Partial 52.9 SEC 45.6 SEC Thromboplast Time Fibrinogen 529 mg/dL Sodium Level 145 MEQ/L 145 MEQ/L Potassium Level 3.8 MEQ/L 3.8 MEQ/L Chloride Level 115 MEQ/L 117 MEQ/L Carbon Dioxide Level 17.8 MEQ/L 19.8 MEQ/L Anion Gap 12 MEQ/L 8 MEQ/L Blood Urea Nitrogen 56 MG/DL 43 MG/DL Creatinine 1.51 MG/DL 1.18 MG/DL Estimat Glomerular Filtration 34 ML/MIN 46 ML/MIN Rate Random Glucose 135 MG/DL 119 MG/DL Calcium Level 8.2 MG/DL 7.8 MG/DL Total Bilirubin 0.7 MG/DL 0.4 MG/DL Aspartate Amino Transf 14 U/L 16 U/L (AST/SGOT) Alanine Aminotransferase 15 U/L 16 U/L (ALT/SGPT) Alkaline Phosphatase 93 U/L 82 U/L Total Protein 5.6 GM/DL 5.7 GM/DL Albumin 1.8 GM/DL 1.9 GM/DL Blood Type A NEGATIVE A NEGATIVE Blood Bank Comment Hematology Comments Culture Results Microbiology Date/Time Procedure Status Source Growth 12/10/16 09:25 Aerobic Blood Culture - Preliminary Resulted Blood Peripheral Gram Positive Cocci 12/10/16 09:25 Anaerobic Blood Culture - Preliminary Resulted S. Aureus Mrsa 12/10/16 09:35 Aerobic Blood Culture - Preliminary Resulted Blood Peripheral NO GROWTH IN 1 DAY 12/10/16 09:35 Anaerobic Blood Culture - Final Resulted Blood Peripheral QNS - SEE AEROBE REPORT 12/11/16 10:15 Gram Stain - Final Resulted Wound Chest 12/11/16 10:15 Wound Culture Resulted Wound Chest Pending 12/11/16 10:15 Acid Fast Stain Received Wound Chest Pending 12/11/16 10:15 Mycobacterial Culture Received Wound Chest Pending 12/11/16 10:15 Fungal Smear - Final Resulted Wound Chest NO FUNGAL ELEMENTS SEEN. 12/11/16 10:15 Fungal Culture Resulted Wound Chest Pending Administered Medications Medications (Trade) Dose Ordered Sig/Cal Route PRN Reason Start Time Stop Time Status Last Admin Dose Admin Sodium Chloride (NS Flush) 2 ml BID IV FLUSH 12/08/16 09:00 12/11/16 07:15 Acetaminophen (Tylenol) 650 mg Q4H PRN PO TEMP > 100.4 12/07/16 23:15 12/10/16 13:58 Pantoprazole Sodium (Protonix) 40 mg DAILY PO 12/08/16 10:00 12/10/16 08:20 Escitalopram Oxalate (Lexapro) 10 mg DAILY PO 12/08/16 11:00 12/10/16 08:20 Folic Acid (Folate) 1 mg DAILY PO 12/08/16 11:00 12/10/16 08:20 Megestrol Acetate (Megace Liq) 400 mg DAILY PO 12/08/16 11:00 12/10/16 08:21 Memantine 5 mg 5 mg DAILY PO 12/08/16 12:00 12/10/16 08:20 Levofloxacin/ Dextrose 50 ml @ 50 mls/hr Q24H IV 12/11/16 09:00 12/11/16 07:15 Sodium Chloride 1,000 ml @ 100 mls/hr Q10H IV 12/10/16 09:45 12/12/16 03:28 Vancomycin HCl/ Sodium Chloride (Vancomycin Inj/ NS 250 ml Inj) 250 ml @ 250 mls/hr Q24H IV 12/11/16 16:00 12/11/16 15:52 Objective Remarks GENERAL: Chronically ill appearing older female, lying in bed asleep in no distress. Awakens easily to verbal stimuli. SKIN: Large bandage to chest wall. Dry and intact. No oozing noted. HEAD: Normocephalic. EYES: No injection or drainage. NECK: Supple, trachea midline. CARDIOVASCULAR: Regular rate and rhythm RESPIRATORY: Scattered rhonchi. GASTROINTESTINAL: Abdomen soft, non-tender, nondistended. EXTREMITIES: No cyanosis. SCD's to LLE. Assessment/Plan Problem List: (1) DVT (deep venous thrombosis) Status: Acute Plan: --Right lower extremity deep venous thrombosis diagnosed earlier this month. patient started on xarelto which has now been discontinued d/t hematoma+ abscess formation --Due to the bleeding she is not a candidate for anticoagulation. -- Currently she is not a candidate for IVC filter placement d/t infection. (2) Chest wall hematoma Status: Acute Plan: --CT angiogram showed NO PE; +large fluid collection in the left chest wall extending all the way down to the upper abdominal wall surrounding the left fifth rib. Radiologist felt that it is possibly a traumatic rib fracture causing a hematoma. --Underwent drainage which showed abscess formation on 12/11 (see MD operative note) (3) Coagulopathy Status: Acute Plan: --PT/PTT/INR prolonged. --on 12/11 3 units FFP ordered as well as Vitamin K 10mg SQ given -- Start heparin SQ once coags improved. Assessment 70y/o female a large MRSA abscess involving the L chest wall, s/p surgical debridement. Found to have a proximal R L ext DVT. At presentation had a partially compensated peripheral consumptive coagulopathy (DIC), now recovering with appropriate surgical debridement and IV antibiotics. Not a candidate for IVC filter placement at this time due to MRSA septicemia. Thrombocytopenia improved. Plan 1. Coagulopathy somewhat better. 2. Hold off on IVC filter placement d/t infection. 3. Started heparin 5000units SQ today. Will monitor closely and escalate anticoagulation to therapeutic if she tolerates the current dose without adverse effects such as bleeding. 4. US shows residual clot to RLE. Problem Qualifiers (1) Chest wall hematoma: Qualified Code: S20.212A - Chest wall hematoma, left, initial encounter Eliza Smith Dec 12, 2016 08:39 Cliff Odell MD Dec 12, 2016 17:56
[2016-12-12] MEDS: MEGESTROL ACETATE SUSP 400 MG/10 ML CUP PO SCH (08:43)
[2016-12-12] MEDS: PANTOPRAZOLE SODIUM 40 MG VIAL IV PUSH SCH (08:43)
[2016-12-12] MEDS: ESCITALOPRAM OXALATE 10 MG TAB PO SCH (08:43)
[2016-12-12] MEDS: MEMANTINE HCL 5 MG TAB PO SCH (08:43)
[2016-12-12] MEDS: FOLIC ACID 1 MG TAB PO SCH (08:43)
[2016-12-12] MEDS: LEVOFLOXACIN/DEXTROSE 250 MG/50 ML IV SCH (08:44)
[2016-12-12] MEDS: SODIUM CHLORIDE 0.9% FLUSH 10 ML FLUSH IV FLUSH SCH ×2 (09:00→21:00)
--- NOTE | 2016-12-12 10:11 | HHI.PR ---
Subjective History of Present Illness Patient confused no acute issue. high WBC count better now Blood culture grows MRSA have Sepsis on admission on vancomycin and Levaquin. no fever infectious disease input noted hematology and general surgery input noted for fluid collection left chest wall and upper abdomen. s/p fluid drainage which was pus s/p NG Tube in and on gavity for tube feeding Review of Systems Constitutional Constitutional Remarks unreliable ROS. Vitals/Results Intake & Output 12/11/16 12/11/16 12/12/16 15:00 23:00 07:00 Intake Total 900 ml 1552 ml Output Total 120 ml 150 ml Balance 780 ml 1402 ml Intake Oral 0 ml IV Total 1552 ml Other 900 ml Output Urine Total 120 ml 150 ml Bladder Scan Volume Amount 368 ml # Bowel Movements 0 Vital Signs Vital Signs Date Time Temp Pulse Resp B/P Pulse Ox O2 Delivery O2 Flow Rate FiO2 12/12/16 08:00 96.5 81 19 105/57 100 12/12/16 04:00 98.1 84 20 119/57 98 12/12/16 00:07 97.0 82 13 101/52 100 12/12/16 00:00 96.7 88 24 115/54 100 12/11/16 23:52 96.7 83 13 110/53 100 12/11/16 22:02 96.7 83 14 117/62 100 12/11/16 21:47 97.0 87 13 128/65 100 12/11/16 20:00 95.8 81 24 114/59 100 12/11/16 18:33 96.1 87 16 114/59 100 12/11/16 18:13 95.6 89 20 106/58 100 12/11/16 12:00 95.6 93 18 123/58 100 12/11/16 11:00 91 16 102/64 99 Nasal Cannula 4 12/11/16 10:45 91 16 119/67 99 Nasal Cannula 4 12/11/16 10:25 96.8 104 15 107/55 92 Nasal Cannula 4 CBC/BMP: 12/12/16 0500 12/12/16 0500 Lab Results Laboratory Tests Test 12/11/16 12/12/16 11:15 05:00 Blood Type A NEGATIVE White Blood Count 11.1 TH/MM3 Red Blood Count 3.05 MIL/MM3 Hemoglobin 8.3 GM/DL Hematocrit 24.9 % Mean Corpuscular Volume 81.8 FL Mean Corpuscular Hemoglobin 27.3 PG Mean Corpuscular Hemoglobin 33.4 % Concent Red Cell Distribution Width 18.1 % Platelet Count 193 TH/MM3 Mean Platelet Volume 7.9 FL Neutrophils (%) (Auto) 92.9 % Lymphocytes (%) (Auto) 5.0 % Monocytes (%) (Auto) 1.9 % Eosinophils (%) (Auto) 0.0 % Basophils (%) (Auto) 0.2 % Neutrophils # (Auto) 10.3 TH/MM3 Lymphocytes # (Auto) 0.5 TH/MM3 Monocytes # (Auto) 0.2 TH/MM3 Eosinophils # (Auto) 0.0 TH/MM3 Basophils # (Auto) 0.0 TH/MM3 CBC Comment DIFF FINAL Differential Comment Hematology Comments Prothrombin Time 18.4 SEC Prothromb Time International 1.6 RATIO Ratio Activated Partial 45.6 SEC Thromboplast Time Sodium Level 145 MEQ/L Potassium Level 3.8 MEQ/L Chloride Level 117 MEQ/L Carbon Dioxide Level 19.8 MEQ/L Anion Gap 8 MEQ/L Blood Urea Nitrogen 43 MG/DL Creatinine 1.18 MG/DL Estimat Glomerular Filtration 46 ML/MIN Rate Random Glucose 119 MG/DL Calcium Level 7.8 MG/DL Total Bilirubin 0.4 MG/DL Aspartate Amino Transf 16 U/L (AST/SGOT) Alanine Aminotransferase 16 U/L (ALT/SGPT) Alkaline Phosphatase 82 U/L Total Protein 5.7 GM/DL Albumin 1.9 GM/DL Microbiology Microbiology 12/11/16 Gram Stain - Final, Resulted 12/11/16 Wound Culture, Resulted Pending 12/11/16 Acid Fast Stain, Received Pending 12/11/16 Mycobacterial Culture, Received Pending 12/11/16 Fungal Smear - Final, Resulted NO FUNGAL ELEMENTS SEEN. 12/11/16 Fungal Culture, Resulted Pending Physical Exam General General Appearance: No Acute Distress, Comfortable Eyes Eye Exam: Pupils Equal, Pupils Reactive, Sclera White, Extraocular Movement Intact Throat Throat Exam: Oral Mucosa Archbold & Moist, Oral Pharynx Normal Neck Neck Exam: Neck Supple, Trachea Midline Pulmonary Resp Exam: Clear Bilaterally, Breath Sounds Equal, No Distress Cardiology CV Exam: Normal Sinus Rhythm Gastrointestinal/Abdomen GI Exam: Soft, Non-Tender, Bowel Sounds Present Integumentary Skin Exam: Warm, Dry Extremeties Extremities Exam: No Edema Neurologic Neuro Exam: Alert, Awake, Moving All Extremities Neuro Remarks Dementia. VTE Prophylaxis VTE Remarks Xarelto PUD Prophylasis PUD Prophylaxis: Protonix Assessment/Plan Assessment/Plan ASSESSMENT/PLAN 1. This is a 70-year female who came to the ER diagnosed with altered mental status, unknown etiology. checked a CT scan of the brain without contrast shows nothing acute and metabolic workup..noted neurology input noted have dementia. 2. Possible dementia. Further recommendation per neurology...on Nemenda. 3. Failure to thrive. The patient is on Megace. We will Monitor. S/P NG Tube in and on Gavity for tube feeding. nutrionest on board. 4. History of right lower extremity DVT. The patient was on Xarelto 15 mg twice a day which is on hold . on heparin now. 5. Hypokalemia. resolved. 6. Chest pain, left-sided. Troponin less than 0.02 with Low creatinine kinase, atypical chest pain. 7. Left fifth rib costochondral fracture with a large collection of fluid in the chest and upper abdominal wall. S/P Drainage was turned out to be Pus. 8. The patient was on a blood thinner, Xarelto. Very sticky situation with DVT and a possible bleed. We will observe closely. hold Xarelto. hematology and general surgery input noted for fluid collection left chest wall and upper abdomen. s/p fluid drainage hematology agree with holding Xarelto. 9. Thrombocytosis, we will monitor. 10. Leukocytosis. We will monitor..better. 11. Hearing problem. 12. History of smoking. Advised to quit. 13. Depression. Continue with Lexapro 10 mg p.o. daily. 14. DVT prophylaxis. The patient was on Xarelto. 15. GI prophylaxis, Protonix 40 mg p.o. daily. 16. Sepsis on admission no fever no pneumonia on CT chest and Urine did not shows UTI..blood culture grows MRSA Sepsis on admission on vancomycin and Levaquin. infectious disease input noted Check CBC with diff CMP in AM. We are going to manage the patient on a daily basis and make recommendations on a daily basis. Discussed Condition with: Patient Ren Gonzalez MD Dec 12, 2016 10:11 Ren Gonzalez MD Dec 12, 2016 10:11
--- NOTE | 2016-12-12 14:50 | HHI.PR ---
Subjective Subjective Notes The patient was sleeping and by other reports was confused today. She appears to be comfortable. Objective Vitals/I&O Vital Signs Date Time Temp Pulse Resp B/P Pulse Ox O2 Delivery O2 Flow Rate FiO2 12/12/16 14:26 100 3.00 12/12/16 12:00 97.0 78 18 112/61 12/11/16 11:00 Nasal Cannula Labs Laboratory Tests Test 12/12/16 05:00 White Blood Count 11.1 Red Blood Count 3.05 Hemoglobin 8.3 Hematocrit 24.9 Mean Corpuscular Volume 81.8 Mean Corpuscular Hemoglobin 27.3 Mean Corpuscular Hemoglobin 33.4 Concent Red Cell Distribution Width 18.1 Platelet Count 193 Mean Platelet Volume 7.9 Neutrophils (%) (Auto) 92.9 Lymphocytes (%) (Auto) 5.0 Monocytes (%) (Auto) 1.9 Eosinophils (%) (Auto) 0.0 Basophils (%) (Auto) 0.2 Neutrophils # (Auto) 10.3 Lymphocytes # (Auto) 0.5 Monocytes # (Auto) 0.2 Eosinophils # (Auto) 0.0 Basophils # (Auto) 0.0 CBC Comment DIFF FINAL Differential Comment Hematology Comments Prothrombin Time 18.4 Prothromb Time International 1.6 Ratio Activated Partial 45.6 Thromboplast Time Sodium Level 145 Potassium Level 3.8 Chloride Level 117 Carbon Dioxide Level 19.8 Anion Gap 8 Blood Urea Nitrogen 43 Creatinine 1.18 Estimat Glomerular Filtration 46 Rate Random Glucose 119 Calcium Level 7.8 Total Bilirubin 0.4 Aspartate Amino Transf 16 (AST/SGOT) Alanine Aminotransferase 16 (ALT/SGPT) Alkaline Phosphatase 82 Total Protein 5.7 Albumin 1.9 Date/Time Procedure Status Source Growth 12/11/16 10:15 Gram Stain - Final Resulted Wound Chest 12/11/16 10:15 Wound Culture Resulted Wound Chest Pending 12/11/16 10:15 Fungal Smear - Final Resulted Wound Chest NO FUNGAL ELEMENTS SEEN. 12/11/16 10:15 Fungal Culture Resulted Wound Chest Pending 12/11/16 10:15 Acid Fast Stain Received Wound Chest Pending 12/11/16 10:15 Mycobacterial Culture Received Wound Chest Pending 12/10/16 09:35 Aerobic Blood Culture - Preliminary Resulted Blood Peripheral NO GROWTH IN 2 DAYS 12/10/16 09:35 Anaerobic Blood Culture - Final Resulted Blood Peripheral QNS - SEE AEROBE REPORT Narrative Exam Area of I&D is clean and dry at this point. A/P Assessment and Plan Impression: Status post incision and drainage of large chest wall abscess. She is stable and improving. Plan: Continue wound care as per Dr. Mena. Cl Lee MD Dec 12, 2016 14:50
[2016-12-12] MEDS: HEPARIN SODIUM - SQ 10,000 UNITS/ML VIAL SQ SCH ×2 (15:48→21:51)
--- NOTE | 2016-12-12 15:52 | HHI.IDPN ---
Subjective Subjective Remarks Pt is now awake, talking, though confused She is afebrile WBC markedly improved (from 25 K to 11K) diminishe UOP Antibiotics vancomycin Allergies: Coded Allergies: Codeine (Verified Allergy, Severe, Anaphylaxis-PT UNSURE OF ALLERGY, ) Penicillin (Verified Allergy, Intermediate, Anaphylaxis, 11/23/16) Objective . Vital Signs Date Time Temp Pulse Resp B/P Pulse Ox O2 Delivery O2 Flow Rate FiO2 12/12/16 14:26 100 3.00 12/12/16 12:00 97.0 78 18 112/61 100 12/12/16 08:00 96.5 81 19 105/57 100 12/12/16 04:00 98.1 84 20 119/57 98 12/12/16 00:07 97.0 82 13 101/52 100 12/12/16 00:00 96.7 88 24 115/54 100 12/11/16 23:52 96.7 83 13 110/53 100 12/11/16 22:02 96.7 83 14 117/62 100 12/11/16 21:47 97.0 87 13 128/65 100 12/11/16 20:00 95.8 81 24 114/59 100 12/11/16 18:33 96.1 87 16 114/59 100 12/11/16 18:13 95.6 89 20 106/58 100 12/11/16 12/11/16 12/12/16 15:00 23:00 07:00 Intake Total 900 ml 1552 ml Output Total 120 ml 150 ml Balance 780 ml 1402 ml Intake Oral 0 ml IV Total 1552 ml Other 900 ml Output Urine Total 120 ml 150 ml Bladder Scan Volume Amount 368 ml # Bowel Movements 0 . Laboratory Tests Test 12/11/16 12/12/16 09:02 05:00 White Blood Count 25.3 TH/MM3 11.1 TH/MM3 Red Blood Count 3.92 MIL/MM3 3.05 MIL/MM3 Hemoglobin 10.6 GM/DL 8.3 GM/DL Hematocrit 32.7 % 24.9 % Mean Corpuscular Volume 83.5 FL 81.8 FL Mean Corpuscular Hemoglobin 27.0 PG 27.3 PG Mean Corpuscular Hemoglobin 32.3 % 33.4 % Concent Red Cell Distribution Width 18.0 % 18.1 % Platelet Count 324 TH/MM3 193 TH/MM3 Mean Platelet Volume 7.6 FL 7.9 FL Neutrophils (%) (Auto) 95.3 % 92.9 % Lymphocytes (%) (Auto) 2.9 % 5.0 % Monocytes (%) (Auto) 1.5 % 1.9 % Eosinophils (%) (Auto) 0.2 % 0.0 % Basophils (%) (Auto) 0.1 % 0.2 % Neutrophils # (Auto) 24.1 TH/MM3 10.3 TH/MM3 Lymphocytes # (Auto) 0.7 TH/MM3 0.5 TH/MM3 Monocytes # (Auto) 0.4 TH/MM3 0.2 TH/MM3 Eosinophils # (Auto) 0.0 TH/MM3 0.0 TH/MM3 Basophils # (Auto) 0.0 TH/MM3 0.0 TH/MM3 CBC Comment AUTO DIFF DIFF FINAL Differential Total Cells 100 Counted Neutrophils % (Manual) 82 % Band Neutrophils % 13 % Lymphocytes % 1 % Monocytes % 4 % Neutrophils # (Manual) 24.0 TH/MM3 Nucleated Red Blood Cells 1 /100 WBC Differential Comment FINAL DIFF MANUAL Toxic Vacuolation PRESENT Platelet Estimate NORMAL Platelet Morphology Comment NORMAL Keratocytes OCC Hematology Comments Laboratory Tests Test 12/11/16 12/11/16 12/12/16 07:55 09:02 05:00 Lactic Acid Level 3.4 mmol/L Sodium Level 145 MEQ/L 145 MEQ/L Potassium Level 3.8 MEQ/L 3.8 MEQ/L Chloride Level 115 MEQ/L 117 MEQ/L Carbon Dioxide Level 17.8 MEQ/L 19.8 MEQ/L Anion Gap 12 MEQ/L 8 MEQ/L Blood Urea Nitrogen 56 MG/DL 43 MG/DL Creatinine 1.51 MG/DL 1.18 MG/DL Estimat Glomerular Filtration 34 ML/MIN 46 ML/MIN Rate Random Glucose 135 MG/DL 119 MG/DL Calcium Level 8.2 MG/DL 7.8 MG/DL Total Bilirubin 0.7 MG/DL 0.4 MG/DL Aspartate Amino Transf 14 U/L 16 U/L (AST/SGOT) Alanine Aminotransferase 15 U/L 16 U/L (ALT/SGPT) Alkaline Phosphatase 93 U/L 82 U/L Total Protein 5.6 GM/DL 5.7 GM/DL Albumin 1.8 GM/DL 1.9 GM/DL Microbiology Date/Time Procedure Status Source Growth 12/10/16 09:25 Aerobic Blood Culture - Preliminary Resulted Blood Peripheral S. Aureus Mrsa 12/10/16 09:25 Anaerobic Blood Culture - Preliminary Resulted S. Aureus Mrsa 12/10/16 09:35 Aerobic Blood Culture - Preliminary Resulted Blood Peripheral NO GROWTH IN 2 DAYS 12/10/16 09:35 Anaerobic Blood Culture - Final Resulted Blood Peripheral QNS - SEE AEROBE REPORT 12/11/16 10:15 Gram Stain - Final Resulted Wound Chest 12/11/16 10:15 Wound Culture - Preliminary Resulted Group A Beta Strep 12/11/16 10:15 Acid Fast Stain Received Wound Chest Pending 12/11/16 10:15 Mycobacterial Culture Received Wound Chest Pending 12/11/16 10:15 Fungal Smear - Final Resulted Wound Chest NO FUNGAL ELEMENTS SEEN. 12/11/16 10:15 Fungal Culture Resulted Wound Chest Pending Imaging Last Impressions Lower Extremity Ultrasound 12/11/16 0000 Signed Impressions: Service Date/Time: Sunday, December 11, 2016 13:49 - CONCLUSION: Venous deep venous thrombosis on the right extending into the mid common femoral vein. This begins in the posterior tibia and extends into the popliteal vein. Sean Shabazz MD FACR Chest X-Ray 12/11/16 0000 Signed Impressions: Service Date/Time: Sunday, December 11, 2016 01:18 - CONCLUSION: No acute disease. Ck Cardoza Jr., MD Abdomen X-Ray 12/11/16 0000 Signed Impressions: Service Date/Time: Sunday, December 11, 2016 17:10 - CONCLUSION: Nonspecific abdomen. KAlyssia Hyman MD Head CT 12/08/16 0000 Signed Impressions: Service Date/Time: Thursday, December 08, 2016 11:34 - CONCLUSION: 1. No acute findings in the brain. 2. Focal scalp thickening high midline frontal region. No skull fracture seen. Ck Power MD CT Angiography 12/07/16 1844 Signed Impressions: Service Date/Time: Wednesday, December 07, 2016 19:40 - CONCLUSION: 1. No pulmonary embolus. 2. Limited evaluation otherwise but a fracture has clearly developed near the costochondral junction of the left fifth rib and surrounded by a large collection of fluid in the chest and upper abdominal wall, all new. A traumatic fracture with hematoma/seroma is felt most likely. I don't see a discrete mass or other clear etiology for any pathologic fracture. I also don't clearly see evidence of active bleeding. 3. Small, dependently layering and fairly low attenuation left pleural effusion now demonstrated. Nithin Hurley MD Physical Exam CONSTITUTIONAL/GENERAL: This is an adequately nourished patient, in no apparent distress. TUBES/LINES/DRAINS: SKIN: + scalp lesion cw partially dreained small abscess. Upper abdominal wall/ lower chest wall has a large deep wounf about 5 cm with indurated necrotic edges and minimal odorless serosangious dc Syurrounding skin is erythamtous and tender to palpation HEAD: Atraumatic. Normocephalic. EYES: Pupils equal and round and reactive. Extraocular motions intact. No scleral icterus. No injection or drainage. Fundi not examined. ENT: Nose without bleeding or purulent drainage. Oral mucosae without visible erythema, exudates, masses, or lesions. NECK: Trachea midline. Supple, nontender. CARDIOVASCULAR: Regular rate and rhythm without murmurs, gallops, or rubs. No JVD. Peripheral pulses symmetric. RESPIRATORY/CHEST: Symmetric, unlabored respirations. Clear to auscultation. Breath sounds equal bilaterally. No wheezes, rales, or rhonchi. GASTROINTESTINAL: Abdomen soft, non-tender, nondistended. No hepato-splenomegaly , or palpable masses. No guarding. Bowel sounds present. GENITOURINARY: Without palpable bladder distension. Keller catheter in place. MUSCULOSKELETAL: Extremities without clubbing, cyanosis, or edema. No joint tenderness or effusion noted. No calf tenderness. No mottling or clubbing. LYMPHATICS: No palpable cervical or supraclavicular adenopathy. NEUROLOGICAL: Awake and alert. Not follows commands. + Incoherent speech PSYCHIATRIC: calm Assessment & Plan Remarks MRSA sepsis -? source Large chest wall abscess, group A beta strep - sp I+D RLE extensive DVT - cont vancomcin target trough 15-20 - 2 D echo - monitor all P blood clx Helen Restrepo MD Dec 12, 2016 15:52
[2016-12-12] MEDS: VANCOMYCIN 1,000 MG/NS 250 ML IV SCH ×2 (18:20)
[2016-12-12] MEDS ORDERED: ACETAMINOPHEN/HYDROcodone 325 MG/5 MG TAB PO PRN (20:45)
[2016-12-12] MEDS ORDERED: ACETAMINOPHEN/HYDROcodone 325 MG/5 MG TAB PO SCH (21:00)
[2016-12-13] VITALS (14 sets, daily range): BP systolic 67–114; BP diastolic 37–67; PULSE 50–116; RESP 16–28; TEMP 97–98.8; O2SAT 86–100
[2016-12-13 07:51] LABS: AUTOMATED NEUTROPHIL # 5.2 TH/MM3 (1.8-7.7); EOSINOPHIL % 0.6 % (0.0-4.0); HEMO FLAGS DIFF FINAL; LYMPH % 14.1 % (9.0-44.0); LYMPHOCYTE # 0.9 TH/MM3 (1.0-4.8); MEAN CELL VOLUME 82.9 FL (80.0-100.0); MEAN CORPUSCULAR HEMOGLOBIN 27.8 PG (27.0-34.0); MEAN CORPUSCULAR HGB CONC 33.5 % (32.0-36.0); MONO % 4.9 % (0.0-8.0); NEUT % 80.4 % (16.0-70.0); PLATELET COUNT 186 TH/MM3 (150-450); RED BLOOD COUNT 3.13 MIL/MM3 (4.00-5.30); RED CELL DISTRIBUTION WIDTH 17.6 % (11.6-17.2); WHITE BLOOD COUNT 6.5 TH/MM3 (4.0-11.0)
[2016-12-13 08:05] LABS: ALKALINE PHOSPHATASE 77 U/L (45-117); ALT (GPT) 38 U/L (10-53); ANION GAP 8 MEQ/L (5-15); AST (GOT) 53 U/L (15-37); BICARBONATE 24.8 MEQ/L (21.0-32.0); BLOOD UREA NITROGEN 33 MG/DL (7-18); CHLORIDE 115 MEQ/L (98-107); GLOMERULAR FILTRATION RATE 78 ML/MIN (>89); POTASSIUM 3.1 MEQ/L (3.5-5.1); SODIUM (NA) 148 MEQ/L (136-145); TOTAL BILIRUBIN ADULT 0.3 MG/DL (0.2-1.0)
[2016-12-13] MEDS: LEVOFLOXACIN/DEXTROSE 250 MG/50 ML IV SCH (08:13)
[2016-12-13] MEDS: MEGESTROL ACETATE SUSP 400 MG/10 ML CUP PO SCH (08:14)
[2016-12-13] MEDS: MEMANTINE HCL 5 MG TAB PO SCH (08:14)
[2016-12-13] MEDS: PANTOPRAZOLE SODIUM 40 MG VIAL IV PUSH SCH (08:14)
[2016-12-13] MEDS: ESCITALOPRAM OXALATE 10 MG TAB PO SCH (08:14)
[2016-12-13] MEDS: FOLIC ACID 1 MG TAB PO SCH (08:14)
[2016-12-13] MEDS: HEPARIN SODIUM - SQ 10,000 UNITS/ML VIAL SQ SCH (08:15)
--- NOTE | 2016-12-13 08:21 | PD.ONC.PN ---
Subjective Subjective Remarks Afebrile overnight. Pt resting in bed asleep on approach. She awakens easily but quickly falls back to sleep. Per RN there has been no bleeding. Objective Data Date Time Temp Pulse Resp B/P Pulse Ox O2 Delivery O2 Flow Rate FiO2 12/13/16 05:30 97.1 88 19 110/64 94 12/13/16 00:00 98.8 82 19 108/67 95 12/12/16 20:45 97.7 80 20 105/69 94 12/12/16 16:00 96.1 86 19 119/61 100 12/12/16 14:26 100 3.00 12/12/16 12:00 97.0 78 18 112/61 100 12/13/16 12/13/16 12/13/16 07:00 15:00 23:00 Intake Total 1760 ml Output Total 800 ml Balance 960 ml Result Diagram: 12/13/16 0649 12/13/16 0649 Laboratory Results Laboratory Tests Test 12/13/16 06:49 White Blood Count 6.5 TH/MM3 Red Blood Count 3.13 MIL/MM3 Hemoglobin 8.7 GM/DL Hematocrit 26.0 % Mean Corpuscular Volume 82.9 FL Mean Corpuscular Hemoglobin 27.8 PG Mean Corpuscular Hemoglobin 33.5 % Concent Red Cell Distribution Width 17.6 % Platelet Count 186 TH/MM3 Mean Platelet Volume 7.5 FL Neutrophils (%) (Auto) 80.4 % Lymphocytes (%) (Auto) 14.1 % Monocytes (%) (Auto) 4.9 % Eosinophils (%) (Auto) 0.6 % Basophils (%) (Auto) 0.0 % Neutrophils # (Auto) 5.2 TH/MM3 Lymphocytes # (Auto) 0.9 TH/MM3 Monocytes # (Auto) 0.3 TH/MM3 Eosinophils # (Auto) 0.0 TH/MM3 Basophils # (Auto) 0.0 TH/MM3 CBC Comment DIFF FINAL Differential Comment Sodium Level 148 MEQ/L Potassium Level 3.1 MEQ/L Chloride Level 115 MEQ/L Carbon Dioxide Level 24.8 MEQ/L Anion Gap 8 MEQ/L Blood Urea Nitrogen 33 MG/DL Creatinine 0.74 MG/DL Estimat Glomerular Filtration 78 ML/MIN Rate Random Glucose 110 MG/DL Calcium Level 7.6 MG/DL Total Bilirubin 0.3 MG/DL Aspartate Amino Transf 53 U/L (AST/SGOT) Alanine Aminotransferase 38 U/L (ALT/SGPT) Alkaline Phosphatase 77 U/L Total Protein 5.2 GM/DL Albumin 1.9 GM/DL Culture Results Microbiology Date/Time Procedure Status Source Growth 12/10/16 09:25 Aerobic Blood Culture - Preliminary Resulted Blood Peripheral S. Aureus Mrsa 12/10/16 09:25 Anaerobic Blood Culture - Preliminary Resulted S. Aureus Mrsa 12/10/16 09:35 Aerobic Blood Culture - Preliminary Resulted Blood Peripheral NO GROWTH IN 2 DAYS 12/10/16 09:35 Anaerobic Blood Culture - Final Resulted Blood Peripheral QNS - SEE AEROBE REPORT 12/11/16 10:15 Gram Stain - Final Resulted Wound Chest 12/11/16 10:15 Wound Culture - Preliminary Resulted Group A Beta Strep 12/11/16 10:15 Acid Fast Stain Received Wound Chest Pending 12/11/16 10:15 Mycobacterial Culture Received Wound Chest Pending 12/11/16 10:15 Fungal Smear - Final Resulted Wound Chest NO FUNGAL ELEMENTS SEEN. 12/11/16 10:15 Fungal Culture Resulted Wound Chest Pending Administered Medications Medications (Trade) Dose Ordered Sig/Cal Route PRN Reason Start Time Stop Time Status Last Admin Dose Admin Sodium Chloride (NS Flush) 2 ml BID IV FLUSH 12/08/16 09:00 12/11/16 07:15 Acetaminophen (Tylenol) 650 mg Q4H PRN PO TEMP > 100.4 12/07/16 23:15 12/10/16 13:58 Escitalopram Oxalate (Lexapro) 10 mg DAILY PO 12/08/16 11:00 12/12/16 08:43 Folic Acid (Folate) 1 mg DAILY PO 12/08/16 11:00 12/12/16 08:43 Megestrol Acetate (Megace Liq) 400 mg DAILY PO 12/08/16 11:00 12/12/16 08:43 Memantine 5 mg 5 mg DAILY PO 12/08/16 12:00 12/12/16 08:43 Levofloxacin/ Dextrose 50 ml @ 50 mls/hr Q24H IV 12/11/16 09:00 12/12/16 08:44 Sodium Chloride 1,000 ml @ 100 mls/hr Q10H IV 12/10/16 09:45 12/12/16 23:43 Vancomycin HCl/ Sodium Chloride (Vancomycin Inj/ NS 250 ml Inj) 250 ml @ 250 mls/hr Q24H IV 12/11/16 16:00 12/12/16 18:20 Pantoprazole Sodium (Protonix Inj) 40 mg Q24H IV PUSH 12/12/16 09:00 12/12/16 08:43 Heparin Sodium (Porcine) (Heparin Inj) 5,000 units Q12HR SQ 12/12/16 14:00 12/12/16 21:51 Acetaminophen/ Hydrocodone Bitart ([place] 5-325 Mg) 1 tab BID PRN PO WITH DRESSING CHANGES 12/12/16 20:45 12/13/16 05:16 Objective Remarks GENERAL: Chronically ill appearing older female, lying in bed asleep in no distress. Awakens easily to verbal stimuli. SKIN: Large bandage to chest wall. Dry and intact. No oozing noted. HEAD: Normocephalic. EYES: No injection or drainage. NECK: Supple, trachea midline. CARDIOVASCULAR: Regular rate and rhythm. RESPIRATORY: Scattered rhonchi. On 3L NC. Breathing unlabored. GASTROINTESTINAL: Abdomen soft, non-tender, nondistended. NG tube with TF @ 30ml /hr. Tolerating per RN. EXTREMITIES: No cyanosis. SCD's to LLE. Assessment/Plan Problem List: (1) DVT (deep venous thrombosis) Status: Acute Plan: --Right lower extremity deep venous thrombosis diagnosed earlier this month. patient started on Xarelto which has now been discontinued d/t hematoma+ abscess formation --Due to the bleeding she is not a candidate for anticoagulation. -- Currently she is not a candidate for IVC filter placement d/t infection. (2) Chest wall hematoma Status: Acute Plan: --CT angiogram showed NO PE; +large fluid collection in the left chest wall extending all the way down to the upper abdominal wall surrounding the left fifth rib. Radiologist felt that it is possibly a traumatic rib fracture causing a hematoma. --Underwent drainage which showed abscess formation on 12/11 (see MD operative note) (3) Coagulopathy Status: Acute Plan: --PT/PTT prolonged. --on 12/11 3 units FFP ordered as well as Vitamin K 10mg SQ given -- Heparin started on 12/12. -- Monitor for bleeding. Assessment 70y/o female a large MRSA abscess involving the L chest wall, s/p surgical debridement. Found to have a proximal R L ext DVT. At presentation had a partially compensated peripheral consumptive coagulopathy (DIC), now recovering with appropriate surgical debridement and IV antibiotics. Not a candidate for IVC filter placement at this time due to MRSA septicemia. Thrombocytopenia improved. Plan 1. Coags normalizing. 2. Heparin started yesterday for anticoagulation d/t RLE blood clot. 3. No bleeding; will increase heparin to TID today. 4. Monitor CBC, coags. Problem Qualifiers (1) Chest wall hematoma: Qualified Code: S20.212A - Chest wall hematoma, left, initial encounter LuisEliza Darek METCALF Dec 13, 2016 08:21
[2016-12-13] MEDS: SODIUM CHLOR 0.9% 1000 ML INJ 1,000 ML IV SCH (08:37)
[2016-12-13] MEDS: SODIUM CHLORIDE 0.9% FLUSH 10 ML FLUSH IV FLUSH SCH ×2 (09:00→21:00)
[2016-12-13 10:22] LABS: APTT (PATIENT) 33.4 SEC (24.3-30.1); INTERNATIONAL NORMALIZED RATIO 1.1 RATIO; PROTHROMBIN TIME - PATIENT 12.5 SEC (9.8-11.6)
[2016-12-13] MEDS: ACETAMINOPHEN 325 MG TAB PO PRN (11:01)
[2016-12-13 12:04] LABS: BLOOD GAS BASE EXCESS -1.3 mmol/L (-2-2); BLOOD GAS CARBOXYHEMOGLOBIN 0.7 % (0-4); BLOOD GAS HCO3 24 mmol/L (22-26); BLOOD GAS METHEMOGLOBIN 0.8 % (0-2); BLOOD GAS O2 HGB SATURATION 85 % (90-100); BLOOD GAS OXYGEN CONTENT 14.1 Vol % (12.0-20.0); BLOOD GAS PCO2 46 mmHg (38-42); BLOOD GAS PO2 57 mmHg (61-120); BLOOD GAS TOTAL HGB 11.8 G/DL (12.0-16.0); TEMP CORR TO 98.6
[2016-12-13 12:05] LABS: CRITICAL VALUE YES
[2016-12-13 12:06] LABS: DRAW SITE RT RADIAL; FIO2 100 %; LITER FLOW 15 L/M; NUMBER OF ARTERIAL PUNCTURES 1; OXYGEN DEVICE SM; STAT YES; ULNAR PULSE PRESENT
--- NOTE | 2016-12-13 12:28 | RADRPT ---
EXAM DATE/TIME: 12/13/2016 11:27 [facility] COMPARISON: CHEST SINGLE AP, December 07, 2016, 18:56. INDICATIONS : Evaluate for placement of NG tube and for aspiration. MEDICAL HISTORY : None. SURGICAL HISTORY : Cholecystectomy. Appendectomy. Hysterectomy. ENCOUNTER: Initial ACUITY: 1 day PAIN SCORE: 5/10 LOCATION: Bilateral chest FINDINGS: An NG tube is in place with its tip in the stomach. The heart size is normal. There is increased de nsity identified at the right lung base. The left lung is clear. CONCLUSION: 1. Right lower lobe consolidation. 2. NG tube in place with its tip in the stomach. Nithin Kee MD on December 13, 2016 at 12:16 Board Certified Radiologist. This report was verified electronically.
[2016-12-13] MEDS ORDERED: RESP: ALBUTEROL 2.5 MG/IPRATROPIUM 0.5 MG NEB (PRN) NEB (13:15)
--- NOTE | 2016-12-13 13:49 | PD.CONS ---
[facility] Service Critical Care Medicine Consult Requested By Primary Care Physician Ren Gonzalez MD History of Present Illness 70 year-old female with a medical history significant for moderate dementia, DVT for which she was recently started on Xarelto who was seen by Dr. Bhardwaj in his office on 12/08 or shortness of breath and weakness and failure to thrive. She was advised to come to the ER and presented next day on 12/09 to [facility]. She was found to have a large hematoma involving her left chest wall at the side of her rib fracture and her anticoagulation was discontinued. Patient was evaluated by ID and hematology. She was found to have MRSA bacteremia and was septic. Workup reveal infected hematoma involving chest wall and she underwent I&D of infected hematoma on 12/[address] Mena. Subsequently she had been on the floor with an NG tube for tube feeds. This afternoon patient developed worsening shortness of breath with question of aspiration for which a rapid response was called. Patient's O2 sats were in the 80s and she was started on a nonrebreather facemask and transferred to the ICU. I was contacted by Dr. Bhardwaj who requested critical care consult for worsening respiratory failure. I evaluated the patient immediately on her arrival to the ICU. She appeared to be dyspneic using accessory muscles of respiration. She was given a stat nebulizer treatment with DuoNeb's with which her O2 sats came up in the 90s. Her NG tube was connected to suction. Chest x-ray done following rapid response revealed minimal right basilar infiltrate. I subsequently spoke with patient's son regarding her history and according to him she has not been doing well for the last few years since her 's and has been"wanting to ". She also has worsening memory problems/ dementia. She had continued to smoke up to the day of admission on 12/09. History was obtained by reviewing records and discussion with Dr. Gonzalez, patient 's family and rapid response team. ROS - General Review of Systems ROS Limitations: Patient confused and disoriented to give detailed review of systems. She did admit to shortness of breath. PFSH Past Family Social History Allergies: Coded Allergies: Codeine (Verified Allergy, Severe, Anaphylaxis-PT UNSURE OF ALLERGY, ) Penicillin (Verified Allergy, Intermediate, Anaphylaxis, 11/23/16) Past Medical History Past Medical History Cancer: No Cardiovascular Problems: No Diminished Hearing: Yes Endocrine: No Genitourinary: No Immune Disorder: No Musculoskeletal: Yes (sciatica) Neurologic: No Psychiatric: No Reproductive: Yes (HYSTERECTOMY) Respiratory: No Menopausal: Yes Past Surgical History Past Surgical History Appendectomy: Yes Cholecystectomy: Yes Ear Surgery: No Endocrine Surgery: No Eye Surgery: No Gynecologic Surgery: Yes (HYSTERECTOMY) Hysterectomy: Yes Oral Surgery: No Tonsillectomy: Yes Reported Medications Reported Meds & Prescriptions Reported Meds & Active Scripts Home meds Folate (Folic Acid) 1 Mg Tab 1 Mg PO DAILY Escitalopram (Escitalopram Oxalate) 10 Mg Tab 10 Mg PO DAILY Reported Xarelto (Rivaroxaban) 15 Mg Tab 15 Mg PO Q12HR Megace Liq (Megestrol Acetate) 40 Mg/Ml Susp 400 Mg PO DAILY Excedrin Extra Strength (Awkwwqr-Xmfpxzetwnocf-Qdufxwwt) 250-250-65 Mg Tab Unknown Dose PO DAILY PRN Social History Social History Alcohol Use: No Tobacco Use: Yes (quit smoking yesterday) Substance Use: No Allergies-Medications Allergies-Medications (Allergen,Severity, Reaction): Coded Allergies: Codeine (Verified Allergy, Severe, Anaphylaxis-PT UNSURE OF ALLERGY, ) Penicillin (Verified Allergy, Intermediate, Anaphylaxis, 11/23/16) Current Medications Medications (Trade) Dose Ordered Sig/Cal Route Start Time Stop Time Status Last Admin (NS Flush) 2 ml UNSCH PRN IV FLUSH 12/07/16 23:15 (NS Flush) 2 ml BID IV FLUSH 12/08/16 09:00 12/11/16 07:15 (Tylenol) 650 mg Q4H PRN PO 12/07/16 23:15 12/13/16 11:01 (Zofran Inj) 4 mg Q6H PRN IVP 12/07/16 23:15 (Dulcolax Supp) 10 mg DAILY PRN RECTAL 12/07/16 23:15 (Senokot) 17.2 mg Q12H PRN PO 12/07/16 23:15 (Narcan Inj) 0.4 mg UNSCH PRN IV 12/07/16 23:15 (Lexapro) 10 mg DAILY PO 12/08/16 11:00 12/13/16 08:14 (Folate) 1 mg DAILY PO 12/08/16 11:00 12/13/16 08:14 (Megace Liq) 400 mg DAILY PO 12/08/16 11:00 12/13/16 08:14 Memantine 5 mg 5 mg DAILY PO 12/08/16 12:00 12/13/16 08:14 Levofloxacin/ Dextrose 50 ml @ 50 mls/hr Q24H IV 12/11/16 09:00 12/13/16 08:13 Sodium Chloride 1,000 ml @ 100 mls/hr Q10H IV 12/10/16 09:45 12/13/16 08:37 Lactated Ringer's 1,000 ml @ 30 mls/hr Q24H PRN IV 12/11/16 00:15 12/14/16 00:14 Sodium Chloride 500 ml @ 30 mls/hr [id number] PRN IV 12/11/16 00:15 12/14/16 00:14 Pharmacy Profile Note 0 ml @ 0 mls/hr UNSCH OTHER 12/11/16 07:45 (Vancomycin Inj/ NS 250 ml Inj) 250 ml @ 250 mls/hr Q24H IV 12/11/16 16:00 12/12/16 18:20 Miscellaneous Information SPECIFIC LAB TO BE JOYCE... ONCE ONCE .XX 12/14/16 15:45 12/14/16 15:46 (Protonix Inj) 40 mg Q24H IV PUSH 12/12/16 09:00 12/13/16 08:14 (Independence 5-325 Mg) 1 tab BID PRN PO 12/12/16 20:45 12/13/16 05:16 (Heparin Inj) 5,000 units Q8HR SQ 12/13/16 14:00 UNV (SoluMEDROL INJ) 125 mg ONCE ONCE IV PUSH 12/13/16 13:00 12/13/16 13:01 UNV (SoluMEDROL INJ) 80 mg Q8HR IV PUSH 12/13/16 22:00 UNV Physical Exam Vital Signs Vital Signs Date Time Temp Pulse Resp B/P Pulse Ox O2 Delivery O2 Flow Rate FiO2 12/13/16 12:31 92 Non-Rebreather 15.00 100 12/13/16 09:32 95 Nasal Cannula 3.00 12/13/16 08:00 97.8 74 16 101/55 94 12/13/16 05:30 97.1 88 19 110/64 94 12/13/16 00:00 98.8 82 19 108/67 95 12/12/16 20:45 97.7 80 20 105/69 94 12/12/16 16:00 96.1 86 19 119/61 100 12/12/16 14:26 100 3.00 Physical Exam HEENT/Neuro: Pallor present, No icterus, tongue moist, LUIS DANIEL, Awake alert, disoriented, nonfocal grossly, moving all 4 extremities Neck: No JVD Chest/pulmonary: Dressing over right anterior chest wall clean dry and intact. At entry decreased bilaterally at bases, scattered rhonchi, no wheezing Cardiovascular: S1-S2 regular no gallop or murmur GI/abdomen: Soft, nontender, bowel sounds present Extremities: Warm bilaterally, no edema Laboratory Laboratory Tests Test 12/13/16 12/13/16 12/13/16 06:49 09:50 11:54 White Blood Count 6.5 Red Blood Count 3.13 Hemoglobin 8.7 Hematocrit 26.0 Mean Corpuscular Volume 82.9 Mean Corpuscular Hemoglobin 27.8 Mean Corpuscular Hemoglobin 33.5 Concent Red Cell Distribution Width 17.6 Platelet Count 186 Mean Platelet Volume 7.5 Neutrophils (%) (Auto) 80.4 Lymphocytes (%) (Auto) 14.1 Monocytes (%) (Auto) 4.9 Eosinophils (%) (Auto) 0.6 Basophils (%) (Auto) 0.0 Neutrophils # (Auto) 5.2 Lymphocytes # (Auto) 0.9 Monocytes # (Auto) 0.3 Eosinophils # (Auto) 0.0 Basophils # (Auto) 0.0 CBC Comment DIFF FINAL Differential Comment Sodium Level 148 Potassium Level 3.1 Chloride Level 115 Carbon Dioxide Level 24.8 Anion Gap 8 Blood Urea Nitrogen 33 Creatinine 0.74 Estimat Glomerular Filtration 78 Rate Random Glucose 110 Calcium Level 7.6 Total Bilirubin 0.3 Aspartate Amino Transf 53 (AST/SGOT) Alanine Aminotransferase 38 (ALT/SGPT) Alkaline Phosphatase 77 Total Protein 5.2 Albumin 1.9 Prothrombin Time 12.5 Prothromb Time International 1.1 Ratio Activated Partial 33.4 Thromboplast Time Blood Gas Puncture Site RT RADIAL Blood Gas Patient Temperature 98.6 Blood Gas HCO3 24 Blood Gas Base Excess -1.3 Blood Gas Oxygen Saturation 85 Arterial Blood pH 7.34 Arterial Blood Partial 46 Pressure CO2 Arterial Blood Partial 57 Pressure O2 Arterial Blood Oxygen Content 14.1 Arterial Blood 0.7 Carboxyhemoglobin Arterial Blood Methemoglobin 0.8 Blood Gas Hemoglobin 11.8 Oxygen Delivery Device SM Blood Gas Liter Flow 15 Blood Gas Inspired Oxygen 100 Date/Time Procedure Status Source Growth 12/11/16 10:15 Gram Stain - Final Complete Wound Chest 12/11/16 10:15 Wound Culture - Final Complete Group A Beta Strep 12/11/16 10:15 Fungal Smear - Final Resulted Wound Chest NO FUNGAL ELEMENTS SEEN. 12/11/16 10:15 Fungal Culture Resulted Wound Chest Pending 12/11/16 10:15 Acid Fast Stain - Final Resulted Wound Chest NO ACID FAST BACILLI SEEN 12/11/16 10:15 Mycobacterial Culture Resulted Wound Chest Pending 12/10/16 09:35 Aerobic Blood Culture - Preliminary Resulted Blood Peripheral NO GROWTH IN 3 DAYS 12/10/16 09:35 Anaerobic Blood Culture - Final Resulted Blood Peripheral QNS - SEE AEROBE REPORT 12/10/16 09:25 Aerobic Blood Culture - Final Complete Blood Peripheral S. Aureus Mrsa 12/10/16 09:25 Anaerobic Blood Culture - Final Complete S. Aureus Mrsa Result Diagram: 12/13/16 0649 12/13/16 0649 Imaging Chest x-ray portable(12/13) which was personally reviewed: Lung barrett with right basilar infiltrate, NG tube in place Last Impressions Lower Extremity Ultrasound 12/11/16 0000 Signed Impressions: Service Date/Time: Sunday, December 11, 2016 13:49 - CONCLUSION: Venous deep venous thrombosis on the right extending into the mid common femoral vein. This begins in the posterior tibia and extends into the popliteal vein. Sean Shabazz MD FACR Chest X-Ray 12/11/16 0000 Signed Impressions: Service Date/Time: Sunday, December 11, 2016 01:18 - CONCLUSION: No acute disease. Ck Cardoza Jr., MD Abdomen X-Ray 12/11/16 0000 Signed Impressions: Service Date/Time: Sunday, December 11, 2016 17:10 - CONCLUSION: Nonspecific abdomen. Marjorie Hyman MD Head CT 12/08/16 0000 Signed Impressions: Service Date/Time: Thursday, December 08, 2016 11:34 - CONCLUSION: 1. No acute findings in the brain. 2. Focal scalp thickening high midline frontal region. No skull fracture seen. Ck Power MD CT Angiography 12/07/16 6081 Signed Impressions: Service Date/Time: Wednesday, December 07, 2016 19:40 - CONCLUSION: 1. No pulmonary embolus. 2. Limited evaluation otherwise but a fracture has clearly developed near the costochondral junction of the left fifth rib and surrounded by a large collection of fluid in the chest and upper abdominal wall, all new. A traumatic fracture with hematoma/seroma is felt most likely. I don't see a discrete mass or other clear etiology for any pathologic fracture. I also don't clearly see evidence of active bleeding. 3. Small, dependently layering and fairly low attenuation left pleural effusion now demonstrated. Nithin Hurley MD Assessment and Plan Assessment and Plan 70-year-old female with: Acute respiratory failure Suspect aspiration Possible PE Infected chest wall hematoma status post evacuation 12/11 MRSA bacteremia Probable COPD with COPD exacerbation History of DVT Failure to thrive Moderate dementia Plan: Neuro: Follow neuro status. We'll use Precedex gtt. to control agitation if needed. Cardiovascular: IV hydration, watch for hypotension. Pulmonary: On 100% nonrebreather facemask O2. DuoNeb nebulizer treatments. Solu-Medrol 125 mg IV stat and then 80 mg IV every 8 hourly. If respiratory status declines may consider BiPAP. Per my discussion with patient's son subsequently he has decided to change CODE STATUS to DNR DNI based on her known wishes hence patient will not be intubated if respiratory status declines. GI/liver: Keep nothing by mouth for now. NG tube placed to suction. Will consider tube feeds tomorrow if respiratory status improves. Renal/: IV hydration, strict intake output, monitor and replete elect lites, follow BUN creatinine. ID: Patient is being followed by ID for infected chest wall hematoma which has been drained. Currently on IV Levaquin and vancomycin. We'll repeat blood cultures as patient did have MRSA bacteremia to check for clearing. Heme: Off anticoagulation currently per hematology due to hematoma over chest wall which has been drained. Not a candidate for IVC filter due to MRSA bacteremia at this time. Prophylaxis: PPI, subcutaneous heparin was increased to 5000 units subcutaneous before meals every 8 hourly. Long discussion with patient's son regarding her current clinical status. He subsequently went me again and was extremely clear that patient would not want aggressive measures including intubation or mechanical ventilation or CPR if her condition worsened. In fact he is pretty sure that she would want to be kept comfortable based on her trajectory over the last few months with worsening quality of life and progressing dementia. He does request meeting with palliative care and is interested in knowing options for transition to comfort measures including possibly hospice. Condition critical. Time spent on critical care excluding procedures 60 minutes Case Wilkinson MD Dec 13, 2016 13:49
[2016-12-13] MEDS ORDERED: HEPARIN SODIUM - SQ 10,000 UNITS/ML VIAL SQ SCH (14:00)
[2016-12-13] MEDS ORDERED: methylPREDNISolone SOD SUCC 125 MG/2 ML VIAL IV PUSH ONE (14:00)
[2016-12-13] MEDS ORDERED: DEXMEDETOMIDINE INJ 200 MCG in SODIUM CHLORIDE 0.9% INJ 50 ML IV SCH (14:00)
--- NOTE | 2016-12-13 14:15 | HHI.PR ---
Subjective Subjective Notes Aspirated earlier; moved to [facility]. Family has made her DNR. She is awake but confused. Objective Vitals/I&O Vital Signs Date Time Temp Pulse Resp B/P Pulse Ox O2 Delivery O2 Flow Rate FiO2 12/13/16 12:31 92 Non-Rebreather 15.00 100 12/13/16 08:00 97.8 74 16 101/55 Labs Laboratory Tests Test 12/13/16 12/13/16 12/13/16 06:49 09:50 11:54 White Blood Count 6.5 Red Blood Count 3.13 Hemoglobin 8.7 Hematocrit 26.0 Mean Corpuscular Volume 82.9 Mean Corpuscular Hemoglobin 27.8 Mean Corpuscular Hemoglobin 33.5 Concent Red Cell Distribution Width 17.6 Platelet Count 186 Mean Platelet Volume 7.5 Neutrophils (%) (Auto) 80.4 Lymphocytes (%) (Auto) 14.1 Monocytes (%) (Auto) 4.9 Eosinophils (%) (Auto) 0.6 Basophils (%) (Auto) 0.0 Neutrophils # (Auto) 5.2 Lymphocytes # (Auto) 0.9 Monocytes # (Auto) 0.3 Eosinophils # (Auto) 0.0 Basophils # (Auto) 0.0 CBC Comment DIFF FINAL Differential Comment Sodium Level 148 Potassium Level 3.1 Chloride Level 115 Carbon Dioxide Level 24.8 Anion Gap 8 Blood Urea Nitrogen 33 Creatinine 0.74 Estimat Glomerular Filtration 78 Rate Random Glucose 110 Calcium Level 7.6 Total Bilirubin 0.3 Aspartate Amino Transf 53 (AST/SGOT) Alanine Aminotransferase 38 (ALT/SGPT) Alkaline Phosphatase 77 Total Protein 5.2 Albumin 1.9 Prothrombin Time 12.5 Prothromb Time International 1.1 Ratio Activated Partial 33.4 Thromboplast Time Blood Gas Puncture Site RT RADIAL Blood Gas Patient Temperature 98.6 Blood Gas HCO3 24 Blood Gas Base Excess -1.3 Blood Gas Oxygen Saturation 85 Arterial Blood pH 7.34 Arterial Blood Partial 46 Pressure CO2 Arterial Blood Partial 57 Pressure O2 Arterial Blood Oxygen Content 14.1 Arterial Blood 0.7 Carboxyhemoglobin Arterial Blood Methemoglobin 0.8 Blood Gas Hemoglobin 11.8 Oxygen Delivery Device SM Blood Gas Liter Flow 15 Blood Gas Inspired Oxygen 100 Date/Time Procedure Status Source Growth 12/13/16 12:30 Aerobic Blood Culture Received Blood Peripheral Pending 12/13/16 12:30 Anaerobic Blood Culture Received Blood Peripheral Pending 12/11/16 10:15 Gram Stain - Final Complete Wound Chest 12/11/16 10:15 Wound Culture - Final Complete Group A Beta Strep 12/11/16 10:15 Fungal Smear - Final Resulted Wound Chest NO FUNGAL ELEMENTS SEEN. 12/11/16 10:15 Fungal Culture Resulted Wound Chest Pending 12/11/16 10:15 Acid Fast Stain - Final Resulted Wound Chest NO ACID FAST BACILLI SEEN 12/11/16 10:15 Mycobacterial Culture Resulted Wound Chest Pending 12/10/16 09:35 Aerobic Blood Culture - Preliminary Resulted Blood Peripheral NO GROWTH IN 3 DAYS 12/10/16 09:35 Anaerobic Blood Culture - Final Resulted Blood Peripheral QNS - SEE AEROBE REPORT 12/10/16 09:25 Aerobic Blood Culture - Final Complete Blood Peripheral S. Aureus Mrsa 12/10/16 09:25 Anaerobic Blood Culture - Final Complete S. Aureus Mrsa Narrative Exam Area of I&D clean. A/P Assessment and Plan Impression: Status post incision and drainage of large chest wall abscess. Now DNR. Plan: Wound care as necessary Cl Lee MD Dec 13, 2016 14:15
[2016-12-13] MEDS: RESP: ALBUTEROL 2.5 MG/IPRATROPIUM 0.5 MG NEB (SCH) NEB ×3 (15:31→23:55)
[2016-12-13] MEDS: VANCOMYCIN 1,000 MG/NS 250 ML IV SCH ×2 (16:00)
[2016-12-13] MEDS ORDERED: HALOPERIDOL LACTATE 5 MG/ML AMP IV PRN (17:00)
[2016-12-13] MEDS ORDERED: SODIUM CHLORID 0.9% 500 ML INJ 500 ML IV ONE (17:00)
--- NOTE | 2016-12-13 17:37 | HHI.PR ---
Addendum to Inpatient Note Addendum Reason: Additional Documentation Additional Information Patient becoming more lethargic and hypotensive despite fluid bolus. I discussed extensively current clinical status once again with patient's son( Maverick Mcginnis) who does not wish to have any further invasive procedures including central line. He wishes to transition to comfort measures only and does not wish initiation of pressors and also tells me to stop all other aggressive care. Patient is a DNR status. Will transition to comfort measures only with Ativan/morphine when necessary for anxiety/discomfort and will stop all other medications including antibiotics and IV fluids. Case Wilkinson MD Dec 13, 2016 17:37
--- NOTE | 2016-12-13 17:48 | HHI.IDPN ---
Subjective Subjective Remarks ID COVERAGE 70 year old CF admitted with weakness and found to have an infected hematoma on her chest wall. Had I and D Notes reviewed Transferred to ICU Aspirated On NRB mask Also hypotensive Family has made her a DNR Getting fluid bolus right now Family may decide to do comfort measures if BP not better Pt is now awake, talking, though confused She is afebrile One BC with MRSA Abscess C/S GAS Antibiotics vancomycin Past Medical History Reviewed Allergies: Coded Allergies: Codeine (Verified Allergy, Severe, Anaphylaxis-PT UNSURE OF ALLERGY, ) Penicillin (Verified Allergy, Intermediate, Anaphylaxis, 11/23/16) Objective . Vital Signs Date Time Temp Pulse Resp B/P Pulse Ox O2 Delivery O2 Flow Rate FiO2 12/13/16 12:31 92 Non-Rebreather 15.00 100 12/13/16 11:50 95 Simple Mask 15.00 12/13/16 11:45 88 Nasal Cannula 6.00 12/13/16 09:32 95 Nasal Cannula 3.00 12/13/16 08:00 97.8 74 16 101/55 94 12/13/16 05:30 97.1 88 19 110/64 94 12/13/16 00:00 98.8 82 19 108/67 95 12/12/16 20:45 97.7 80 20 105/69 94 12/12/16 12/12/16 12/13/16 15:00 23:00 07:00 Intake Total 1760 ml Output Total 500 ml 800 ml Balance -500 ml 960 ml Intake Oral 0 ml IV Total 1200 ml Tube Feeding 360 ml Other 200 ml Output Urine Total 500 ml 800 ml # Bowel Movements 0 0 . Laboratory Tests Test 12/12/16 12/13/16 05:00 06:49 White Blood Count 11.1 TH/MM3 6.5 TH/MM3 Red Blood Count 3.05 MIL/MM3 3.13 MIL/MM3 Hemoglobin 8.3 GM/DL 8.7 GM/DL Hematocrit 24.9 % 26.0 % Mean Corpuscular Volume 81.8 FL 82.9 FL Mean Corpuscular Hemoglobin 27.3 PG 27.8 PG Mean Corpuscular Hemoglobin 33.4 % 33.5 % Concent Red Cell Distribution Width 18.1 % 17.6 % Platelet Count 193 TH/MM3 186 TH/MM3 Mean Platelet Volume 7.9 FL 7.5 FL Neutrophils (%) (Auto) 92.9 % 80.4 % Lymphocytes (%) (Auto) 5.0 % 14.1 % Monocytes (%) (Auto) 1.9 % 4.9 % Eosinophils (%) (Auto) 0.0 % 0.6 % Basophils (%) (Auto) 0.2 % 0.0 % Neutrophils # (Auto) 10.3 TH/MM3 5.2 TH/MM3 Lymphocytes # (Auto) 0.5 TH/MM3 0.9 TH/MM3 Monocytes # (Auto) 0.2 TH/MM3 0.3 TH/MM3 Eosinophils # (Auto) 0.0 TH/MM3 0.0 TH/MM3 Basophils # (Auto) 0.0 TH/MM3 0.0 TH/MM3 CBC Comment DIFF FINAL DIFF FINAL Differential Comment Hematology Comments Laboratory Tests Test 12/12/16 12/13/16 05:00 06:49 Sodium Level 145 MEQ/L 148 MEQ/L Potassium Level 3.8 MEQ/L 3.1 MEQ/L Chloride Level 117 MEQ/L 115 MEQ/L Carbon Dioxide Level 19.8 MEQ/L 24.8 MEQ/L Anion Gap 8 MEQ/L 8 MEQ/L Blood Urea Nitrogen 43 MG/DL 33 MG/DL Creatinine 1.18 MG/DL 0.74 MG/DL Estimat Glomerular Filtration 46 ML/MIN 78 ML/MIN Rate Random Glucose 119 MG/DL 110 MG/DL Calcium Level 7.8 MG/DL 7.6 MG/DL Total Bilirubin 0.4 MG/DL 0.3 MG/DL Aspartate Amino Transf 16 U/L 53 U/L (AST/SGOT) Alanine Aminotransferase 16 U/L 38 U/L (ALT/SGPT) Alkaline Phosphatase 82 U/L 77 U/L Total Protein 5.7 GM/DL 5.2 GM/DL Albumin 1.9 GM/DL 1.9 GM/DL Microbiology Date/Time Procedure Status Source Growth 12/11/16 10:15 Gram Stain - Final Complete Wound Chest 12/11/16 10:15 Wound Culture - Final Complete Group A Beta Strep 12/11/16 10:15 Acid Fast Stain - Final Resulted Wound Chest NO ACID FAST BACILLI SEEN 12/11/16 10:15 Mycobacterial Culture Resulted Wound Chest Pending 12/11/16 10:15 Fungal Smear - Final Resulted Wound Chest NO FUNGAL ELEMENTS SEEN. 12/11/16 10:15 Fungal Culture Resulted Wound Chest Pending 12/13/16 12:30 Aerobic Blood Culture Received Blood Peripheral Pending 12/13/16 12:30 Anaerobic Blood Culture Received Blood Peripheral Pending Imaging Last Impressions Lower Extremity Ultrasound 12/11/16 0000 Signed Impressions: Service Date/Time: Sunday, December 11, 2016 13:49 - CONCLUSION: Venous deep venous thrombosis on the right extending into the mid common femoral vein. This begins in the posterior tibia and extends into the popliteal vein. Sean Shabazz MD FACR Chest X-Ray 12/11/16 0000 Signed Impressions: Service Date/Time: Sunday, December 11, 2016 01:18 - CONCLUSION: No acute disease. Ck Cardoza Jr., MD Abdomen X-Ray 12/11/16 0000 Signed Impressions: Service Date/Time: Sunday, December 11, 2016 17:10 - CONCLUSION: Nonspecific abdomen. KAlyssia Hyman MD Head CT 12/08/16 0000 Signed Impressions: Service Date/Time: Thursday, December 08, 2016 11:34 - CONCLUSION: 1. No acute findings in the brain. 2. Focal scalp thickening high midline frontal region. No skull fracture seen. Ck Power MD CT Angiography 12/07/16 1844 Signed Impressions: Service Date/Time: Wednesday, December 07, 2016 19:40 - CONCLUSION: 1. No pulmonary embolus. 2. Limited evaluation otherwise but a fracture has clearly developed near the costochondral junction of the left fifth rib and surrounded by a large collection of fluid in the chest and upper abdominal wall, all new. A traumatic fracture with hematoma/seroma is felt most likely. I don't see a discrete mass or other clear etiology for any pathologic fracture. I also don't clearly see evidence of active bleeding. 3. Small, dependently layering and fairly low attenuation left pleural effusion now demonstrated. Nithin Hurley MD Physical Exam GENERAL: Thin female, lethargic on NRB mask SKIN: No generalized rash. Cool and dry HEAD: Atraumatic. Normocephalic. EYES: Pupils equal and round and reactive. Extraocular motions intact. No scleral icterus. No injection or drainage. ENT: Nose without bleeding or purulent drainage. Oral mucosae without visible erythema, exudates, masses, or lesions. NECK: Trachea midline. Supple, nontender. CARDIOVASCULAR: Regular rate and rhythm without murmurs, gallops, or rubs. RESPIRATORY/CHEST: Decreased BS at bases. NO wheezing or rhonchi. Upper abdominal wall/ lower chest wall has a large wound with packing and dressing. has some redness around. GASTROINTESTINAL: Abdomen soft, non-tender, nondistended. No hepato-splenomegaly , or palpable masses. No guarding. Bowel sounds present. GENITOURINARY: Keller catheter in place. Urine clear MUSCULOSKELETAL: Extremities without clubbing, cyanosis. (+) pedal edema. No joint effusion noted. No calf tenderness. No mottling or clubbing. NEUROLOGICAL: Awake and alert. Not follows commands. + Incoherent speech PSYCHIATRIC: calm LINE: PIV no evidence of infection Assessment & Plan Remarks MRSA sepsis -? source Large chest wall abscess, group A beta strep - sp I+D RLE extensive DVT PLAN: Continue vancomcin - target trough 15-20 Await 2 D echo Agree with repeat BC Add GNR coverage for aspiration PNA Follow C/S Family deciding on further care D/W Deneen Barreto MD Dec 13, 2016 17:48
[2016-12-13] MEDS ORDERED: MORPHINE SULFATE 4 MG/ML INJ IV PRN (18:00)
[2016-12-13] MEDS ORDERED: LORazepam 2 MG/ML VIAL IV PRN ×2 (18:00)
[2016-12-13] MEDS ORDERED: LORazepam 2 MG/ML VIAL IVS PRN (18:00)
[2016-12-13] MEDS: AZTREONAM INJ 1,000 MG in SODIUM CHLORIDE 0.9% INJ 100 ML IV SCH (18:00)
[2016-12-13] MEDS ORDERED: MORPHINE SULFATE 8 MG/ML INJ IV PUSH PRN (18:00)
[2016-12-13] MEDS ORDERED: LEVOFLOXACIN 500 MG PREMIX INJ 100 ML IV SCH (20:00)
[2016-12-13] MEDS: MORPHINE SULFATE 4 MG/ML INJ IV SCH (20:00)
[2016-12-13] MEDS ORDERED: methylPREDNISolone SOD SUCC 125 MG/2 ML VIAL IV PUSH SCH (22:00)
[2016-12-14] MEDS: MORPHINE SULFATE 4 MG/ML INJ IV SCH ×5 (00:13→16:40)
[2016-12-14] MEDS: AZTREONAM INJ 1,000 MG in SODIUM CHLORIDE 0.9% INJ 100 ML IV SCH ×2 (00:51→09:30)
[2016-12-14] MEDS: RESP: ALBUTEROL 2.5 MG/IPRATROPIUM 0.5 MG NEB (SCH) NEB ×4 (03:52→15:27)
[2016-12-14] MEDS: SODIUM CHLORIDE 0.9% FLUSH 10 ML FLUSH IV FLUSH SCH (07:55)
[2016-12-14 08:29] VITALS: O2SAT 92
--- NOTE | 2016-12-14 08:35 | HHI.PR ---
Subjective History of Present Illness Patient seen on 12/13/16. Patient confused have SOB and Hypoxia stat ABGs checked Transferred to ICU D/W Critical care physician . high WBC count better now Blood culture grows MRSA have Sepsis on admission on vancomycin and Levaquin. no fever infectious disease input noted hematology and general surgery input noted for fluid collection left chest wall and upper abdomen. s/ p fluid drainage which was pus s/p NG Tube in and on gavity for tube feeding d/w Sisters at bed side. vancomycin discontinued started on aztreonam chest wound grows Group A beta Strept. Review of Systems Constitutional Constitutional Remarks unreliable ROS. Vitals/Results Intake & Output 12/13/16 12/13/16 12/14/16 15:00 23:00 07:00 Intake Total 1000 ml 1268 ml 207 ml Output Total 250 ml 50 ml 120 ml Balance 750 ml 1218 ml 87 ml IV Total 1000 ml 1268 ml 207 ml Output Urine Total 250 ml 50 ml 75 ml Gastric Drainage Total 0 ml 0 ml 45 ml # Bowel Movements 0 0 0 Vital Signs Vital Signs Date Time Temp Pulse Resp B/P Pulse Ox O2 Delivery O2 Flow Rate FiO2 12/14/16 01:12 23 12/13/16 19:15 97.4 50 24 94/45 100 12/13/16 16:00 97.8 80 20 67/37 91 12/13/16 13:00 97.6 92 28 114/56 100 12/13/16 12:31 92 Non-Rebreather 15.00 100 12/13/16 12:06 97.0 85 87/50 92 12/13/16 12:05 88/52 12/13/16 12:00 89 87/52 94 12/13/16 11:50 95 Simple Mask 15.00 12/13/16 11:45 88 Nasal Cannula 6.00 12/13/16 11:45 106 105/63 88 12/13/16 11:30 97.4 116 113/55 86 12/13/16 09:32 95 Nasal Cannula 3.00 CBC/BMP: 12/13/16 0649 12/13/16 0649 Lab Results Laboratory Tests Test 12/13/16 12/13/16 09:50 11:54 Prothrombin Time 12.5 SEC Prothromb Time International 1.1 RATIO Ratio Activated Partial 33.4 SEC Thromboplast Time Blood Gas Puncture Site RT RADIAL Blood Gas Patient Temperature 98.6 Blood Gas HCO3 24 mmol/L Blood Gas Base Excess -1.3 mmol/L Blood Gas Oxygen Saturation 85 % Arterial Blood pH 7.34 Arterial Blood Partial 46 mmHg Pressure CO2 Arterial Blood Partial 57 mmHg Pressure O2 Arterial Blood Oxygen Content 14.1 Vol % Arterial Blood 0.7 % Carboxyhemoglobin Arterial Blood Methemoglobin 0.8 % Blood Gas Hemoglobin 11.8 G/DL Oxygen Delivery Device SM Blood Gas Liter Flow 15 L/M Blood Gas Inspired Oxygen 100 % Microbiology Microbiology 12/13/16 Aerobic Blood Culture, Received Pending 12/13/16 Anaerobic Blood Culture, Received Pending Physical Exam General General Appearance: No Acute Distress, Comfortable Eyes Eye Exam: Pupils Equal, Pupils Reactive, Sclera White, Extraocular Movement Intact Throat Throat Exam: Oral [place]uc[place] & Moist, Oral Pharynx Normal Neck Neck Exam: Neck Supple, Trachea Midline Pulmonary Resp Exam: Clear Bilaterally, Breath Sounds Equal, No Distress Cardiology CV Exam: Normal Sinus Rhythm Gastrointestinal/Abdomen GI Exam: Soft, Non-Tender, Bowel Sounds Present Integumentary Skin Exam: Warm, Dry Extremeties Extremities Exam: No Edema Neurologic Neuro Exam: Alert, Awake, Moving All Extremities Neuro Remarks Dementia. VTE Prophylaxis VTE Remarks Xarelto PUD Prophylasis PUD Prophylaxis: Protonix Assessment/Plan Assessment/Plan ASSESSMENT/PLAN 1. This is a 70-year female who came to the ER diagnosed with altered mental status, unknown etiology. checked a CT scan of the brain without contrast shows nothing acute and metabolic workup..noted neurology input noted have dementia. 2. Possible dementia. Further recommendation per neurology...on Nemenda. 3. Failure to thrive. The patient is on Megace. We will Monitor. S/P NG Tube in and on Gavity for tube feeding. nutrionest on board. 4. History of right lower extremity DVT. The patient was on Xarelto 15 mg twice a day which is on hold . on heparin now. 5. Hypokalemia. resolved. 6. Chest pain, left-sided. Troponin less than 0.02 with Low creatinine kinase, atypical chest pain. 7. Left fifth rib costochondral fracture with a large collection of fluid in the chest and upper abdominal wall. S/P Drainage was turned out to be Pus. 8. The patient was on a blood thinner, Xarelto. Very sticky situation with DVT and a possible bleed. We will observe closely. hold Xarelto. hematology and general surgery input noted for fluid collection left chest wall and upper abdomen. s/p fluid drainage hematology agree with holding Xarelto. 9. Thrombocytosis, we will monitor. 10. Leukocytosis. We will monitor..better. 11. Hearing problem. 12. History of smoking. Advised to quit. 13. Depression. Continue with Lexapro 10 mg p.o. daily. 14. DVT prophylaxis. The patient was on Xarelto. 15. GI prophylaxis, Protonix 40 mg p.o. daily. 16. Sepsis on admission no fever no pneumonia on CT chest and Urine did not shows UTI..blood culture grows MRSA Sepsis on admission on vancomycin and Levaquin. infectious disease input noted Check CBC with diff CMP in AM. We are going to manage the patient on a daily basis and make recommendations on a daily basis. Ren Gonzalez MD Dec 14, 2016 08:35
--- NOTE | 2016-12-14 10:52 | PD.CONS ---
Consult Service Palliative Care Consult Requested By MD Jaja Primary Care Physician Ren Gonzalez MD Reason for Consultation a. To assist with evaluation and management of symptoms including: pain, dyspnea b. To assist medical decision maker(s) with: better understanding of current medical conditions; weighing benefits/burdens of medical treatment options; making medical treatment decisions. HPI History of Present Illness This is a 70-year-old woman who initially presented to the hospital on 11/23/16 after a fall. She has been residing with her son. She is complaining of dizziness for some time. Per records, she complained of swelling to her leg on 11/19/2016, however, refused to have it investigated at the time. On that admission, Ultrasound did find an extensive DVT involving the external iliac vein, common femoral vein, superficial femoral vein. She was started on anticoagulants and subsequently discharged. Patient returned to the emergency department on 12/11/16. With complaints of left-sided chest pain on with mild shortness of breath and tachycardia after a fall. CXR Left fifth rib costochondral fracture with a large collection of fluid in the chest and upper abdominal wall that eventually was surgically evacuated. Gram stain from the wound culture identified Group A beta strep. She was also found in the blood cultures to have MRSA and She was started on antibiotics. An IVC filter was recommended in light of the extensive DVT. However, due to the bacteremia, this was put on hold. Common remained lethargic and confused with pain due to the rib fracture. On , she developed worsening shortness of breath with question of aspiration and rapid response was called. Her O2 sats were in the eighties and she was started on a nonrebreather face mask and transferred to the ICU. At the time of my visit, she is sedated due to medication. In talking with the nursing staff. She had been quite painful and restless and was given morphine as well as Ativan. She appears comfortable at this time. She remains on a 100% nonrebreather 10, and an oxygen saturation of about 92-100, blood pressures have run 67/37-94/45, heart rate has been 50-80. The request of the family is for comfort measures. She was made a DNR/DNI yesterday. Reportedly she has not seen a physician in 20 years. Other than emergency room visits or walk-in clinics. Patient's admits depression since her 's 5 years ago with " no will to live" but not suicidal. He has lost a significant amount of weight estimated to be about 50 pounds. Family also reports that she does not drink very well. She does not take care of personal ADLs such as washing her hair. Patient has been living with her son, Erlin, for approximately one year and prior to that she lived with one of her sisters. Lab reports that he has noticed a decline in her mental status with increasing forgetfulness, short-term and long-term as well as functional tasks, starting about 18 months ago. States that she has been saying that she was having wanting to and go join her . Her intake has been very poor and it is taken everything that he and his , to keep her functional. There are 3 sons in the family.She had been smoking up to the day of admission. Review of Systems ROS Limitations: Clinical Condition, Unresponsive Constitutional: COMPLAINS OF: Fatigue, Weight loss, Change in appetite Respiratory: COMPLAINS OF: Shortness of breath Cardiovascular: COMPLAINS OF: Chest pain Gastrointestinal: COMPLAINS OF: Anorexia Musculoskeletal: COMPLAINS OF: Back pain Other ROS: Patient is sedated with medication, her family is present. Information is obtained from discussion with family, and review of chart Past Family Social History Coded Allergies: Codeine (Verified Allergy, Severe, Anaphylaxis-PT UNSURE OF ALLERGY, ) Penicillin (Verified Allergy, Intermediate, Anaphylaxis, 11/23/16) *MDRO Multi-Drug Resistant Organism (Verified Adverse Reaction, Unknown, ) MRSA (blood)-12/10/16 Past Medical History Limited past medical history as she has not seen a physician in the last 20 years. She has had several emergency room visits for minor injuries. History of sciatica Possible DVT on 11/19/2016. However, she is to have it evaluated Depression Weight loss Self-care gloved Past Surgical History Appendectomy, cholecystectomy, hysterectomy, tonsillectomy Reported Medications Lexapro. Megace. Current Medications Medications (Trade) Dose Ordered Sig/Cal Route Start Time Stop Time Status Last Admin (NS Flush) 2 ml UNSCH PRN IV FLUSH 12/07/16 23:15 (NS Flush) 2 ml BID IV FLUSH 12/08/16 09:00 12/14/16 07:55 (Tylenol) 650 mg Q4H PRN PO 12/07/16 23:15 12/13/16 11:01 (Zofran Inj) 4 mg Q6H PRN IVP 12/07/16 23:15 (Dulcolax Supp) 10 mg DAILY PRN RECTAL 12/07/16 23:15 (Senokot) 17.2 mg Q12H PRN PO 12/07/16 23:15 Acetaminophen/ Hydrocodone Bitart 1 tab 1 tab BID PRN PO 12/12/16 20:45 12/13/16 05:16 (Precedex Inj/NS Inj) 52 ml @ 0 mls/hr TITRATE IV 12/13/16 14:00 12/13/16 14:05 (Haldol Inj) 4 mg Q4H PRN IV 12/13/16 17:00 (Morphine Inj) 4 mg Q4HR IV 12/13/16 20:00 12/14/16 07:55 (Morphine Inj) 4 mg Q30M PRN IV 12/13/16 18:00 (Morphine Inj) 6 mg Q30M PRN IV PUSH 12/13/16 18:00 (Ativan Inj) 1 mg Q1H PRN IV 12/13/16 18:00 12/14/16 09:30 (Ativan Inj) 2 mg Q1H PRN IV 12/13/16 18:00 Lorazepam 2 mg 2 mg Q15M PRN IVS 12/13/16 18:00 Aztreonam 1000 mg/ Sodium Chloride 100 ml @ 200 mls/hr Q8H IV 12/13/16 18:00 12/14/16 09:30 (Levaquin 500 Mg Premix Inj) 100 ml @ 100 mls/hr Q24H IV 12/13/16 20:00 12/13/16 20:00 Family History Mother from Alzheimer's, and there is another sister in the family with dementia. Father from a multitude of medical issues Substance Use Tobacco: Smoked 1 third pack of cigarettes a day since age 13was smoking up until the day of admission Alcohol: Nice history of abuse Prescription med abuse: Denies Illicits: Denies Psychosocial History 70-year-old female who originally grew up in [place]. She had been twice. Her more recent is . She has VA benefits from him. He has 3 sons, all of whom live local. She has 2 surviving sisters. Growing up. 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 He has been a lifelong smoker. Spiritual/Cultural Factors Raised Sikhism. However, is no longer affiliated Living Will: Never completed Health Care Surrogate: Never completed Durable Power of Laborer/Key Man: Never completed Health Care Surrogate(s): There is no designated health care surrogate at this time. However, her middle son, Lalit De La Garza has been taking an active role in her care. Her youngest son Blade Vargas has opted out in decision-making and has agreed to allow Lalit to act as surrogate. The eldest son Buster Rogel has yet to be contacted Today's verbally stated goals: Her middle son, Lalit has indicated that she had clearly stated she did not want any aggressive measures and wanted to remain comfortable at end-of-life. Ethical and Legal Issues At this point, waiting to hear from the third son relative to decision-making. According to [place] statutes decision making falls upon the majority of the adult children. Physical Exam Vital Signs Date Time Temp Pulse Resp B/P Pulse Ox O2 Delivery O2 Flow Rate FiO2 12/14/16 08:29 92 Nasal Cannula 5.00 12/14/16 01:12 23 12/13/16 19:15 97.4 50 24 94/45 100 12/13/16 16:00 97.8 80 20 67/37 91 12/13/16 13:00 97.6 92 28 114/56 100 12/13/16 12:31 92 Non-Rebreather 15.00 100 12/13/16 12:06 97.0 85 87/50 92 12/13/16 12:05 88/52 12/13/16 12:00 89 87/52 94 12/13/16 11:50 95 Simple Mask 15.00 12/13/16 11:45 88 Nasal Cannula 6.00 12/13/16 11:45 106 105/63 88 12/13/16 11:30 97.4 116 113/55 86 12/13/16 12/14/16 19:00 07:00 Intake Total 1000 ml 1475 ml Output Total 250 ml 170 ml Balance 750 ml 1305 ml IV Total 1000 ml 1475 ml Output Urine Total 250 ml 125 ml Gastric Drainage Total 0 ml 45 ml # Bowel Movements 0 0 Exam CONSTITUTIONAL/GENERAL: This is an thin, frail woman with mild respiratory distress on a 100% nonrebreather TUBES/LINES/DRAINS: Urinary catheter SKIN: No jaundice, rashes, or lesions. Ecchymoses on upper extremities. Skin tears evident. Skin temperature appropriate. Not diaphoretic. HEAD: Atraumatic. Normocephalic. EYES: Eyes closed. Did not force open for exam. ENT: Unable to assess hearing, mouth appears dry NECK: Trachea midline. Supple, nontender. No palpable thyroid enlargement or nodularity. CARDIOVASCULAR: Regular rate and rhythm without murmurs, gallops, or rubs. No JVD. Peripheral pulses symmetric. RESPIRATORY/CHEST: Symmetric, unlabored respirations. Coarse breath sounds.\\ Rales anterior, posterior, diminished GASTROINTESTINAL: Abdomen soft, non-tender, nondistended. No hepato-splenomegaly , or palpable masses. Bowel sounds present. GENITOURINARY: Without palpable bladder distension. Keller catheter in place. MUSCULOSKELETAL: Extremities without clubbing, cyanosis, or edema. No joint tenderness or effusion noted. No calf tenderness. No mottling or clubbing. LYMPHATICS: No palpable cervical or supraclavicular adenopathy. NEUROLOGICAL: Patient is sedated, unable to assess, will move limbs will. PSYCHIATRIC: Unable to assess due to sedation Diagnostic Tests Laboratory Laboratory Tests Test 12/11/16 12/12/16 12/13/16 12/13/16 11:15 05:00 06:49 09:50 Blood Type A NEGATIVE White Blood Count 11.1 TH/MM3 6.5 TH/MM3 (4.0-11.0) (4.0-11.0) Red Blood Count 3.05 MIL/MM3 3.13 MIL/MM3 (4.00-5.30) (4.00-5.30) Hemoglobin 8.3 GM/DL 8.7 GM/DL (11.6-15.3) (11.6-15.3) Hematocrit 24.9 % 26.0 % (35.0-46.0) (35.0-46.0) Mean Corpuscular Volume 81.8 FL 82.9 FL (80.0-100.0) (80.0-100.0) Mean Corpuscular Hemoglobin 27.3 PG 27.8 PG (27.0-34.0) (27.0-34.0) Mean Corpuscular Hemoglobin 33.4 % 33.5 % Concent (32.0-36.0) (32.0-36.0) Red Cell Distribution Width 18.1 % 17.6 % (11.6-17.2) (11.6-17.2) Platelet Count 193 TH/MM3 186 TH/MM3 (150-450) (150-450) Mean Platelet Volume 7.9 FL 7.5 FL (7.0-11.0) (7.0-11.0) Neutrophils (%) (Auto) 92.9 % 80.4 % (16.0-70.0) (16.0-70.0) Lymphocytes (%) (Auto) 5.0 % 14.1 % (9.0-44.0) (9.0-44.0) Monocytes (%) (Auto) 1.9 % (0.0-8.0) 4.9 % (0.0-8.0) Eosinophils (%) (Auto) 0.0 % (0.0-4.0) 0.6 % (0.0-4.0) Basophils (%) (Auto) 0.2 % (0.0-2.0) 0.0 % (0.0-2.0) Neutrophils # (Auto) 10.3 TH/MM3 5.2 TH/MM3 (1.8-7.7) (1.8-7.7) Lymphocytes # (Auto) 0.5 TH/MM3 0.9 TH/MM3 (1.0-4.8) (1.0-4.8) Monocytes # (Auto) 0.2 TH/MM3 0.3 TH/MM3 (0-0.9) (0-0.9) Eosinophils # (Auto) 0.0 TH/MM3 0.0 TH/MM3 (0-0.4) (0-0.4) Basophils # (Auto) 0.0 TH/MM3 0.0 TH/MM3 (0-0.2) (0-0.2) CBC Comment DIFF FINAL DIFF FINAL Differential Comment Hematology Comments Prothrombin Time 18.4 SEC 12.5 SEC (9.8-11.6) (9.8-11.6) Prothromb Time International 1.6 RATIO 1.1 RATIO Ratio Activated Partial 45.6 SEC 33.4 SEC Thromboplast Time (24.3-30.1) (24.3-30.1) Sodium Level 145 MEQ/L 148 MEQ/L (136-145) (136-145) Potassium Level 3.8 MEQ/L 3.1 MEQ/L (3.5-5.1) (3.5-5.1) Chloride Level 117 MEQ/L 115 MEQ/L (98-107) (98-107) Carbon Dioxide Level 19.8 MEQ/L 24.8 MEQ/L (21.0-32.0) (21.0-32.0) Anion Gap 8 MEQ/L (5-15) 8 MEQ/L (5-15) Blood Urea Nitrogen 43 MG/DL (7-18) 33 MG/DL (7-18) Creatinine 1.18 MG/DL 0.74 MG/DL (0.50-1.00) (0.50-1.00) Estimat Glomerular Filtration 46 ML/MIN (>89) 78 ML/MIN (>89) Rate Random Glucose 119 MG/DL 110 MG/DL (74-106) (74-106) Calcium Level 7.8 MG/DL 7.6 MG/DL (8.5-10.1) (8.5-10.1) Total Bilirubin 0.4 MG/DL 0.3 MG/DL (0.2-1.0) (0.2-1.0) Aspartate Amino Transf 16 U/L (15-37) 53 U/L (15-37) (AST/SGOT) Alanine Aminotransferase 16 U/L (10-53) 38 U/L (10-53) (ALT/SGPT) Alkaline Phosphatase 82 U/L (45-117) 77 U/L (45-117) Total Protein 5.7 GM/DL 5.2 GM/DL (6.4-8.2) (6.4-8.2) Albumin 1.9 GM/DL 1.9 GM/DL (3.4-5.0) (3.4-5.0) Test 12/13/16 11:54 Blood Gas Puncture Site RT RADIAL Blood Gas Patient Temperature 98.6 Blood Gas HCO3 24 mmol/L (22-26) Blood Gas Base Excess -1.3 mmol/L (-2-2) Blood Gas Oxygen Saturation 85 % (90-100) Arterial Blood pH 7.34 (7.380-7.420) Arterial Blood Partial 46 mmHg (38-42) Pressure CO2 Arterial Blood Partial 57 mmHg Pressure O2 (61-120) Arterial Blood Oxygen Content 14.1 Vol % (12.0-20.0) Arterial Blood 0.7 % (0-4) Carboxyhemoglobin Arterial Blood Methemoglobin 0.8 % (0-2) Blood Gas Hemoglobin 11.8 G/DL (12.0-16.0) Oxygen Delivery Device SM Blood Gas Liter Flow 15 L/M Blood Gas Inspired Oxygen 100 % Result Diagram: 12/13/16 0649 12/13/16 0649 Microbiology Microbiology Date/Time Procedure Status Source Growth 12/13/16 12:30 Aerobic Blood Culture - Preliminary Resulted Blood Peripheral NO GROWTH IN 1 DAY 12/13/16 12:30 Anaerobic Blood Culture - Preliminary Resulted Blood Peripheral NO GROWTH IN 1 DAY 12/10/16blood culturesMRSA. 12/11/16wound culturegroup a beta strep Imaging Last 72 hours Impressions Chest X-Ray 12/13/16 0000 Signed Impressions: Service Date/Time: Tuesday, December 13, 2016 11:27 - CONCLUSION: 1. Right lower lobe consolidation. 2. NG tube in place with its tip in the stomach. Nithin Kee MD Imaging Chest x-ray portable(12/13) which was personally reviewed: Lung barrett with right basilar infiltrate, NG tube in place Last Impressions Lower Extremity Ultrasound 12/11/16 0000 Signed Impressions: Service Date/Time: Sunday, December 11, 2016 13:49 - CONCLUSION: Venous deep venous thrombosis on the right extending into the mid common femoral vein. This begins in the posterior tibia and extends into the popliteal vein. Sean Shabazz MD FACR Chest X-Ray 12/11/16 0000 Signed Impressions: Service Date/Time: Sunday, December 11, 2016 01:18 - CONCLUSION: No acute disease. Ck Cardoza Jr., MD Abdomen X-Ray 12/11/16 0000 Signed Impressions: Service Date/Time: Sunday, December 11, 2016 17:10 - CONCLUSION: Nonspecific abdomen. K. Agustin Hyman MD Head CT 12/08/16 0000 Signed Impressions: Service Date/Time: Thursday, December 08, 2016 11:34 - CONCLUSION: 1. No acute findings in the brain. 2. Focal scalp thickening high midline frontal region. No skull fracture seen. Ck Power MD CT Angiography 12/07/16 1844 Signed Impressions: Service Date/Time: Wednesday, December 07, 2016 19:40 - CONCLUSION: 1. No pulmonary embolus. 2. Limited evaluation otherwise but a fracture has clearly developed near the costochondral junction of the left fifth rib and surrounded by a large collection of fluid in the chest and upper abdominal wall, all new. A traumatic fracture with hematoma/seroma is felt most likely. I don't see a discrete mass or other clear etiology for any pathologic fracture. I also don't clearly see evidence of active bleeding. 3. Small, dependently layering and fairly low attenuation left pleural effusion now demonstrated. Nithin Hurley MD Patient/Family Conference Present at Family Conference: Patient's middle son, Lalit Anderson, his , Nemo and 2 sisters of The patient, I spoke with her son, Blade Vargas by telephone Family Conference Location: Bedside Issues Discussed: * Palliative care role, purpose, approach * Additional medical, psychosocial, and spiritual history * Patients general health, functional status, and cognitive changes in the months leading up to the current hospitalization * Patient/family understanding of the current medical problems * Patient/family understanding of prognosis * Patients goals of care as best understood from advance directives and/or conversations and/or values * Current medical treatment options and benefits/burdens of those options * Likely scenarios comparing ongoing aggressive care with a transition to comfort measures only * Questions answered to the best of my ability * Palliative care contact information provided Assessment and Plan Disease Oriented Problem List: (1) COPD exacerbation (2) Respiratory failure (3) Failure to thrive in adult (4) DVT (deep venous thrombosis) (5) Dementia without behavioral disturbance Symptom Scale: (1) Pain Comment: History of sciatica as well as recent fall with rib fracture. Also, DVT, has opiates available (2) Dyspnea Comment: History COPD with wrist recent respiratory failure, now on 100% nonrebreather. Patient is a DNR (3) Anxiety Comment: Secondary to pain and dyspnea has anxiolytics available Pertinent Non-Medical Issues Psychosocial: 70-year-old female with COPD, as well as progressive dementia over the last 18 months. She has been living with her son and prior to that was living with her sister. She has demonstrated self-care neglect since the of her 5 years ago. She has been dealing with depression and frequently spoke of wanting to to be with her . Spiritual: She is an affiliated but was raised Sikhism Legal: In the absence of the designated healthcare surrogate, per [place] statutes. Her sons are decision makers in her healthcare. At this point in time her sonAlyssia Goins has opted out allowing his brother Lalit to be spokesperson and the matter of her health care. Have yet to speak with Buster Rogel, the eldest son regarding decision-making. Ethical issues impacting care: Family appears to be working together with no obvious conflict at this time Important Contacts Maverick Mcginnis, son, cell, home Prognosis Prognosis is poor in light of recent events. She has had worsening respiratory failure with underlying COPD. She has an extensive DVT and is unable to have an IVC filter due to bacteremia. She also has had progressive dementia. Code Status: No Code Plan Decision Maker: At this point in time, decision making falls upon her son, Lalit Mcginnis [phone] and son, Buster Rogel, unless Buster opts out in decision- making, the youngest son, Blade has opted to transfer his decision-making to his brother, Maverick Code Status: No code DNR Family Discussion: Family is in agreement with comfort measures at this time. In light of her clinical symptoms status and an ongoing her wishes based on her comments of years past. They have watched her decline over the last 18 months with dementia. She has clearly indicated to them that she would want no aggressive measures at this point in time. Family is requesting hospice with care center Placement Hospice consult has been placed. Per family's request Symptoms: Pain, dyspnea, anxiety Palliative care phone number provided - will follow during hospital stay. Thank you for the opportunity to participate in the care of Ms. Harper. Attestation To help prompt me to consider important information that might be impacting today's encounter and assessment, information from prior notes written by myself or my colleagues may have been "brought forward" into today's note. My signature on this note, however, is an attestation that I personally performed the exam, history, and/or decision-making noted today, and, unless otherwise indicated, the interactions with patient, family, and staff as well as the review of records all occurred today. I also attest that the listed assessment and stated plan reflect my best clinical judgment today based on the combination of historical information, prior notes, and today's exam/ interactions. When time spent is documented, it refers only to time spent today by the signer, or if indicated, combined time spent today by collaborating physician/nurse practitioner. Isamar Tellez Dec 14, 2016 10:52
--- NOTE | 2016-12-14 11:33 | HHI.CCPN ---
Subjective Remarks/Hospital Course 70 year-old female with a medical history significant for moderate dementia, DVT for which she was recently started on Xarelto who was seen by Dr. Bhardwaj in his office on 12/08 or shortness of breath and weakness and failure to thrive. She was advised to come to the ER and presented next day on 12/09 to [place] [facility]. She was found to have a large hematoma involving her left chest wall at the side of her rib fracture and her anticoagulation was discontinued. Patient was evaluated by ID and hematology. She was found to have MRSA bacteremia and was septic. Workup reveal infected hematoma involving chest wall and she underwent I&D of infected hematoma on 12/[address] Mena. Subsequently she had been on the floor with an NG tube for tube feeds. This afternoon patient developed worsening shortness of breath with question of aspiration for which a rapid response was called. Patient's O2 sats were in the 80s and she was started on a nonrebreather facemask and transferred to the ICU. I was contacted by Dr. Bhardwaj who requested critical care consult for worsening respiratory failure. I evaluated the patient immediately on her arrival to the ICU. She appeared to be dyspneic using accessory muscles of respiration. She was given a stat nebulizer treatment with DuoNeb's with which her O2 sats came up in the 90s. Her NG tube was connected to suction. Chest x-ray done following rapid response revealed minimal right basilar infiltrate. I subsequently spoke with patient's son regarding her history and according to him she has not been doing well for the last few years since her 's and has been"wanting to ". She also has worsening memory problems/ dementia. She had continued to smoke up to the day of admission on 12/09. History was obtained by reviewing records and discussion with Dr. Gonzalez, patient 's family and rapid response team. Subjective 12/14: Afebrile. No acute events overnight. The patient was made DNR/DNI yesterday. Plan meeting this a.m. with palliative care team for discussion of goals of care. Objective Vital Signs Date Time Temp Pulse Resp B/P Pulse Ox O2 Delivery O2 Flow Rate FiO2 12/14/16 08:29 92 Nasal Cannula 5.00 12/14/16 01:12 23 12/13/16 19:15 97.4 50 94/45 12/13/16 12:31 100 Intake and Output 12/13/16 12/13/16 12/14/16 08:00 16:00 00:00 Intake Total 1760 ml 1000 ml 1268 ml Output Total 800 ml 250 ml 50 ml Balance 960 ml 750 ml 1218 ml Result Diagram: 12/13/16 0649 12/13/16 0649 Other Results Laboratory Tests Test 12/13/16 11:54 Blood Gas Puncture Site RT RADIAL Blood Gas Patient Temperature 98.6 Blood Gas HCO3 24 mmol/L (22-26) Blood Gas Base Excess -1.3 mmol/L (-2-2) Blood Gas Oxygen Saturation 85 % (90-100) Arterial Blood pH 7.34 (7.380-7.420) Arterial Blood Partial 46 mmHg (38-42) Pressure CO2 Arterial Blood Partial 57 mmHg Pressure O2 (61-120) Arterial Blood Oxygen Content 14.1 Vol % (12.0-20.0) Arterial Blood 0.7 % (0-4) Carboxyhemoglobin Arterial Blood Methemoglobin 0.8 % (0-2) Blood Gas Hemoglobin 11.8 G/DL (12.0-16.0) Oxygen Delivery Device SM Blood Gas Liter Flow 15 L/M Blood Gas Inspired Oxygen 100 % Imaging Chest x-ray portable(12/13) which was personally reviewed: Lung barrett with right basilar infiltrate, NG tube in place Last Impressions Lower Extremity Ultrasound 12/11/16 0000 Signed Impressions: Service Date/Time: Sunday, December 11, 2016 13:49 - CONCLUSION: Venous deep venous thrombosis on the right extending into the mid common femoral vein. This begins in the posterior tibia and extends into the popliteal vein. Sean Shabazz MD FACR Chest X-Ray 12/11/16 0000 Signed Impressions: Service Date/Time: Sunday, December 11, 2016 01:18 - CONCLUSION: No acute disease. Ck Cardoza Jr., MD Abdomen X-Ray 12/11/16 0000 Signed Impressions: Service Date/Time: Sunday, December 11, 2016 17:10 - CONCLUSION: Nonspecific abdomen. K. Agustin Hyman MD Head CT 12/08/16 0000 Signed Impressions: Service Date/Time: Thursday, December 08, 2016 11:34 - CONCLUSION: 1. No acute findings in the brain. 2. Focal scalp thickening high midline frontal region. No skull fracture seen. Ck Power MD CT Angiography 12/07/16 [id number] Signed Impressions: Service Date/Time: Wednesday, December 07, 2016 19:40 - CONCLUSION: 1. No pulmonary embolus. 2. Limited evaluation otherwise but a fracture has clearly developed near the costochondral junction of the left fifth rib and surrounded by a large collection of fluid in the chest and upper abdominal wall, all new. A traumatic fracture with hematoma/seroma is felt most likely. I don't see a discrete mass or other clear etiology for any pathologic fracture. I also don't clearly see evidence of active bleeding. 3. Small, dependently layering and fairly low attenuation left pleural effusion now demonstrated. Nithin Hurley MD Objective Remarks GENERAL: Frail elderly female, moaning, not responsive to my commands SKIN: Warm and dry. HEAD: Atraumatic. Normocephalic. EYES: Pupils equal and round. No scleral icterus. No injection or drainage. ENT: No nasal bleeding or discharge. Mucous membranes pink and moist. NECK: Trachea midline. No JVD. CARDIOVASCULAR: Normal rate, regular rhythm. RESPIRATORY: No accessory muscle use. Scattered rhonchi noted. Breath sounds equal bilaterally. Dressing noted over left anterior chest wall clean and dry GASTROINTESTINAL: Abdomen soft, non-tender, nondistended. No guarding. MUSCULOSKELETAL: Extremities without clubbing, cyanosis, or edema. No obvious deformities. NEUROLOGICAL: Awake and alert. Patient disoriented . Movement of extremities 4 Urinary Catheter: Yes A/P Assessment and Plan 70-year-old female with: Acute respiratory failure Suspect aspiration Possible PE Infected chest wall hematoma status post evacuation 12/11 MRSA bacteremia Probable COPD with COPD exacerbation History of DVT Failure to thrive Moderate dementia Plan: Neuro: Follow neuro status. Reorientation when possible Maintain sleep hygiene Cardiovascular: IV hydration, watch for hypotension. Pulmonary: On 100% nonrebreather facemask O2. DuoNeb nebulizer treatments. Solu-Medrol 125 mg IV stat and then 80 mg IV every 8 hourly. If respiratory status declines may consider BiPAP Patient will not be intubated if respiratory status declines. GI/liver: Maintain nothing by mouth status for now. NG tube placed to low intermittent wall suction. Consider tube feeds tomorrow if respiratory status improves. Obtain dietary consult Renal/: IV hydration, strict intake output monitor and replete electrolytes, follow BUN creatinine. ID: Patient is being followed by ID for infected chest wall hematoma which has been drained. Currently on IV Levaquin and vancomycin. We'll repeat blood cultures as patient did have MRSA bacteremia to check for clearing. Heme: Off therapeutic anticoagulation currently per hematology due to hematoma over chest wall which has been drained. Not a candidate for IVC filter due to MRSA bacteremia at this time. Prophylaxis: PPI, subcutaneous heparin was increased to 5000 units subcutaneous before meals every 8 hourly. Disposition: Long discussion with patient's son regarding her current clinical status performed by Dr. Wilkinson. Per Dr. Wilkinson's discussion, no aggressive measures including intubation or mechanical ventilation or CPR if her condition worsened. In fact he is pretty sure that she would want to be kept comfortable based on her trajectory over the last few months with worsening quality of life and progressing dementia. Palliative care consulted, follow-up recommendations today Level 3 Discussed with CADDIE SUPERVISOR at bedside. Physician Samira Marinelli MD Dec 14, 2016 11:33
--- NOTE | 2016-12-14 11:42 | PD.ONC.PN ---
Subjective Subjective Remarks Afebrile overnight. Patient obtunded. Son at bedside. She was made DNR and placed on comfort measures over the weekend. Son would like hospice consult. Objective Data Date Time Temp Pulse Resp B/P Pulse Ox O2 Delivery O2 Flow Rate FiO2 12/14/16 08:29 92 Nasal Cannula 5.00 12/14/16 01:12 23 12/13/16 19:15 97.4 50 24 94/45 100 12/13/16 16:00 97.8 80 20 67/37 91 12/13/16 13:00 97.6 92 28 114/56 100 12/13/16 12:31 92 Non-Rebreather 15.00 100 12/13/16 12:06 97.0 85 87/50 92 12/13/16 12:05 88/52 12/13/16 12:00 89 87/52 94 12/13/16 11:50 95 Simple Mask 15.00 12/13/16 11:45 88 Nasal Cannula 6.00 12/13/16 11:45 106 105/63 88 Result Diagram: 12/13/16 0649 12/13/16 0649 Laboratory Results Laboratory Tests Test 12/13/16 11:54 Blood Gas Puncture Site RT RADIAL Blood Gas Patient Temperature 98.6 Blood Gas HCO3 24 mmol/L Blood Gas Base Excess -1.3 mmol/L Blood Gas Oxygen Saturation 85 % Arterial Blood pH 7.34 Arterial Blood Partial 46 mmHg Pressure CO2 Arterial Blood Partial 57 mmHg Pressure O2 Arterial Blood Oxygen Content 14.1 Vol % Arterial Blood 0.7 % Carboxyhemoglobin Arterial Blood Methemoglobin 0.8 % Blood Gas Hemoglobin 11.8 G/DL Oxygen Delivery Device SM Blood Gas Liter Flow 15 L/M Blood Gas Inspired Oxygen 100 % Culture Results Microbiology Date/Time Procedure Status Source Growth 12/13/16 12:30 Aerobic Blood Culture - Preliminary Resulted Blood Peripheral NO GROWTH IN 1 DAY 12/13/16 12:30 Anaerobic Blood Culture - Preliminary Resulted Blood Peripheral NO GROWTH IN 1 DAY Administered Medications Medications (Trade) Dose Ordered Sig/Cal Route PRN Reason Start Time Stop Time Status Last Admin Dose Admin Sodium Chloride (NS Flush) 2 ml BID IV FLUSH 12/08/16 09:00 12/14/16 07:55 Acetaminophen (Tylenol) 650 mg Q4H PRN PO TEMP > 100.4 12/07/16 23:15 12/13/16 11:01 Acetaminophen/ Hydrocodone Bitart 1 tab 1 tab BID PRN PO WITH DRESSING CHANGES 12/12/16 20:45 12/13/16 05:16 Dexmedetomidine HCl/Sodium Chloride (Precedex Inj/NS Inj) 52 ml @ 0 mls/hr TITRATE IV 12/13/16 14:00 12/13/16 14:05 Morphine Sulfate (Morphine Inj) 4 mg Q4HR IV 12/13/16 20:00 12/14/16 07:55 Lorazepam 1 mg 1 mg Q1H PRN IV SEE LABEL COMMENTS 12/13/16 18:00 12/14/16 09:30 Aztreonam 1000 mg/ Sodium Chloride 100 ml @ 200 mls/hr Q8H IV 12/13/16 18:00 12/14/16 09:30 Levofloxacin/ Dextrose (Levaquin 500 Mg Premix Inj) 100 ml @ 100 mls/hr Q24H IV 12/13/16 20:00 12/13/16 20:00 Objective Remarks GENERAL: Obtunded elderly female, lying supine in bed on NRB mask SKIN: Warm and dry. HEAD: Normocephalic. EYES: No injection or drainage. NECK: Supple, trachea midline. CARDIOVASCULAR: +S1/S2 RESPIRATORY: Breath sounds equal bilaterally. No accessory muscle use. GASTROINTESTINAL: Abdomen soft, nondistended. EXTREMITIES: No cyanosis. lower extremities in SCD's Assessment/Plan Problem List: (1) DVT (deep venous thrombosis) Status: Acute Plan: --Right lower extremity deep venous thrombosis diagnosed earlier this month. patient started on Xarelto which has now been discontinued d/t hematoma+ abscess formation --Due to the bleeding she is not a candidate for anticoagulation. -- Currently she is not a candidate for IVC filter placement d/t infection. (2) Chest wall hematoma Status: Acute Plan: --CT angiogram showed NO PE; +large fluid collection in the left chest wall extending all the way down to the upper abdominal wall surrounding the left fifth rib. Radiologist felt that it is possibly a traumatic rib fracture causing a hematoma. --Underwent drainage which showed abscess formation on 12/11 (see MD operative note) (3) Coagulopathy Status: Acute Plan: --PT/PTT improved but still slightly prolonged --on 12/11 3 units FFP ordered as well as Vitamin K 10mg SQ given -- Heparin started on 12/12 and currently stopped as patient is now comfort measures only Assessment 70y/o female a large MRSA abscess involving the L chest wall, s/p surgical debridement. Found to have a proximal R L ext DVT. At presentation had a partially compensated peripheral consumptive coagulopathy (DIC), now recovering with appropriate surgical debridement and IV antibiotics. Not a candidate for IVC filter placement at this time due to MRSA septicemia. Thrombocytopenia improved. Plan 1. will await palliative care consult to determine goals of care. 2. consult hospice at patient's son request 3. monitor CBC, coags Attending Statement The exam, history, and the medical decision-making described in the above note were completed with the assistance of the mid-level provider. I reviewed and agree with the findings presented. I attest that I had a [id number] encounter with the patient on the same day, and personally performed and documented my assessment and findings in the medical record. Family has decided on comfort measure. No LE edema noted. Chest wall dressing dry. No active bleeding noted. Not a candidate for IVC filter placement due to MRSA. Was started on heparin subQ but that was /dc over the weekend. Problem Qualifiers (1) Chest wall hematoma: Qualified Code: S20.212A - Chest wall hematoma, left, initial encounter Meli Martinez Dec 14, 2016 11:42 Jaylen Fierro MD Dec 14, 2016 15:55
[2016-12-14 12:00] VITALS: BP 84/47; PULSE 125; RESP 15; TEMP 97.6; O2SAT 89
[2016-12-14 12:42] LABS: HEMATOCRIT 29.1 % (35.0-46.0); LYMPH % 2.2 % (9.0-44.0); LYMPHOCYTE # 0.6 TH/MM3 (1.0-4.8); MEAN CORPUSCULAR HEMOGLOBIN 27.4 PG (27.0-34.0); MEAN CORPUSCULAR HGB CONC 31.9 % (32.0-36.0); MONO % 3.4 % (0.0-8.0); NEUT % 94.4 % (16.0-70.0); PLATELET COUNT 216 TH/MM3 (150-450); RED BLOOD COUNT 3.38 MIL/MM3 (4.00-5.30); RED CELL DISTRIBUTION WIDTH 18.4 % (11.6-17.2); WHITE BLOOD COUNT 25.4 TH/MM3 (4.0-11.0)
[2016-12-14 12:43] LABS: HEMO FLAGS AUTO DIFF
[2016-12-14 13:10] LABS: BANDS 16 % (0-6); NEUTROPHIL # MANUAL DIFF 23.9 TH/MM3 (1.8-7.7); PLATELET ESTIMATE SMEAR NORMAL (NORMAL); PLATELET MORPHOLOGY NORMAL (NORMAL); POLYS (SEG NEUTROPHILS) 78 % (16-70); SCAN/DIFF FINAL DIFF MANUAL; WBC DIFF SAMPLE 100
[2016-12-14 13:11] LABS: KERATOCYTES OCC (NORMAL)
[2016-12-14] MEDS ORDERED: PHARMACY ORDERED LAB ONE (15:45)
--- NOTE | 2016-12-14 16:36 | HHI.DS ---
Summary Note Date of : Dec 14, 2016 Time Of : 16:00 Admission Date Dec 11, 2016 at 12:50 Admitting Diagnosis Chest Pain, Rib Fracture, FTT Diagnosis at Time of : CBC/BMP: 12/14/16 1147 12/13/16 0649 Significant Findings Laboratory Tests Test 12/12/16 12/13/16 12/13/16 12/13/16 05:00 06:49 09:50 11:54 White Blood Count 11.1 TH/MM3 (4.0-11.0) Red Blood Count 3.05 MIL/MM3 3.13 MIL/MM3 (4.00-5.30) (4.00-5.30) Hemoglobin 8.3 GM/DL 8.7 GM/DL (11.6-15.3) (11.6-15.3) Hematocrit 24.9 % 26.0 % (35.0-46.0) (35.0-46.0) Red Cell Distribution Width 18.1 % 17.6 % (11.6-17.2) (11.6-17.2) Neutrophils (%) (Auto) 92.9 % 80.4 % (16.0-70.0) (16.0-70.0) Lymphocytes (%) (Auto) 5.0 % (9.0-44.0) Neutrophils # (Auto) 10.3 TH/MM3 (1.8-7.7) Lymphocytes # (Auto) 0.5 TH/MM3 0.9 TH/MM3 (1.0-4.8) (1.0-4.8) Prothrombin Time 18.4 SEC 12.5 SEC (9.8-11.6) (9.8-11.6) Activated Partial 45.6 SEC 33.4 SEC Thromboplast Time (24.3-30.1) (24.3-30.1) Chloride Level 117 MEQ/L 115 MEQ/L (98-107) (98-107) Carbon Dioxide Level 19.8 MEQ/L (21.0-32.0) Blood Urea Nitrogen 43 MG/DL (7-18) 33 MG/DL (7-18) Creatinine 1.18 MG/DL (0.50-1.00) Estimat Glomerular Filtration 46 ML/MIN (>89) 78 ML/MIN (>89) Rate Random Glucose 119 MG/DL 110 MG/DL (74-106) (74-106) Calcium Level 7.8 MG/DL 7.6 MG/DL (8.5-10.1) (8.5-10.1) Total Protein 5.7 GM/DL 5.2 GM/DL (6.4-8.2) (6.4-8.2) Albumin 1.9 GM/DL 1.9 GM/DL (3.4-5.0) (3.4-5.0) Sodium Level 148 MEQ/L (136-145) Potassium Level 3.1 MEQ/L (3.5-5.1) Aspartate Amino Transf 53 U/L (15-37) (AST/SGOT) Blood Gas Oxygen Saturation 85 % (90-100) Arterial Blood pH 7.34 (7.380-7.420) Arterial Blood Partial 46 mmHg (38-42) Pressure CO2 Arterial Blood Partial 57 mmHg Pressure O2 (61-120) Blood Gas Hemoglobin 11.8 G/DL (12.0-16.0) Test 12/14/16 11:47 White Blood Count 25.4 TH/MM3 (4.0-11.0) Red Blood Count 3.38 MIL/MM3 (4.00-5.30) Hemoglobin 9.3 GM/DL (11.6-15.3) Hematocrit 29.1 % (35.0-46.0) Mean Corpuscular Hemoglobin 31.9 % Concent (32.0-36.0) Red Cell Distribution Width 18.4 % (11.6-17.2) Neutrophils (%) (Auto) 94.4 % (16.0-70.0) Lymphocytes (%) (Auto) 2.2 % (9.0-44.0) Neutrophils # (Auto) 24.0 TH/MM3 (1.8-7.7) Lymphocytes # (Auto) 0.6 TH/MM3 (1.0-4.8) Neutrophils % (Manual) 78 % (16-70) Band Neutrophils % 16 % (0-6) Lymphocytes % 4 % (9-44) Neutrophils # (Manual) 23.9 TH/MM3 (1.8-7.7) Keratocytes OCC (NORMAL) Imaging Chest x-ray portable(12/13) which was personally reviewed: Lung barrett with right basilar infiltrate, NG tube in place Last Impressions Lower Extremity Ultrasound 12/11/16 0000 Signed Impressions: Service Date/Time: Sunday, December 11, 2016 13:49 - CONCLUSION: Venous deep venous thrombosis on the right extending into the mid common femoral vein. This begins in the posterior tibia and extends into the popliteal vein. Sean Shabazz MD FACR Chest X-Ray 12/11/16 0000 Signed Impressions: Service Date/Time: Sunday, December 11, 2016 01:18 - CONCLUSION: No acute disease. Ck Cardoza Jr., MD Abdomen X-Ray 12/11/16 0000 Signed Impressions: Service Date/Time: Sunday, December 11, 2016 17:10 - CONCLUSION: Nonspecific abdomen. KAlyssia Hyman MD Head CT 12/08/16 0000 Signed Impressions: Service Date/Time: Thursday, December 08, 2016 11:34 - CONCLUSION: 1. No acute findings in the brain. 2. Focal scalp thickening high midline frontal region. No skull fracture seen. Ck Power MD CT Angiography 12/07/16 1844 Signed Impressions: Service Date/Time: Wednesday, December 07, 2016 19:40 - CONCLUSION: 1. No pulmonary embolus. 2. Limited evaluation otherwise but a fracture has clearly developed near the costochondral junction of the left fifth rib and surrounded by a large collection of fluid in the chest and upper abdominal wall, all new. A traumatic fracture with hematoma/seroma is felt most likely. I don't see a discrete mass or other clear etiology for any pathologic fracture. I also don't clearly see evidence of active bleeding. 3. Small, dependently layering and fairly low attenuation left pleural effusion now demonstrated. Nithin Hurley MD Hospital Course 70 year-old female with a medical history significant for moderate dementia, DVT for which she was recently started on Xarelto who was seen by Dr. Bhardwaj in his office on 12/08 or shortness of breath and weakness and failure to thrive. She was advised to come to the ER and presented next day on 12/09 to [place] ER. She was found to have a large hematoma involving her left chest wall at the side of her rib fracture and her anticoagulation was discontinued. Patient was evaluated by ID and hematology. She was found to have MRSA bacteremia and was septic. Workup reveal infected hematoma involving chest wall and she underwent I&D of infected hematoma on 12/[address] Mena. Subsequently she had been on the floor with an NG tube for tube feeds. This afternoon patient developed worsening shortness of breath with question of aspiration for which a rapid response was called. Patient's O2 sats were in the 80s and she was started on a nonrebreather facemask and transferred to the ICU. I was contacted by Dr. Bhardwaj who requested critical care consult for worsening respiratory failure. I evaluated the patient immediately on her arrival to the ICU. She appeared to be dyspneic using accessory muscles of respiration. She was given a stat nebulizer treatment with DuoNeb's with which her O2 sats came up in the 90s. Her NG tube was connected to suction. Chest x-ray done following rapid response revealed minimal right basilar infiltrate. I subsequently spoke with patient's son regarding her history and according to him she has not been doing well for the last few years since her 's and has been"wanting to ". She also has worsening memory problems/ dementia. She had continued to smoke up to the day of admission on 12/09. History was obtained by reviewing records and discussion with Dr. Gonzalez, patient 's family and rapid response team. Subjective 12/14: Afebrile. No acute events overnight. The patient was made DNR/DNI yesterday. Plan meeting this a.m. with palliative care team for discussion of goals of care. The family had decided to plan for hospice transfer today. However the patient subsequently had respiratory arrest, became bradycardic and at 1600, family and clergy at bedside. Samira Canchola MD Dec 14, 2016 16:36
--- NOTE | 2016-12-14 16:59 | HHI.PR ---
Subjective History of Present Illness Patient was confused agitated on restraint have SOB and Hypoxia . high WBC count again Blood culture grows MRSA have Sepsis on admission on vancomycin and Levaquin. no fever infectious disease input noted hematology and general surgery input noted for fluid collection left chest wall and upper abdomen. s/p fluid drainage which was pus s/p NG Tube in and on gavity for tube feeding d/w Sisters at bed side. vancomycin discontinued started on aztreonam chest wound grows Group A beta Strept. 12/14: Afebrile. No acute events overnight. The patient was made DNR/DNI yesterday. Plan meeting this a.m. with palliative care team for discussion of goals of care. The family had decided to plan for hospice transfer today. However the patient subsequently had respiratory arrest, became bradycardic and at 1600, family and clergy at bedside. Review of Systems Constitutional Constitutional Remarks unreliable ROS. Vitals/Results Intake & Output 12/13/16 12/13/16 12/14/16 15:00 23:00 07:00 Intake Total 1000 ml 1268 ml 207 ml Output Total 250 ml 50 ml 120 ml Balance 750 ml 1218 ml 87 ml IV Total 1000 ml 1268 ml 207 ml Output Urine Total 250 ml 50 ml 75 ml Gastric Drainage Total 0 ml 0 ml 45 ml # Bowel Movements 0 0 0 Vital Signs Vital Signs Date Time Temp Pulse Resp B/P Pulse Ox O2 Delivery O2 Flow Rate FiO2 12/14/16 12:00 97.6 125 15 84/47 89 12/14/16 08:29 92 Nasal Cannula 5.00 12/14/16 01:12 23 12/13/16 19:15 97.4 50 24 94/45 100 CBC/BMP: 12/14/16 1147 12/13/16 0649 Lab Results Laboratory Tests Test 12/14/16 11:47 White Blood Count 25.4 TH/MM3 Red Blood Count 3.38 MIL/MM3 Hemoglobin 9.3 GM/DL Hematocrit 29.1 % Mean Corpuscular Volume 86.0 FL Mean Corpuscular Hemoglobin 27.4 PG Mean Corpuscular Hemoglobin 31.9 % Concent Red Cell Distribution Width 18.4 % Platelet Count 216 TH/MM3 Mean Platelet Volume 8.0 FL Neutrophils (%) (Auto) 94.4 % Lymphocytes (%) (Auto) 2.2 % Monocytes (%) (Auto) 3.4 % Eosinophils (%) (Auto) 0.0 % Basophils (%) (Auto) 0.0 % Neutrophils # (Auto) 24.0 TH/MM3 Lymphocytes # (Auto) 0.6 TH/MM3 Monocytes # (Auto) 0.9 TH/MM3 Eosinophils # (Auto) 0.0 TH/MM3 Basophils # (Auto) 0.0 TH/MM3 CBC Comment AUTO DIFF Differential Total Cells 100 Counted Neutrophils % (Manual) 78 % Band Neutrophils % 16 % Lymphocytes % 4 % Monocytes % 2 % Neutrophils # (Manual) 23.9 TH/MM3 Differential Comment FINAL DIFF MANUAL Platelet Estimate NORMAL Platelet Morphology Comment NORMAL Keratocytes OCC Physical Exam Throat Throat Exam: Oral Pharynx Normal Extremeties Extremities Exam: No Edema Neurologic Neuro Remarks Dementia. VTE Prophylaxis VTE Remarks Xarelto PUD Prophylasis PUD Prophylaxis: Protonix Assessment/Plan Assessment/Plan ASSESSMENT/PLAN 1. This is a 70-year female who came to the ER diagnosed with altered mental status, unknown etiology. checked a CT scan of the brain without contrast shows nothing acute and metabolic workup..noted neurology input noted have dementia. 2. Possible dementia. Further recommendation per neurology...on Nemenda. 3. Failure to thrive. The patient is on Megace. We will Monitor. S/P NG Tube in and on Gavity for tube feeding. nutrionest on board. 4. History of right lower extremity DVT. The patient was on Xarelto 15 mg twice a day which is on hold . on heparin now. 5. Hypokalemia. resolved. 6. Chest pain, left-sided. Troponin less than 0.02 with Low creatinine kinase, atypical chest pain. 7. Left fifth rib costochondral fracture with a large collection of fluid in the chest and upper abdominal wall. S/P Drainage was turned out to be Pus. 8. The patient was on a blood thinner, Xarelto. Very sticky situation with DVT and a possible bleed. We will observe closely. hold Xarelto. hematology and general surgery input noted for fluid collection left chest wall and upper abdomen. s/p fluid drainage hematology agree with holding Xarelto. 9. Thrombocytosis, we will monitor. 10. Leukocytosis. We will monitor..better. 11. Hearing problem. 12. History of smoking. Advised to quit. 13. Depression. Continue with Lexapro 10 mg p.o. daily. 14. DVT prophylaxis. The patient was on Xarelto. 15. GI prophylaxis, Protonix 40 mg p.o. daily. 16. Sepsis on admission no fever no pneumonia on CT chest and Urine did not shows UTI..blood culture grows MRSA Sepsis on admission on vancomycin and Levaquin. infectious disease input noted 12/14: Afebrile. No acute events overnight. The patient was made DNR/DNI yesterday. Plan meeting this a.m. with palliative care team for discussion of goals of care. The family had decided to plan for hospice transfer today. However the patient subsequently had respiratory arrest, became bradycardic and at 1600, family and clergy at bedside. Ren Gonzalez MD Dec 14, 2016 16:59
== END 2016-12-14 18:01 | disposition expired | DRG 987 ==
LOC: PHED 18:32 → PHEDA 21:02 → PH3A 22:49 → N06B 12-10 22:42 → OBSVTOIN 12-11 12:50 → N05B 12-11 16:06 → N03B 12-13 12:28
PROVIDERS: ADMIT Family Medicine; ATTEND Family Medicine
PROC: 0DH67UZ Insertion of Feeding Device into Stomach, Via Natural or Artificial Opening (ICD-10-PCS; 2016-12-11)
PROC: 3E0G76Z Introduction of Nutritional Substance into Upper GI, Via Natural or Artificial Opening (ICD-10-PCS; 2016-12-11)
PROC: 30233K1 Transfusion of Nonautologous Frozen Plasma into Peripheral Vein, Percutaneous Approach (ICD-10-PCS; 2016-12-11)
PROC: 0J960ZZ Drainage of Chest Subcutaneous Tissue and Fascia, Open Approach (ICD-10-PCS; principal; 2016-12-11 09:22)
DX: S22.32XA Fracture of one rib, left side, initial encounter for closed fracture (principal); A41.02 Sepsis due to Methicillin resistant Staphylococcus aureus; D65 Disseminated intravascular coagulation [defibrination syndrome]; J96.01 Acute respiratory failure with hypoxia; E46 Unspecified protein-calorie malnutrition; S20.212A Contusion of left front wall of thorax, initial encounter; D47.3 Essential (hemorrhagic) thrombocythemia; R65.20 Severe sepsis without septic shock; E87.2 Acidosis; I82.4Z1 Acute embolism and thrombosis of unspecified deep veins of right distal lower extremity; L02.213 Cutaneous abscess of chest wall; J44.1 Chronic obstructive pulmonary disease with (acute) exacerbation; G30.9 Alzheimer's disease, unspecified; F02.80 Dementia in other diseases classified elsewhere, unspecified severity, without behavioral disturbance, psychotic disturbance, mood disturbance, and anxiety; R62.7 Adult failure to thrive; F32.9 Major depressive disorder, single episode, unspecified; M54.30 Sciatica, unspecified side; F17.200 Nicotine dependence, unspecified, uncomplicated; E87.6 Hypokalemia; Z79.01 Long term (current) use of anticoagulants; Z66 Do not resuscitate; F17.210 Nicotine dependence, cigarettes, uncomplicated; W19.XXXA Unspecified fall, initial encounter; F41.9 Anxiety disorder, unspecified; E56.1 Deficiency of vitamin K
CPT/HCPCS: 36430; 36600; 70450; 71010; 71020; 71275; 74000; 76937; 80053; 81001; 82140; 82550; 82607; 82746; 82805; 83605; 83735; 84100; 84132; 84439; 84443; 84484; 85007; 85025; 85027; 85384; 85610; 85730; 86403; 86592; 86900; 86901; 86927; 87015; 87040; 87070; 87102; 87116; 87186; 87205; 87206; 93005; 93970; 94640; 94664; 95819; 96360; C9113; G0378; G8987-GP; G8988-GP; J1644; J1956; J2060; J2270; J2370; J2405; J2710; J2930; J3010; J3370; J3430; J3480; J7030; J7040; J7050; P9017; Q9967